=== PATIENT | female | born 1985 | race Caucasian/White ===

== ENCOUNTER → 2019-07-22 11:59 | Outpatient (BNVA) | payer OTHER, SELFPAY | PROVIDERS: Family Provider Family Medicine; PCP Family Medicine; Visit Provider Nurse Practitioner Family | DX: E07.9 Disorder of thyroid, unspecified (principal); D64.9 Anemia, unspecified; R53.83 Other fatigue; E78.5 Hyperlipidemia, unspecified; R00.0 Tachycardia, unspecified | CPT/HCPCS: 80061; 82306; 82728; 83540; 83550; 84439; 84443; 84481; 86376 ==

== ENCOUNTER → 2019-08-26 11:22 | Outpatient (BNVA) | payer OTHER, SELFPAY | PROVIDERS: Family Provider Family Medicine; PCP Family Medicine; Visit Provider Nurse Practitioner Family | DX: E55.9 Vitamin D deficiency, unspecified (principal); E78.5 Hyperlipidemia, unspecified | CPT/HCPCS: 82306; 83540 ==

== ENCOUNTER → 2019-10-26 15:01 | Outpatient (BNVA) | payer OTHER, SELFPAY | PROVIDERS: Family Provider Family Medicine; PCP Family Medicine; Visit Provider Nurse Practitioner Family | DX: I10 Essential (primary) hypertension (principal); E55.9 Vitamin D deficiency, unspecified; R60.9 Edema, unspecified | CPT/HCPCS: 80048; 82306 ==

== ENCOUNTER → 2019-12-02 11:27 | Outpatient (BNVA) | payer OTHER, SELFPAY | PROVIDERS: Family Provider Family Medicine; PCP Family Medicine; Visit Provider Internal Medicine Rheumatology | DX: M19.90 Unspecified osteoarthritis, unspecified site (principal); Z79.899 Other long term (current) drug therapy; Z11.59 Encounter for screening for other viral diseases; Z11.1 Encounter for screening for respiratory tuberculosis; E61.1 Iron deficiency; Z72.89 Other problems related to lifestyle | CPT/HCPCS: 36415; 80076; 82565; 84443; 85025; 85651; 86038; 86140; 86431; 86480; 86704; 86803; 87340; 99203; 99204 ==

== ENCOUNTER 2020-09-19 22:18 | Emergency (ER) | payer OTHER, SELFPAY ==
[2020-09-19 22:21] VITALS: BP 171/75; PULSE 106; RESP 18; TEMP 36.7; O2SAT 98; BMI 27.4
--- NOTE | 2020-09-19 22:32 | XR_ITS ---
WS: [id number] Exam: XR chest 1V portable [id number] Date/Time of Exam: 09/19/2020 10:34 PM Reason For Exam: cough x 1 week Comparison 02/01/2011. Findings: The lungs are clear and fully expanded. Costophrenic angles are sharp. No infiltrates. Bronchovascula r relief appears normal. Cardiac silhouette is unremarkable. Bony elements are intact. XR/XR chest 1V portable [id number] IMPRESSION: Unremarkable chest radiograph.
--- NOTE | 2020-09-19 22:36 | ED_ITS ---
HPI - General Adult General: Chief complaint: General Medical Stated complaint: cough x 1 week Time Seen by Provider: 09/19/20 22:20 History of Present Illness: HPI narrative: Patient presents with a cough over the last week. Has seen her primary care provider who diagnosed her with flareup of her allergies receive some prednisone. Patient was doing a bit better then started having coughing fit when she was outside at her son's track meet. Does have a lot of clear nasal drainage drainage on back her throat and cough. Denies any fever chills shortness of breath. MD complaint: Cough and nasal drainage Onset (ago): day(s) Associated symptoms: Reports cough; Deny chest pain, dyspnea, headache(s), nausea, rash or vomiting Review of Systems Narrative: Has had scratchy throat scratchy roof the mouth eyes itching clear nasal drainage history of seasonal allergies but has been a while since she has had an attack like this. Const: Denies: fever(s), chills or body aches Eyes: Denies: change in vision or blurry vision ENMT: Reports: nasal congestion; Denies: throat pain Card: Denies: chest pain or dyspnea on exertion Resp: Reports: non-productive cough and chest congestion; Denies: dyspnea, productive cough, wheezing, stridor, pain on inspiration or hemoptysis GI: Denies: abdominal pain, nausea or vomiting Musc: Denies: extremity pain Skin/Breast: Denies: rash Neuro: Denies: headache(s) Psych: Denies: anxiety or depression Amadeo/Lymph: Denies: easy bruising PFSH ED PFSH: Medical History High risk medication use Hypertension Inflammatory arthritis Iron deficiency Pre-eclampsia Surgical History History of knee surgery History of laparoscopy Family History Mother Thyroid activity decreased Other Cancer Chronic kidney disease (CKD) Diabetes Family history of premature coronary artery disease Hypertension Lupus Rheumatoid arthritis Denies family history of Hyperlipidemia Lung disease Stroke Female Reproductive History: Date of last menstrual period: 07/28/19 Physical Exam Const: COMMON NORMALS: no acute distress, average body habitus and patient oriented x3 HENMT: COMMON NORMALS: normocephalic and TM's normal bilaterally HEAD & SCALP: normal to inspection and normocephalic FACE & SINUS: normal facial exam NOSE: Nasal discharge present clear TYMPANIC MEMBRANE: TM's normal bilaterally MOUTH: Normal oral and palatal mucosa present THROAT: posterior oropharynx normal Eye: COMMON NORMALS: conjunctivae normal GENERAL EYE: appearance normal, both eyes and all related structures CONJUNCTIVA: Yes conjunctivae normal Neck/C-Spine: COMMON NORMALS: no JVD Chest: COMMONS NORMALS: normal inspection of the chest Resp: COMMON NORMALS: normal respiratory effort and clear to auscultation bilaterally AUSCULTATION: clear to auscultation bilaterally Cardio: COMMON NORMALS: no JVD and regular rhythm RATE: tachycardic RHYTHM: regular rhythm GI: COMMON NORMALS: Normal to inspection, nondistended, normoactive bowel sounds present Extremity: COMMON NORMALS: normal to inspection and full ROM Neuro: COMMON NORMALS: patient oriented x3 Course Vital Signs: Vital signs: Vital Signs Temperature 98.1 F 09/19/20 22:21 Pulse Rate 106 H 09/19/20 22:21 Respiratory Rate 18 09/19/20 22:21 Blood Pressure 171/75 09/19/20 22:21 Pulse Oximetry 98 09/19/20 22:21 Discharge Plan Discharge Prescriptions: No Action labetalol 100 mg tablet 100 mg PO DAILY RF: 0 ferrous sulfate 325 mg (65 mg iron) tablet,delayed release (DR/EC) 325 mg PO BID Qty: 60 RF: 0 cholecalciferol (vitamin D3) 1,250 mcg (50,000 unit) capsule 1,250 mcg PO .weekly Qty: 4 RF: 2 prednisone 5 mg tablet 10 mg PO DAILY Qty: 60 RF: 3 bupropion HCl [Wellbutrin SR] 150 mg tablet sustained-release 12 hr 75 mg PO BID Qty: 60 RF: 1 Coding Level of Care Code ED [employer]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
[2020-09-19] MEDS: benzonatate 100 mg Capsule 200 MG PO (22:50)
[2020-09-19] MEDS: triamcinolone 40 mg/mL SDV 80 MG IM (23:10)
[2020-09-19 23:17] VITALS: BP 151/70; PULSE 100; RESP 18; O2SAT 100
== END 2020-09-19 23:18 | disposition home or self-care (01) ==
PROVIDERS: Emergency Provider Nurse Practitioner Family; PCP Family Medicine
DX: R05 Cough (principal); I10 Essential (primary) hypertension
CPT/HCPCS: 71045; 96372; 99283; J3301

== ENCOUNTER 2021-02-14 11:08 | Emergency (ER) | payer OTHER, SELFPAY ==
--- NOTE | 2021-02-14 | CTR_ITS ---
[facility] Final Radiology Report Call: [phone] assistance Online chat: [email or web address] Name: CHRISTINE CABALLERO Age: 35Years F Date: 02/14/2021 SSN: [id number] : 1985 Study: CT HEAD WO Requesting Physician: MEHREEN ARMENTA Images: [id number] Provided Clinical History: Headache with left-sided weakness Procedure Accession CTDI Vol (mGy) DLP (mGy-cm) CT HEAD WO [id number] 898.18 PROCEDURE INFORMATION: Exam: CT Head Without Contrast Exam date and time: 02/14/2021 11:33 AM Age: 35 years old Clinical indication: Pain; Headache not specified; Patient HX: Byrne/left side weakkness/high BP; Additional info: Headache with left-sided weakness TECHNIQUE: Imaging protocol: Computed tomography of the head without contrast. Radiation optimization: All CT scans at this facility use at least one of these dose optimization techniques: automated exposure control; mA and/or kV adjustment per patient size (includes targeted exams where dose is matched to clinical indication); or iterative reconstruction. COMPARISON: CT head wo con* [id number] 05/15/2015 1:14 PM RADIATION DOSE METRICS: Total DLP (mGy-cm): 898.18 FINDINGS: Brain: Normal. No hemorrhage. Unremarkable white matter. No mass effect. Cerebral ventricles: No ventriculomegaly. Paranasal sinuses: Visualized sinuses are unremarkable. No fluid levels. Mastoid air cells: Visualized mastoid air cells are well aerated. Bones/joints: Unremarkable. No acute fracture. Soft tissues: Unremarkable. IMPRESSION: No acute intracranial abnormality. Thank you for allowing us to participate in the care of your patient. Dictated and Authenticated by: Aung Joe MD 02/14/2021 1:14 PM Central Time ([place] & [place]) [facility]
[2021-02-14 11:12] VITALS: BP 169/106; PULSE 80; RESP 18; TEMP 36.7; O2SAT 100; BMI 31.1
--- NOTE | 2021-02-14 11:24 | ECG_ITS ---
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 Measurements Intervals [place] Rate: 79 P: 24 DE: 150 QRS: 0 QRSD: 93 T: 0 QT: 366 QTc: 421 Interpretive Statements SINUS RHYTHM No previous ECG available for comparison Electronically Signed On 02-14-2021 23:31:50 CDT by Mckay Jade M.D. [email or web address]
--- NOTE | 2021-02-14 11:24 | XR_ITS ---
WS: [id number] Portable AP upright chest, 02/14/2021 Clinical Data: CP Comparison: Portable chest, 09/19/2020. Findings: No nodules, masses or effusions are seen. The heart is normal. The pulmonary vascularity is not remarkable. No pneumothorax is present. Monitor leads on the chest wall. XR/XR chest 1V portable [id number] Impression: Negative chest.
--- NOTE | 2021-02-14 11:32 | W.ED.CHESTPA ---
HPI - Chest Pain General: Chief Complaint: Chest Pain Stated Complaint: hypertensive emergency Time Seen by Provider: 02/14/21 11:24 History of Present Illness: HPI narrative: Patient is a 35-year-old female comes to the ED via EMS with elevated blood pressures, headache and left-sided weakness. Symptoms started approximately 10 AM. She states she developed a really intense headache on the right side of her head and she says it seems like it is right behind the right eye. She rates the pain an 8 out of 10 and endorses photophobia. She also developed some left-sided weakness upon onset of headache. She described feeling like she could not control the left side of her body well. She says is now here in the ED most of her left-sided weakness has improved but still feels a little residual symptoms. The EMS reported elevated blood pressures. She denies any current chest pain, shortness of breath, abdominal pain, nausea/vomiting, bladder or bowel symptoms. Associated symptoms: Deny abdominal pain, dyspnea, fever(s), nausea, palpitations or vomiting Review of Systems Const: Denies: fever(s), chills or fatigue Eyes: Denies: change in vision or eye discomfort ENMT: Denies: throat pain, odynophagia, nasal discharge or nasal congestion Card: Denies: chest pain, palpitations, edema, swelling of feet/ankles, dyspnea on exertion or orthopnea Resp: Denies: dyspnea, productive cough or non-productive cough GI: Denies: abdominal pain, nausea, vomiting, diarrhea, constipation or hematochezia : Denies: flank pain, dysuria or hematuria Musc: Denies: neck pain, back pain or extremity swelling Skin/Breast: Denies: rash or new lesions Neuro: Reports: headache(s) and weakness in extremities (left upper and lower extremities); Denies: numbness in extremities PFS ED PFSH: Medical History High risk medication use Hypertension Inflammatory arthritis Iron deficiency Pre-eclampsia Surgical History History of knee surgery History of laparoscopy Family History Mother Thyroid activity decreased Other Cancer Chronic kidney disease (CKD) Diabetes Family history of premature coronary artery disease Hypertension Lupus Rheumatoid arthritis Denies family history of Hyperlipidemia Lung disease Stroke Female Reproductive History: Date of last menstrual period: 01/24/21 Physical Exam Const: COMMON NORMALS: no acute distress, patient oriented x3, healthy appearing and alert GENERAL APPEARANCE: cooperative and comfortable HENMT: COMMON NORMALS: normocephalic HEAD & SCALP: normocephalic MOUTH: Normal oral and palatal mucosa present THROAT: posterior oropharynx normal and uvula midline Eye: COMMON NORMALS: Equal, round and reactive pupils present and EOMs intact bilaterally PUPIL: Yes Equal, round and reactive pupils present Neck/C-Spine: COMMON NORMALS: supple GENERAL: Yes normal visual inspection Resp: COMMON NORMALS: normal respiratory effort, No retractions, No use of accessory muscles and clear to auscultation bilaterally AUSCULTATION: clear to auscultation bilaterally Cardio: COMMON NORMALS: regular rate, regular rhythm, S1 normal heart sound present, S2 normal heart sound present, No gallops present (Cardio), No clicks present (Cardio), No murmurs present (Cardio) and Peripheral pulses 2+ throughout RATE: regular rate RHYTHM: regular rhythm HEART SOUNDS: S1 normal heart sound present and S2 normal heart sound present PERIPHERAL PULSES: Peripheral pulses 2+ throughout GI: COMMON NORMALS: Normal to inspection, nondistended, normoactive bowel sounds present, Soft to palpation, non-tender and no masses PALPATION: Yes Soft to palpation : COMMON NORMALS: Yes no CVA tenderness BLADDER/KIDNEY EXAM: Yes no CVA tenderness Back/Pelvis: COMMON NORMALS: no CVA tenderness Extremity: COMMON NORMALS: normal to inspection Neuro: COMMON NORMALS: patient oriented x3, CN's II-XII intact bilaterally, moves all extremities, no focal motor deficits and no sensory deficits noted SENSORIUM/ORIENTATION: Yes alert COORDINATION/BALANCE: [id number] test normal SPEECH: speech normal SENSORY EXAM: Yes extremities (intact) MOTOR EXAM: 5/5 motor strength present throughout and Pronator motor function not present COORDINATION: [id number] test normal Skin: GENERAL SKIN EXAM: dry skin Course Reevaluation(s): Reevaluation #1: After patient received migraine meds her headache greatly improved and she is ready to go home and rest. Vital Signs: Vital signs: Vital Signs Temperature 98 F 02/14/21 14:11 Pulse Rate 68 02/14/21 14:11 Respiratory Rate 16 02/14/21 14:11 Blood Pressure 158/72 02/14/21 14:11 Pulse Oximetry 100 02/14/21 14:11 MDM - Chest Pain MDM Narrative: Medical decision making narrative: Patient is a 35-year-old female comes to the ED with a migraine headache and an episode of left sided weakness. Patient has a history of iron deficiency anemia. Left-sided weakness resolved upon arrival to the ED. Vital stable. Neuro exam showed no deficits. Hemoglobin 9.9 and the rest of CBC and CMP were unremarkable. CT of head showed no acute findings. EKG showed normal sinus rhythm, 79 bpm, no ST segment elevation or depression seen. Patient was given IV migraine meds and her headache improved greatly and she is ready to go home and rest. Patient diagnosed with migraine and anemia and discharged home. Told to follow-up with PCP in 5 to 7 days for reevaluation. Return ED precautions given. Told patient to have her hemoglobin rechecked at next PCP visit. Patient understood and agree with plan. Lab Data: Attestation: I reviewed the patient's lab results. Labs: Lab Results 02/14/21 02/14/21 02/14/21 11:00 11:00 11:00 WBC 13.8 10^3/uL H 10 ^3/uL (4.0-10.0) RBC 3.88 10^6/uL L 10 ^6/uL (4.1-5.3) Hgb 9.9 g/dL L g/dL (11.5-15.3) Hct 33.6 % L % (37.0-47.0) MCV 86.6 fl fl (81-99) MCH 25.5 pg L pg (28.0-34.0) MCHC 29.5 g/dL L g/dL (30.0-36.0) RDW 15.8 % H % (12.1-15.1) Plt Count 339 10^3/cmm 10^3 /cmm (130-400) MPV 10.8 fL H fL (7.4-10.4) Neut % (Auto) 60.1 % % Lymph % (Auto) 31.4 % % Runnels % (Auto) 5.7 % % Eos % (Auto) 1.4 % % Baso % (Auto) 0.7 % % Neut # (Auto) 8.28 10^3/uL H 10 ^3/uL (1.8-7.7) Lymph # (Auto) 4.3 10^3/uL 10^3/ uL (0.8-4.8) Runnels # (Auto) 0.8 10^3/uL 10^3/ uL (0.2-0.9) Eos # (Auto) 0.2 10^3/uL 10^3/ uL (0.0-0.8) Baso # (Auto) 0.1 10^3/uL 10^3/ uL (0.0-0.1) Nucleated RBC % (a uto) 0 % % Nucleated RBCs # 0.0 /100WBC /100W BC D-Dimer <= 0.27 ug/mIFEU ug/mIFEU (0-0.59) Sodium 138 mmol/L mmol/L (136-145) Potassium 3.8 mmol/L mmol/L (3.5-5.1) Chloride 98 mmol/L mmol/L (98-107) Carbon Dioxide 25 mmol/L mmol/L (22-29) Anion Gap 18.8 (5-19) BUN 8 mg/dL mg/dL (6-20) Creatinine 0.6 mg/dL mg/dL (0.5-0.9) GFR Calculation 112.5 mL/min mL/m in (90-130) Glucose 96 mg/dL mg/dL (65-115) Calculated Osmolal ity 284 mOsm/kg L mOs m/kg (285-295) Calcium 9.3 mg/dL mg/dL (8.5-10.5) Total Bilirubin 0.5 mg/dL mg/dL (0.15-1.2) AST 60 U/L H U/L (0-32) ALT 41 U/L H U/L (0-33) Alkaline Phosphata se 83 IU/L IU/L (35-105) Troponin T Baselin e Total Protein 6.9 g/dL g/dL (6.6-8.7) Albumin 4.4 g/dL g/dL (3.5-5.2) Globulin 2.5 g/dL g/dL (1.3-4.6) HCG, Qual 02/14/21 02/14/21 11:00 11:00 WBC RBC Hgb Hct MCV MCH MCHC RDW Plt Count MPV Neut % (Auto) Lymph % (Auto) Runnels % (Auto) Eos % (Auto) Baso % (Auto) Neut # (Auto) Lymph # (Auto) Runnels # (Auto) Eos # (Auto) Baso # (Auto) Nucleated RBC % (a uto) Nucleated RBCs # D-Dimer Sodium Potassium Chloride Carbon Dioxide Anion Gap BUN Creatinine GFR Calculation Glucose Calculated Osmolal ity Calcium Total Bilirubin AST ALT Alkaline Phosphata se Troponin T Baselin e 7 ng/L ng/L (0-10) Total Protein Albumin Globulin HCG, Qual Negative (Negative) Imaging Data^: CXR: Attestation: I personally reviewed and interpreted this imaging study as follows: Radiologist's impression: [facility] [address] [place] [id number] XRay Report Signed Patient: Sadaf Horner Unit #: [id number] : 1985 Age/Sex: 35 / F ADM Date: 02/14/21 Loc: ER Room/Bed: Attending Dr: Ordering Provider/Ordering MD: Mehreen Armenta Date of Service: 02/14/21 Procedure(s): XR chest 1V portable [id number] Accession Number(s): [id number] Report Number: [id number] WS: [id number] Portable AP upright chest, 02/14/2021 Clinical Data: CP Comparison: Portable chest, 09/19/2020. Findings: No nodules, masses or effusions are seen. The heart is normal. The pulmonary vascularity is not remarkable. No pneumothorax is present. Monitor leads on the chest wall. XR/XR chest 1V portable [id number] Impression: Negative chest. Dictated By: Lizet Braun MD Signed By: Lizet Braun MD Signed Date/Time: 02/14/211217 DD/ 121 CT Head: Attestation: I personally reviewed and interpreted this imaging study as follows: Radiologist's impression: [facility] Final Radiology Report Call: [phone] assistance Online chat: [email or web address] Name: SADAF HORNER Age: 35Years F Date: 02/14/2021 SSN: [id number] : 1985 Study: CT HEAD WO Requesting Physician: MEHREEN ARMENTA Images: [id number] Add?l Studies: Provided Clinical History: Headache with left-sided weakness Procedure Accession CTDI Vol (mGy) DLP (mGy-cm) CT HEAD WO [id number] 898.18 Page 1 of 2 PROCEDURE INFORMATION: Exam: CT Head Without Contrast Exam date and time: 02/14/2021 11:33 AM Age: 35 years old Clinical indication: Pain; Headache not specified; Patient HX: Byrne/left side weakkness/high BP; Additional info: Headache with left-sided weakness TECHNIQUE: Imaging protocol: Computed tomography of the head without contrast. Radiation optimization: All CT scans at this facility use at least one of these dose optimization techniques: automated exposure control; mA and/or kV adjustment per patient size (includes targeted exams where dose is matched to clinical indication); or iterative reconstruction. COMPARISON: CT head wo con* [id number] 05/15/2015 1:14 PM RADIATION DOSE METRICS: Total DLP (mGy-cm): 898.18 FINDINGS: Brain: Normal. No hemorrhage. Unremarkable white matter. No mass effect. Cerebral ventricles: No ventriculomegaly. Paranasal sinuses: Visualized sinuses are unremarkable. No fluid levels. Mastoid air cells: Visualized mastoid air cells are well aerated. Bones/joints: Unremarkable. No acute fracture. Soft tissues: Unremarkable. IMPRESSION: No acute intracranial abnormality. SADAF HORNER Final Radiology Report CONFIDENTIALITY STATEMENT This report is intended only for use by the referring physician, and only in accordance with law. If you received this in error, call [phone]. Page 2 of 2 Thank you for allowing us to participate in the care of your patient. Dictated and Authenticated by: Aung Joe MD 02/14/2021 1:14 PM Central Time ([place] & [place]) EKG Data^: EKG 1: Attestation: I personally reviewed and interpreted this EKG as follows: EKG interpretation date: 02/14/21 Interpretation: Normal sinus rhythm, 79 bpm, no ST segment elevation or depression seen. Discharge Plan Discharge Patient Disposition: Home Clinical Impression: Migraine Qualifiers: Migraine type: without aura Status migrainosus presence: without status migrainosus Intractability: not intractable Qualified Code(s): G43.009 - Migraine without aura, not intractable, without status migrainosus Anemia Qualifiers: Anemia type: unspecified type Qualified Code(s): D64.9 - Anemia, unspecified Condition: Stable Prescriptions: No Action omeprazole 40 mg capsule,delayed release(DR/EC) 40 mg PO QAM RF: 0 propranolol 20 mg tablet 40 mg PO BID RF: 0 prednisone 5 mg tablet 10 mg PO DAILY RF: 0 Discharge Orders: Discharge ED (Routine); Ordered 02/14/21 Ordered By: Mehreen Armenta Referrals: Bryson Staton DO [Primary Care Provider] - Discharge Diet: Regular Discharge Activity: Resume usual activity Patient Instructions: Migraine Headache (ED), Anemia (ED) Activity Restrictions/Additional Instructions: Follow-up with medical provider as directed in 5 to 7 days for reevaluation. Have your PCP recheck your hemoglobin level at next visit. Continue taking all home medications as previously prescribed. Return to the ER or your medical provider if condition worsens. Please read and understand discharge instructions. Thank you for choosing [facility] for your healthcare needs today. Please realize this is an emergency room and that we are providing you with a medical screening exam and this may not be complete and all inclusive of all the testing and or work up that you may need to determine your ailment or severity of your illness. It is very important that you follow up as instructed or that you return to the Emergency Department should you have concerns or if your condition changes or worsens in any way. 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
[2021-02-14 11:40] LABS: Basophils # 0.1 10^3/uL (0.0-0.1); Basophils % 0.7 %; Eosinophils # 0.2 10^3/uL (0.0-0.8); Eosinophils % 1.4 %; Hematocrit 33.6 % (37.0-47.0); Hemoglobin 9.9 g/dL (11.5-15.3); Lymphocytes # 4.3 10^3/uL (0.8-4.8); Lymphocytes % 31.4 %; Mean Corpuscular HGB Conc 29.5 g/dL (30.0-36.0); Mean Corpuscular Hemoglobin 25.5 pg (28.0-34.0); Mean Corpuscular Volume 86.6 fl (81-99); Mean Platelet Volume 10.8 fL (7.4-10.4); Monocytes # 0.8 10^3/uL (0.2-0.9); Monocytes % 5.7 %; Neutrophils # 8.28 10^3/uL (1.8-7.7); Neutrophils % 60.1 %; Nucleated Red Blood Cells % 0 %; Platelet Count 339 10^3/cmm (130-400); Red Blood Count 3.88 10^6/uL (4.1-5.3); Red Cell Distribution Width 15.8 % (12.1-15.1); White Blood Count 13.8 10^3/uL (4.0-10.0)
[2021-02-14 11:42] VITALS: BP 158/95; PULSE 78; RESP 18; TEMP 36.6; O2SAT 98
[2021-02-14 12:04] LABS: HCG, Serum Qual Negative (Negative)
[2021-02-14 12:11] LABS: D Dimer <= 0.27 ug/mIFEU (0-0.59)
[2021-02-14 12:13] LABS: Alanine Aminotransferase 41 U/L (0-33); Albumin Level 4.4 g/dL (3.5-5.2); Alkaline Phosphatase 83 IU/L (35-105); Anion Gap 18.8 (5-19); Aspartate Amino Transferase 60 U/L (0-32); Blood Urea Nitrogen 8 mg/dL (6-20); Calcium 9.3 mg/dL (8.5-10.5); Carbon Dioxide 25 mmol/L (22-29); Chloride 98 mmol/L (98-107); Globulin 2.5 g/dL (1.3-4.6); Glomerular Filtration Rate 112.5 mL/min (90-130); Glucose 96 mg/dL (65-115); Osmolality Calculated 284 mOsm/kg (285-295); Potassium 3.8 mmol/L (3.5-5.1); Sodium 138 mmol/L (136-145); Total Bilirubin 0.5 mg/dL (0.15-1.2); Total Protein 6.9 g/dL (6.6-8.7); Troponin(5th) Baseline 7 ng/L (0-10)
[2021-02-14] MEDS: ondansetron 2 mg/ML SDV 2 mL 4 MG IVP (12:28)
[2021-02-14] MEDS: sodium chloride 0.9% 1,000 ML 999 ML IV (12:28)
--- NOTE | 2021-02-14 12:54 | PC.PHAR ---
PT STATES SHE TAKES CARE OF HER OWN MEDICATIONS-PT BROUGHT IN MEDICATIONS BOTTLES-PT BROUGHT IN WELLBUTRIN SR 75MG BID RX LAST FILLED ON 01/11/21 60D/S PT STATES SHE DOESNT TAKE THIS MEDICATION STATES IT WAS FILLED ON ACCIDENT-PT STATES SHE IS STILL TAKES PREDNISONE 10MG DAILY [facility] LAST FILLED ON 12/02/2019 [facility] STATES THE RX HAD REFILLS BUT STATES THE PT NEVER REFILLED AND REFILLS ARE NOW PT DID NOT BRING IN THAT MEDICATION BOTTLE
[2021-02-14 13:02] VITALS: BP 170/101; PULSE 82; RESP 18; TEMP 36.6; O2SAT 100
[2021-02-14 13:29] VITALS: BP 161/87; PULSE 64; RESP 16; TEMP 36.6; O2SAT 100
[2021-02-14] MEDS: diphenhydrAMINE 50 mg/mL SDV 1mL 25 MG IVP (13:32)
[2021-02-14] MEDS: dexamethasone 10 mg/mL INJ IVP (13:32)
[2021-02-14] MEDS: ketorolac 30 mg/mL INJ IVP (13:33)
[2021-02-14 14:11] VITALS: BP 158/72; PULSE 68; RESP 16; TEMP 36.6; O2SAT 100
== END 2021-02-14 14:13 | disposition home or self-care (01) ==
PROVIDERS: Emergency Provider Physician Assistant; PCP Family Medicine
DX: G43.009 Migraine without aura, not intractable, without status migrainosus (principal); D64.9 Anemia, unspecified; I10 Essential (primary) hypertension
CPT/HCPCS: 70450; 71045; 80053; 84484; 84703; 85025; 85378; 87040; 93005; 96361; 96374; 96375; 99284; J1100; J1200; J1885; J2405; J7030

== ENCOUNTER 2021-03-01 13:40 | Outpatient (CLI) | payer OTHER, SELFPAY ==
--- NOTE | 2021-03-01 12:00 | CT_ITS ---
WS: [id number] CT ABDOMEN AND PELVIS WITH CONTRAST HISTORY: ABD PAIN, WEIGHT GAIN, DIARRHEA, HEMATOCHEZIA TECHNIQUE: Imaging performed of the abdomen and pelvis with IV contrast. Single phase imaging of the abdomen. Coronal and sagittal reformats are submitted. All CT scans at [facility] use at [facility] [facility] one of these dose optimization techniques: automated exposure control; mA and/or kV adjustment per patient size (includes targeted exams where dose is matched to clinical indication); or iterative re construction. IV CONTRAST: Omnipaque 300; 95 mL IV. Oral contrast: Yes. DLP: 1101.52 mGycm COMPARISON: None available. Lower thorax: Lung bases are clear. Heart is normal size. No hiatal hernia. Liver/biliary system: Moderate hepatic steatosis. Liver is also enlarged measuring 19.2 cm in length. Normal portal vein. No bile duct dilatation. Gallbladder: Normal. No gallstones or wall thickening. No pericholecystic fluid. Pancreas: Normal size pancreas and pancreatic duct. No adjacent inflammation. Spleen: Normal size spleen. No mass or infarct. Adrenal glands: Normal. Right kidney: Normal. Left kidney: Normal. Aorta: Normal. Lymphadenopathy: None. Free fluid: None. GI tract: Normal appendix. Mild diffuse fecal retention. No obstruction. Normal small bowel. Abdominal wall: Fat-containing umbilical hernia. Pelvis: Uterus is anteverted. There is a large well-circumscribed low-attenuation mass in the LEFT ad nexa. This mass extends over length of 6.1 cm x 5.3 x 6.1 cm. Most likely a complex cyst or endometri juancho. Bones: Unremarkable. CT/CT abdomen pelvis w con* [id number] IMPRESSION: 1. Moderate hepatomegaly and diffuse moderate hepatic steatosis. 2. Normal appendix. 3. Fat-containing abdominal wall hernia. 4. Well-circumscribed low-attenuation mass in the LEFT adnexa measures 6.1 x 5 .3 x 6.1 cm. Probably representing an ovarian cyst. With history of endometrios is could be this could be an endometrioma. Recommend follow-up transvaginal pel baldemar ultrasound imaging for further characterization.
[2021-03-01] MEDS: iohexol 300 mg/mL 50 mL Btl PO (14:07)
[2021-03-01] MEDS: iohexol 300 mg/mL 100 mL Btl IV (14:07)
== END 2021-03-01 13:41 | disposition home or self-care (01) ==
PROVIDERS: PCP Family Medicine; Visit Provider Surgery
DX: R10.9 Unspecified abdominal pain (principal); R63.5 Abnormal weight gain; R19.7 Diarrhea, unspecified; K92.1 Melena; R16.0 Hepatomegaly, not elsewhere classified; K76.0 Fatty (change of) liver, not elsewhere classified; K43.9 Ventral hernia without obstruction or gangrene; R22.32 Localized swelling, mass and lump, left upper limb
CPT/HCPCS: 74177; Q9967

== ENCOUNTER 2021-10-02 17:02 | Inpatient (IN) | payer OTHER, SELFPAY ==
[2021-10-02] VITALS (12 sets, daily range): BP systolic 125–181; BP diastolic 73–124; PULSE 67–102; RESP 16–20; TEMP 35.6–36.5; O2SAT 94–100; BMI 29.5
--- NOTE | 2021-10-02 17:35 | ED_ITS ---
HPI - Abdominal Pain General: Chief Complaint: Abdominal Pain Stated Complaint: eryn cp Time Seen by Provider: 10/02/21 17:28 History of Present Illness: Patient is a 36-year-old female comes to the ED with abdominal pain. Symptoms started approximately 3 days ago. Abdominal pain is located in the right upper quadrant and epigastric region that radiates into the chest and back. Abdominal pain is rated 10 out of 10. She endorses having some nausea and vomiting. Eating any food makes symptoms worse and started symptoms. She has had episodes like this before in the past but says this abdominal pain is worse than prior times. Associated Symptoms: Reports nausea and vomiting; Denies chills, constipation, diarrhea, dysuria, fever(s), hematochezia and hematuria Related Data: Date of Last Menstrual Period: 09/21/21 Review of Systems Const: Denies: fever(s), chills or fatigue Eyes: Denies: change in vision or eye discomfort ENMT: Denies: throat pain, odynophagia, nasal discharge or nasal congestion Card: Denies: chest pain, palpitations, edema, swelling of feet/ankles, dyspnea on exertion or orthopnea Resp: Denies: dyspnea, productive cough or non-productive cough GI: Reports: abdominal pain, nausea and vomiting; Denies: diarrhea, constipation or hematochezia : Denies: flank pain, dysuria or hematuria Musc: Denies: neck pain, back pain or extremity swelling Skin/Breast: Denies: rash or new lesions Neuro: Denies: headache(s), numbness in extremities or weakness in extremities PFS ED PFSH: Medical History High risk medication use Hypertension Inflammatory arthritis Iron deficiency Pre-eclampsia Surgical History History of knee surgery History of laparoscopy Family History Mother Thyroid activity decreased Other Cancer Chronic kidney disease (CKD) Diabetes Family history of premature coronary artery disease Hypertension Lupus Rheumatoid arthritis Denies family history of Hyperlipidemia Lung disease Stroke Social History Smoking and tobacco status: current every day smoker Female Reproductive History: Date of last menstrual period: 09/21/21 Physical Exam Const: COMMON NORMALS: patient oriented x3 and alert GENERAL APPEARANCE: cooperative HENMT: COMMON NORMALS: normocephalic HEAD & SCALP: normocephalic MOUTH: Normal oral and palatal mucosa present THROAT: posterior oropharynx normal and uvula midline Neck/C-Spine: COMMON NORMALS: supple GENERAL: Yes normal visual inspection Resp: COMMON NORMALS: normal respiratory effort, No retractions, No use of accessory muscles and clear to auscultation bilaterally AUSCULTATION: clear to auscultation bilaterally Cardio: COMMON NORMALS: regular rate, regular rhythm, S1 normal heart sound present, S2 normal heart sound present, No gallops present (Cardio), No clicks present (Cardio), No murmurs present (Cardio) and Peripheral pulses 2+ throughout RATE: regular rate RHYTHM: regular rhythm HEART SOUNDS: S1 normal heart sound present and S2 normal heart sound present PERIPHERAL PULSES: Peripheral pulses 2+ throughout GI: COMMON NORMALS: Normal to inspection, nondistended, normoactive bowel sounds present, Soft to palpation and no masses PALPATION: Yes Soft to palpation and Yes Tenderness to palpation present (GI) Details: RUQ (Tenderness with positive Hendrix sign) and other (Epigastric pain) : COMMON NORMALS: Yes no CVA tenderness BLADDER/KIDNEY EXAM: Yes no CVA tenderness Back/Pelvis: COMMON NORMALS: no CVA tenderness Extremity: COMMON NORMALS: normal to inspection Neuro: COMMON NORMALS: patient oriented x3 SENSORIUM/ORIENTATION: Yes alert GAIT: Yes Normal gait present Skin: GENERAL SKIN EXAM: dry skin Course Consultations: Consultation #1: I contacted Dr. Montero and told him about patient case. He agreed to have patient admitted. Time: 20:28 Vital Signs: Vital signs: Vital Signs Temperature 96.4 F L 10/02/21 17:03 Pulse Rate 83 10/02/21 18:24 Respiratory Rate 17 10/02/21 19:35 Blood Pressure 165/107 10/02/21 18:24 Pulse Oximetry 99 10/02/21 19:35 MDM - Abdominal Pain Medical Decision Making Patient is a 36-year-old female comes to the ED with epigastric and right upper quadrant abdominal pain that radiated to her back. Symptoms been going on for 3 days. Vitals are stable. Exam shows epigastric tenderness along with right upper quadrant abdominal tenderness. White blood cell count of 15.2 and lipase was over 300. Ultrasound gallbladder showed no acute gallbladder findings but noted some moderate hepatomegaly with fatty infiltrates of the liver .CT of abdomen showed moderate acute pancreatitis. Talk with Dr. Nassar and he agreed for patient to be admitted. I contacted the hospitalist and he accepted admission. Lab Data I reviewed the patient's lab results. : 10/02/21 17:56 10/02/21 17:56 Labs/Radiology: Radiology Impressions Gallbladder Ultrasound 10/02/21 17:36 IMPRESSION: Moderate hepatomegaly and moderate fatty infiltration of the liver. Abdomen/Pelvis CT 10/02/21 19:25 IMPRESSION: 1. Changes consistent with moderate acute pancreatitis as described in the report. 2. Moderate hepatomegaly and [id number] fatty infiltration of the liver. 3. Dominant follicle in the right ovary. 4. Scattered diverticula in the colon. No evidence for diverticulitis. 5. Incidental/nonacute findings are listed in the report. Laboratory Results WBC 15.2 10^3/uL (4.0-10.0) H 10/02/21 17:56 RBC 4.28 10^6/uL (4.1-5.3) 10/02/21 17:56 Hgb 16.3 g/dL (11.5-15.3) H 10/02/21 17:56 Hct 45.5 % (37.0-47.0) 10/02/21 17:56 MCV 106.3 fl (81-99) H 10/02/21 17:56 MCH 38.1 pg (28.0-34.0) H 10/02/21 17:56 MCHC 35.8 g/dL (30.0-36.0) 10/02/21 17:56 RDW 13.2 % (12.1-15.1) 10/02/21 17:56 Plt Count 325 10^3/cmm (130-400) 10/02/21 17:56 MPV 10.6 fL (7.4-10.4) H 10/02/21 17:56 Neut % (Auto) 71.9 % 10/02/21 17:56 Lymph % (Auto) 19.9 % 10/02/21 17:56 Frontier % (Auto) 4.6 % 10/02/21 17:56 Eos % (Auto) 2.2 % 10/02/21 17:56 Baso % (Auto) 0.7 % 10/02/21 17:56 Neut # (Auto) 10.96 10^3/uL (1.8-7.7) H 10/02/21 17:56 Lymph # (Auto) 3.0 10^3/uL (0.8-4.8) 10/02/21 17:56 Frontier # (Auto) 0.7 10^3/uL (0.2-0.9) 10/02/21 17:56 Eos # (Auto) 0.3 10^3/uL (0.0-0.8) 10/02/21 17:56 Baso # (Auto) 0.1 10^3/uL (0.0-0.1) 10/02/21 17:56 Nucleated RBC % (auto) 0 % 10/02/21 17:56 Nucleated RBCs # 0.0 /100WBC 10/02/21 17:56 Sodium 136 mmol/L (136-145) 10/02/21 17:56 Potassium 3.7 mmol/L (3.5-5.1) 10/02/21 17:56 Chloride 98 mmol/L (98-107) 10/02/21 17:56 Carbon Dioxide 21 mmol/L (22-29) L 10/02/21 17:56 Anion Gap 20.7 (5-19) H 10/02/21 17:56 BUN 10 mg/dL (6-20) 10/02/21 17:56 Creatinine 0.6 mg/dL (0.5-0.9) 10/02/21 17:56 GFR Calculation 111.9 mL/min (90-130) 10/02/21 17:56 Glucose 114 mg/dL (65-115) 10/02/21 17:56 Calculated Osmolality 282 mOsm/kg (285-295) L 10/02/21 17:56 Calcium 10.8 mg/dL (8.5-10.5) H 10/02/21 17:56 Total Bilirubin 0.9 mg/dL (0.15-1.2) 10/02/21 17:56 AST 134 U/L (0-32) H 10/02/21 17:56 ALT 114 U/L (0-33) H 10/02/21 17:56 Alkaline Phosphatase 107 IU/L (35-105) H 10/02/21 17:56 Troponin T Baseline 6 ng/L (0-10) 10/02/21 17:56 Troponin T 120 Minute 6.00 ng/L (0-10) 10/02/21 19:32 Delta Troponin T 0 ABS# (0-10) 10/02/21 19:32 Total Protein 8.1 g/dL (6.6-8.7) 10/02/21 17:56 Albumin 4.9 g/dL (3.5-5.2) 10/02/21 17:56 Globulin 3.2 g/dL (1.3-4.6) 10/02/21 17:56 Lipase > 300 U/L (13-60) H 10/02/21 17:56 HCG, Qual Negative (Negative) 10/02/21 17:56 EKG Data EKG 1: EKG interpretation date: 10/02/21 Interpretation: EKG performed at 1737 and I reviewed it at 1740 sinus rhythm, 80 bpm, no ST segment elevation or depression seen. Discharge Plan Discharge Condition: Stable Prescriptions: No Action ondansetron HCl 4 mg tablet 4 mg PO Q6H Qty: 20 0RF omeprazole 40 mg capsule,delayed release(DR/EC) 40 mg PO QAM 0RF propranolol 20 mg tablet 40 mg PO BID 0RF ibuprofen 200 mg Tablet 200 mg PO Q6H PRN (Reason: Pain) 0RF Amadeo-Plex 85 mg PO DAILY 0RF Referrals: Alyce Noonan MD [Primary Care Provider] - Coding Level of Care Code ED Transitional Care Nurse for Chg Fwd Exam Comprehensive
--- NOTE | 2021-10-02 17:36 | ECG_ITS ---
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 Measurements Intervals [place] Rate: 73 P: 44 [place]: 171 QRS: -5 QRSD: 94 T: -7 QT: 378 QTc: 418 Interpretive Statements SINUS RHYTHM Compared to ECG 10/02/2021 17:37:13 No significant changes Electronically Signed On 10-02-2021 22:57:17 CDT by Oneil Simon M.D. [email or web address] [facility] [place].Zenvergebaptist memorial hospitalInauracleveland clinic euclid hospitalWeGush/store/OM/[id number]
--- NOTE | 2021-10-02 17:36 | USR_ITS ---
PROCEDURE INFORMATION: Exam: US Abdomen, Limited; Right Upper Quadrant Exam date and time: 10/02/2021 6:03 PM Age: 36 years old Clinical indication: Abdominal pain; Acute; Additional info: Ruq abdominal pain with n/v TECHNIQUE: Imaging protocol: US abdomen. Real time ultrasound with image documentation. Limited exam focused on the right upper quadrant. COMPARISON: CT abdomen pelvis w con* [id number] 03/01/2021 2:03 PM FINDINGS: Liver: Moderately increased echotexture in the liver, consistent with moderate fatty infiltration. The liver is moderately enlarged measuring 22.7 cm in length. Gallbladder: The gallbladder is unremarkable. No gallstones or intraluminal sludge. No gallbladder wall thickening. No pericholecystic fluid. Biliary ducts: Normal. No stones. No dilation. Pancreas: Incomplete visualization of the pancreas due to overlying bowel gas. Visualized portions of the pancreas are unremarkable. Right kidney: The right kidney is unremarkable. Aorta: Visualized aorta is unremarkable. Inferior vena cava: Visualized IVC is unremarkable. Portal venous: Hepatopetal flow in the portal vein. Intraperitoneal space: No ascites. US/US gall bladder [id number] IMPRESSION: Moderate hepatomegaly and moderate fatty infiltration of the liver.
[2021-10-02] MEDS: sodium chloride 0.9% 1,000 ML 999 ML IV ×2 (18:06→20:40)
[2021-10-02] MEDS: diphenhydrAMINE 50 mg/mL SDV 1mL IVP (18:06)
[2021-10-02] MEDS: ondansetron 2 mg/ML SDV 2 mL 4 MG IVP (18:06)
[2021-10-02 18:21] LABS: Basophils # 0.1 10^3/uL (0.0-0.1); Basophils % 0.7 %; Eosinophils # 0.3 10^3/uL (0.0-0.8); Eosinophils % 2.2 %; Hematocrit 45.5 % (37.0-47.0); Hemoglobin 16.3 g/dL (11.5-15.3); Lymphocytes % 19.9 %; Mean Corpuscular HGB Conc 35.8 g/dL (30.0-36.0); Mean Corpuscular Hemoglobin 38.1 pg (28.0-34.0); Mean Corpuscular Volume 106.3 fl (81-99); Mean Platelet Volume 10.6 fL (7.4-10.4); Monocytes # 0.7 10^3/uL (0.2-0.9); Monocytes % 4.6 %; Neutrophils # 10.96 10^3/uL (1.8-7.7); Neutrophils % 71.9 %; Nucleated Red Blood Cells % 0 %; Platelet Count 325 10^3/cmm (130-400); Red Blood Count 4.28 10^6/uL (4.1-5.3); Red Cell Distribution Width 13.2 % (12.1-15.1); White Blood Count 15.2 10^3/uL (4.0-10.0)
[2021-10-02] MEDS: morphine 4 mg/mL SDV 1 mL IVP ×2 (18:24→19:35)
[2021-10-02 18:54] LABS: HCG, Serum Qual Negative (Negative)
--- NOTE | 2021-10-02 19:25 | CTR_ITS ---
PROCEDURE INFORMATION: Exam: CT Abdomen And Pelvis Without Contrast Exam date and time: 10/02/2021 7:47 PM Age: 36 years old Clinical indication: Abdominal pain; Prior surgery; Surgery date: 6+ months; Surgery type: Leep, and laser lap; Additional info: Epigastric and ruq abdominal pain, n/v TECHNIQUE: Imaging protocol: Computed tomography of the abdomen and pelvis without contrast. Sagittal and coronal reformatted images were created and reviewed. Radiation optimization: All CT scans at this facility use at least one of these dose optimization techniques: automated exposure control; mA and/or kV adjustment per patient size (includes targeted exams where dose is matched to clinical indication); or iterative reconstruction. COMPARISON: 1. CT abdomen pelvis w con* [id number] 03/01/2021 2:03 PM 2. US gall bladder [id number] 10/02/2021 6:03 PM RADIATION DOSE METRICS: Total DLP (mGy-cm): 1556.31 FINDINGS: Lungs: Dependent atelectasis in the visualized lungs. Pleural spaces: No pleural effusion. Heart: Visualized cardiac chambers are unremarkable. Liver: Diffuse, [id number]-fa-wvjbqxnz decreased density in the liver. Findings are consistent with fatty infiltration. The liver is moderately enlarged measuring 22.3 cm in length (series 602, image 37). Gallbladder and bile ducts: The gallbladder is unremarkable. No biliary ductal dilatation. Pancreas: Enlargement of the pancreas. Moderate peripancreatic inflammatory change and free fluid, consistent with moderate acute pancreatitis. Spleen: The spleen is unremarkable. Adrenal glands: The right and left adrenal glands are unremarkable. Kidneys and ureters: The right and left kidneys are unremarkable. The right and left ureters are unremarkable. Stomach and bowel: Secondary inflammatory change of the 2nd and 3rd portions of the duodenum. Scattered diverticula in the colon. No evidence for diverticulitis. No acute abnormality in the small bowel. No acute abnormality in the stomach. Appendix: The appendix is visualized and is unremarkable. No findings to suggest acute appendicitis. Intraperitoneal space: No free intraperitoneal air. No ascites. No loculated fluid collections to suggest an abscess. 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 Incidental note of a circumaortic left renal vein. Lymph nodes: No lymphadenopathy. Urinary bladder: Unremarkable as visualized. Reproductive: The uterus is unremarkable. Dominant follicle in the right ovary measuring 2.3 x 1.5 cm (series 2, image 65). Bones/joints: Degenerative changes in the spine and hips. Soft tissues: No acute abnormality in the extra-abdominal soft tissues. CT/CT abdomen pelvis wo con [id number] IMPRESSION: 1. Changes consistent with moderate acute pancreatitis as described in the report. 2. Moderate hepatomegaly and pwja-fl-kwhegdun fatty infiltration of the liver. 3. Dominant follicle in the right ovary. 4. Scattered diverticula in the colon. No evidence for diverticulitis. 5. Incidental/nonacute findings are listed in the report.
--- NOTE | 2021-10-02 19:36 | ECG_ITS ---
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 Measurements Intervals [place] Rate: 80 P: 6 MO: 177 QRS: 0 QRSD: 100 T: -5 QT: 366 QTc: 425 Interpretive Statements SINUS RHYTHM Compared to ECG 02/14/2021 11:27:47 No significant changes Electronically Signed On 10-02-2021 22:59:39 CDT by Oneil Simon M.D. [email or web address] Therapeuticslaird hospitalRedfin Networkmercy health willard hospital.[employer]/store/OM/[id number]
[2021-10-02 19:49] LABS: Troponin(5th) Baseline 6 ng/L (0-10)
[2021-10-02 19:52] LABS: Alanine Aminotransferase 114 U/L (0-33); Albumin Level 4.9 g/dL (3.5-5.2); Alkaline Phosphatase 107 IU/L (35-105); Anion Gap 20.7 (5-19); Aspartate Amino Transferase 134 U/L (0-32); Blood Urea Nitrogen 10 mg/dL (6-20); Calcium 10.8 mg/dL (8.5-10.5); Carbon Dioxide 21 mmol/L (22-29); Chloride 98 mmol/L (98-107); Globulin 3.2 g/dL (1.3-4.6); Glomerular Filtration Rate 111.9 mL/min (90-130); Glucose 114 mg/dL (65-115); Osmolality Calculated 282 mOsm/kg (285-295); Potassium 3.7 mmol/L (3.5-5.1); Sodium 136 mmol/L (136-145); Total Bilirubin 0.9 mg/dL (0.15-1.2); Total Protein 8.1 g/dL (6.6-8.7)
[2021-10-02 19:59] LABS: Lipase > 300 U/L (13-60)
[2021-10-02 20:16] LABS: Troponin 5 2HR Delta 0 ABS# (0-10)
[2021-10-02] MEDS: HYDROmorphone 1 mg/mL INJ 1 mL 0.5 MG IVP (20:39)
--- NOTE | 2021-10-02 21:07 | P.HP_ITS ---
Providers/Chief Complaint Primary Care Provider: Alyce Noonan MD Chief Complaint: sob, cp History of Present Illness The patient is a 36-year-old female who presented to [facility] abdominal pain which are proximate 4 days prior to hospitalization. She states it has been of gradual onset in the epigastric area with radiation in a bandlike area across her upper abdomen. She describes the pain as sharp, dull, and stabbing. Since the time of onset's been constant. As worst rated 10 out of 10 currently rates 07 out of 10. She took Tylenol at home which did not improve the pain. She indicates that her pain is worse with eating. She states that she takes ibuprofen 800 mg by mouth although on most days of the week. She states that her last bowel movement was on this day of hospitalization. She states she has chronic diarrhea. She denies T8 diarrhea or melena. She missed of bright red blood per rectum. She admits to nausea and vomiting. She denies fever records. She present for further evaluation Review of Systems General: Reports: 10 or more systems reviewed and unremarkable except in HPI and below Medications/Allergies Home Medications Medication Instructions Recorded Confirmed Last Taken Type omeprazole 40 mg capsule,delayed 40 mg PO QAM 02/14/21 10/02/21 10/02/21 History release propranolol 20 mg tablet 40 mg PO BID 02/14/21 10/02/21 10/02/21 History Amadeo-Plex 85 mg PO DAILY 10/02/21 10/02/21 10/02/21 History ibuprofen 200 mg tablet 200 mg PO Q6H PRN 10/02/21 10/02/21 10/02/21 History ondansetron HCl 4 mg tablet 4 mg PO Q6H #20 tab 10/02/21 10/02/21 Unknown Rx Allergies Allergy/AdvReac Type Severity Reaction Status Date / Time codeine Allergy swelling Verified 10/02/21 20:21 Penicillins Allergy rash Verified 10/02/21 20:21 PFSH Acute PFSH: Medical History High risk medication use Hypertension Inflammatory arthritis Iron deficiency Pre-eclampsia Surgical History History of knee surgery History of laparoscopy Family History Mother Thyroid activity decreased Other Cancer Chronic kidney disease (CKD) Diabetes Family history of premature coronary artery disease Hypertension Lupus Rheumatoid arthritis Denies family history of Hyperlipidemia Lung disease Stroke Social History Smoking and tobacco status: current every day smoker Female Reproductive History: Date of last menstrual period: 09/21/21 Vitals/I&O/Wt Last Vital Signs Temp 96.4 F L 10/02/21 17:03 Pulse 83 10/02/21 18:24 Resp 18 10/02/21 20:39 BP 165/107 10/02/21 18:24 Pulse Ox 99 10/02/21 20:39 10/02/21 10/02/21 10/02/21 06:59 14:59 22:59 Intake Total 1000 / 1000 Balance 1000 / 1000 Weight last 48 hrs Weight 72.575 kg Physical Exam Narrative: General: -Alert -No acute distress -No dyspnea -No tachypnea Head: -Atraumatic -Normocephalic Eyes: -Pupils equally round and reactive to light and accommodation -Extraocular muscles intact Neurological: -Cranial nerves II-XII intact Neck: -No jugular venous distention -No thyromegaly -No cervical lymphadenopathy Heart: -Regular rate -Regular rhythm -No murmurs -No gallops -No rubs Lungs: -No wheeze -No rhonchi -No rales ? Abdomen: -Normal bowel sounds in all four quadrants -No rebound -No guarding -No tenderness Extremities: -2/4 pulse in all four extremities -No clubbing -No cyanosis -No edema -No calf tenderness present bilaterally -Negative Katherine?s sign bilaterally Musculoskeletal: -5/5 bilateral upper extremity strength -5/5 bilateral lower extremity strength -Sensorium of bilateral upper extremities are equal and intact -Sensorium of bilateral lower extremities are equal and intact ? Additional Details / Additional Findings / Exceptions / Miscellaneous: Data : 10/02/21 17:56 10/02/21 17:56 A&P Assessment and plan (1) Nausea and vomiting: Status: Acute Plan Acute panic otitis, likely alcohol induced. Nothing by mouth. Will monitor lipase level daily. Check fasting lipid panel. IV normal saline 100 ML's per hour Transaminitis, likely alcohol induced. Will monitor LFTs periodically with CMP along with PT/INR Erythrocytosis. Will monitor hemoglobin level intermittently. IV normal saline 100 ML's per hour History of hyperuricemia Arthritis Treatment iron deficiency with subsequent iron overload. Check serum ferritin, and iron panel Macrocytosis. Check TSH, free T4, B12, folate level GERD. Protonix 40 millions IV twice a day Hyperlipidemia. Fasting lipid panel pending Hypertension Obesity. The patient becomes regarding lifestyle modification Smoker. The patient becomes regarding smoking cessation Hepatic steatosis Diverticulosis Alcohol abuse. Seizure precautions. Case management referral for alcohol rehabilitation. IV when necessary Ativan on a sliding scale Reported bright red blood per rectum. Will monitor hemoglobin level intermittently. Protonix 40 Mill grams IV twice a day. Fecal occult blood pending DVT Proflex is. Bilateral SCD Attestations Medical Necessity Statement*: Anticipate length of stay is greater than 2 minutes 5 treatments of her pancreatitis Coding Level of Care Code Acute Gaming Cage Cashier for Chg Fwd Diagnoses Nausea and vomiting R11.2
[2021-10-02 21:48] LABS: Folate Level 6.1 ng/mL (4.8-37.3)
[2021-10-02 22:02] LABS: Free T4 Free Thyroxine 1.02 ng/dL (0.82-1.77); Thyroid Stimulating Hormone 0.92 uIU/mL (0.27-4.20)
[2021-10-02] MEDS: pantoprazole 40 mg SDV IVP (22:20)
[2021-10-02] MEDS: morphine 4 mg/mL SDV 1 mL 2 MG IVP (22:20)
[2021-10-02] MEDS: sodium chloride 0.9% 1,000 ML 100 ML IV (22:21)
[2021-10-02] MEDS: hyDRALAzine 20 mg/mL INJ 1 mL 10 MG IVP (22:21)
[2021-10-02 23:36] LABS: INR 1.01 (0.8-1.2)
--- NOTE | 2021-10-02 23:36 | ECG_ITS ---
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 Measurements Intervals [place] Rate: 95 P: 55 [place]: 183 QRS: 5 QRSD: 94 T: 8 QT: 359 QTc: 452 Interpretive Statements SINUS RHYTHM Compared to ECG 10/02/2021 20:31:58 No significant changes Electronically Signed On 10-03-2021 22:59:33 CDT by Norma Tucker M.D. [id number]
[2021-10-03] VITALS (11 sets, daily range): BP systolic 133–168; BP diastolic 74–90; PULSE 64–96; RESP 16–20; TEMP 36.2–37.1; O2SAT 94–99
[2021-10-03 01:08] LABS: Ferritin 164 ng/mL (15-150); Iron 85 ug/dL (37-145); Percent Saturation 29.9 % (20-50); Total Iron Binding Capacity 284 mcg/dl; Unsaturated Iron Binding 199 ug/dL (112-347)
[2021-10-03 01:23] LABS: Vitamin B12 1641 pg/mL (232-1245)
[2021-10-03 01:41] LABS: Add Urine Microscopic? NO; Charge for UA Resulting for Rev
[2021-10-03 01:47] LABS: Bilirubin Urine Neg (Negative); Blood Urine Neg (Negative); Glucose Urine UA Norm (Normal); Ketones Urine 1+ (Negative); Leukocyte Esterase Urine Negative (Negative); Nitrate Urine Negative (Negative); Protein Urine Neg (Negative); Urine Appearance Clear (CLEAR); Urine Color Yellow (Yellow); Urobilinogen Urine Norm (Negative); pH Urine 5 (5-7)
[2021-10-03] MEDS: morphine 4 mg/mL SDV 1 mL 2 MG IVP ×5 (02:15→17:45)
[2021-10-03 02:43] LABS: Basophils % 0.3 %; Eosinophils % 0.1 %; Hemoglobin 15.3 g/dL (11.5-15.3); Lymphocytes # 1.1 10^3/uL (0.8-4.8); Lymphocytes % 9.1 %; Mean Corpuscular HGB Conc 34.8 g/dL (30.0-36.0); Mean Corpuscular Hemoglobin 38.1 pg (28.0-34.0); Mean Corpuscular Volume 109.5 fl (81-99); Mean Platelet Volume 10.7 fL (7.4-10.4); Monocytes # 0.2 10^3/uL (0.2-0.9); Monocytes % 1.9 %; Neutrophils # 10.32 10^3/uL (1.8-7.7); Neutrophils % 87.7 %; Nucleated Red Blood Cells % 0 %; Platelet Count 231 10^3/cmm (130-400); Red Blood Count 4.02 10^6/uL (4.1-5.3); Red Cell Distribution Width 13.1 % (12.1-15.1); White Blood Count 11.8 10^3/uL (4.0-10.0)
[2021-10-03 03:03] LABS: Troponin 5 6HR 6.31 ng/L (0-10)
[2021-10-03 03:07] LABS: Alanine Aminotransferase 81 U/L (0-33); Alkaline Phosphatase 88 IU/L (35-105); Aspartate Amino Transferase 83 U/L (0-32); Blood Urea Nitrogen 8 mg/dL (6-20); Calcium 8.7 mg/dL (8.5-10.5); Carbon Dioxide 17 mmol/L (22-29); Chloride 106 mmol/L (98-107); Chol HDL Ratio 8.79 mg/dL (0.0-4.40); Cholesterol 246 mg/dL (0-200); Creatinine Clr Calc Pharmacy 148.4718; Globulin 2.7 g/dL (1.3-4.6); Glomerular Filtration Rate 138.1 mL/min (90-130); Glucose 143 mg/dL (65-115); HDL Cholesterol 28 mg/dL (60-100); LDL Cholesterol Calculated 168 mg/dL (50-129); Osmolality Calculated 287 mOsm/kg (285-295); Sodium 138 mmol/L (136-145); Total Bilirubin 0.7 mg/dL (0.15-1.2); Total Protein 6.7 g/dL (6.6-8.7); Triglycerides 251 mg/dL (0-150)
[2021-10-03 03:24] LABS: Anion Gap 19.1 (5-19); Lipase 1045 U/L (13-60); Potassium 4.1 mmol/L (3.5-5.1)
[2021-10-03 04:17] LABS: Troponin 5 6HR Delta 0.31 ng/L (0-12)
--- NOTE | 2021-10-03 05:47 | NUR.SHIFT ---
Up independently in room. Did have complaint of pain with PRN medications given. Continent and voids via toilet. UA sent to lab. IV infusing NS at 100ml/hr. Patient is NPO. Stool specimen not collected yet due to no bm this shift. Did have hypertension that resolved with prn IV Hydralazine. No s/s of withdrawal noted, no anxiety observed or reported to this RN.
[2021-10-03] MEDS: sodium chloride 0.9% 1,000 ML 100 ML IV ×2 (08:13→17:45)
[2021-10-03] MEDS: pantoprazole 40 mg SDV IVP ×2 (09:54→20:46)
--- NOTE | 2021-10-03 10:37 | PM.PN ---
Subjective Subjective: Patient reports continued epigastric pain. Describes as severe at times. Reports the pain medication does take the edge off but does not make her pain free. She denies any nausea or vomiting overnight. Denies fevers, chills, chest pain, or shortness of breath. Medications: Reviewed: Yes Vitals/I&O/Wt Last Vital Signs Temp 97.4 F L 10/03/21 07:52 Pulse 85 10/03/21 07:52 Resp 16 10/03/21 09:56 BP 143/90 10/03/21 07:52 Pulse Ox 94 10/03/21 07:52 10/02/21 10/03/21 10/03/21 22:59 06:59 14:59 Intake Total 1999 986.667 / 986.667 Output Total 550 / 550 Balance 1999 -550 / 1450 986.667 / 986.667 Weight last 48 hrs Weight 75.523 kg Weight 72.575 kg Physical Exam Narrative: General: Patient is awake and alert. Appears ill. Head:? Normocephalic. Atraumatic. EOM intact. Neck: No JVD. Cardiovascular: RRR. No gallops. No murmurs. No peripheral edema. Lungs: Clear to auscultation, no use of accessory muscles, no crackles or wheezes. Skin: No jaundice. No rashes. Abdomen: Hypoactive bowel sound. Abdomen is tender to palpation in epigastric region. No guarding. Genito Urinary: Posada catheter Extremeties: No cyanosis or clubbing. Musculoskeletal: 5/5 strength, normal range of motion, no swollen or erythematous joints. Neurological: Moves all 4 extremities. No myoclonus. Data : 10/03/21 01:45 10/03/21 01:45 A&P Assessment and plan (1) Pancreatitis, alcoholic, acute: Continue IV fluid resuscitation. Advance to clear liquid diet as tolerated. Status: Acute (2) Alcohol abuse: Will need further counseling on alcohol treatment and resources. Continue to monitor for withdrawal. Ativan PRN. Status: Acute (3) Bright red blood per rectum: No complaints today. Continue PPI. Monitor HGB. Status: Acute (4) Nausea and vomiting: Antiemetics as needed. Discussed slow and controlled PO intake when symptoms improve. Status: Acute (5) Transaminitis: Secondary to ETOH. Continue to monitor. Avoid other hepatotoxins. Status: Acute (6) Abdominal pain: 2/2 acute pancreatitis. IV pain medication as needed. Status: Acute (7) Iron deficiency: Monitor HGB Status: Acute (8) High risk medication use: Status: Acute (9) Pre-eclampsia: Status: Acute (10) Inflammatory arthritis: Status: Acute (11) Tobacco use: Anticipate counseling prior to discharge Status: Acute (12) GERD (gastroesophageal reflux disease): Continue PPI Status: Acute (13) Hyperlipidemia: Lipid panel reviewed. Status: Acute (14) Diverticulosis: Status: Acute Plan DVT ppx: SCD Attestations Medical Necessity Statement*: Requires continued inpatient stay for IV fluids and IV analgesics in the setting of very poor PO intake and severe pain from pancreatitis. Coding Level of Care Code Acute Special Loan Officer for Chg Fwd Diagnoses Nausea and vomiting R11.2 Abdominal pain R10.9 Iron deficiency E61.1 High risk medication use Z79.899 Pre-eclampsia O14.90 Inflammatory arthritis M19.90 Pancreatitis, alcoholic, acute K85.20 Tobacco use Z72.0 Transaminitis R74.01 Alcohol abuse F10.10 GERD (gastroesophageal reflux disease) K21.9 Hyperlipidemia E78.5 Bright red blood per rectum K62.5 Diverticulosis K57.90
[2021-10-03] MEDS: hyDRALAzine 20 mg/mL INJ 1 mL 10 MG IVP (20:44)
[2021-10-03] MEDS: morphine 4 mg/mL SDV 1 mL 3 MG IVP (21:16)
[2021-10-03] MEDS: propranolol 40 mg Tablet PO (21:17)
[2021-10-04] VITALS (12 sets, daily range): BP systolic 125–158; BP diastolic 78–96; PULSE 76–90; RESP 16–20; TEMP 36.5–37.4; O2SAT 96–97
[2021-10-04] MEDS: morphine 4 mg/mL SDV 1 mL 2 MG IVP ×3 (00:19→06:24)
[2021-10-04] MEDS: sodium chloride 0.9% 1,000 ML 100 ML IV ×3 (03:38→20:34)
[2021-10-04 04:57] LABS: Basophils % 0.3 %; Eosinophils # 0.1 10^3/uL (0.0-0.8); Eosinophils % 0.7 %; Hematocrit 36.3 % (37.0-47.0); Hemoglobin 12.6 g/dL (11.5-15.3); Lymphocytes # 1.8 10^3/uL (0.8-4.8); Lymphocytes % 20.7 %; Mean Corpuscular HGB Conc 34.7 g/dL (30.0-36.0); Mean Corpuscular Volume 109.3 fl (81-99); Mean Platelet Volume 10.3 fL (7.4-10.4); Monocytes # 0.5 10^3/uL (0.2-0.9); Monocytes % 5.3 %; Neutrophils # 6.21 10^3/uL (1.8-7.7); Neutrophils % 72.3 %; Nucleated Red Blood Cells % 0 %; Platelet Count 185 10^3/cmm (130-400); Red Blood Count 3.32 10^6/uL (4.1-5.3); Red Cell Distribution Width 13.2 % (12.1-15.1); White Blood Count 8.6 10^3/uL (4.0-10.0)
[2021-10-04 05:27] LABS: Alanine Aminotransferase 48 U/L (0-33); Albumin Level 3.6 g/dL (3.5-5.2); Alkaline Phosphatase 66 IU/L (35-105); Blood Urea Nitrogen 4 mg/dL (6-20); Carbon Dioxide 22 mmol/L (22-29); Chloride 106 mmol/L (98-107); Globulin 2.2 g/dL (1.3-4.6); Glomerular Filtration Rate 178.6 mL/min (90-130); Glucose 106 mg/dL (65-115); Osmolality Calculated 283 mOsm/kg (285-295); Phosphorus 2.9 mg/dL (2.5-4.5); Sodium 138 mmol/L (136-145); Total Bilirubin 0.7 mg/dL (0.15-1.2); Total Protein 5.8 g/dL (6.6-8.7)
[2021-10-04 05:29] LABS: Anion Gap 13.2 (5-19); Aspartate Amino Transferase 39 U/L (0-32); Potassium 3.2 mmol/L (3.5-5.1)
[2021-10-04] MEDS: potassium chloride ER 20 mEq Tablet PO (08:04)
[2021-10-04] MEDS: propranolol 40 mg Tablet PO ×2 (08:05→18:27)
--- NOTE | 2021-10-04 08:09 | PM.PN ---
Subjective Subjective: Patient reports ongoing epigastric pain. She states overnight it was severe to the point that she was crying. An additional dose of morphine was ordered by the payroll administrative assistant. She endorses very poor p.o. intake. She states that she is only been able to take a few sips of water. Reports taking a few sips of Sprite but the pain became too severe after that. She endorses no appetite. Denies nausea, vomiting, chest pain, or shortness of breath. Endorses improved urinary output. Medications: Reviewed: Yes Vitals/I&O/Wt Last Vital Signs Temp 98.5 F 10/04/21 07:58 Pulse 84 10/04/21 07:58 Resp 18 10/04/21 07:58 BP 146/79 10/04/21 07:58 Pulse Ox 96 10/04/21 07:58 10/03/21 10/04/21 10/04/21 22:59 06:59 14:59 Intake Total 1493.333 / 2600.000 1828.333 / 4428.333 Output Total 600 / 600 600 / 1200 Balance 893.333 / 2000.000 1228.333 / 3228.333 Weight last 48 hrs Weight 78.063 kg Weight 75.523 kg Weight 72.575 kg Physical Exam Narrative: General: Patient is awake and alert. Appears fatigued. Head: Normocephalic. Atraumatic. EOM intact. Face is mildly puffy. Neck: No JVD. Cardiovascular: RRR. No gallops. No murmurs. No peripheral edema. Lungs: Clear to auscultation, no use of accessory muscles, no crackles or wheezes. Skin: No jaundice. No rashes. Abdomen: Abdomen is tender mostly in the epigastric region. Bowel sounds are hypoactive. No guarding. Extremeties: No cyanosis or clubbing. Musculoskeletal: No swollen or erythematous joints. Neurological: Moves all 4 extremities. No myoclonus. Data : 10/04/21 04:36 10/04/21 04:36 A&P Assessment and plan (1) Pancreatitis, alcoholic, acute: Patient remains very symptomatic with severe abdominal pain and very poor p.o. intake. She is not responding as quickly to treatment as intended. We will continue IV fluids. Pain poorly controlled overnight. Increasing morphine to 4 mg every 3 hours as needed. Continue supportive care. Status: Acute (2) Bright red blood per rectum: No further complaints today. We will check hemoglobin tomorrow with a.m. labs. Continue PPI. Status: Acute (3) Hypokalemia: Replace potassium. Check renal panel and magnesium in the morning. Status: Acute (4) Alcohol abuse: Case management provided resources, patient reported she does not have a drinking problem. Status: Acute (5) Transaminitis: Alcohol induced. Continue to monitor. Status: Acute (6) Nausea and vomiting: Nausea and vomiting have improved, although patient's had very poor p.o. intake to challenge Status: Acute (7) GERD (gastroesophageal reflux disease): Continue PPI Status: Acute (8) Abdominal pain: Poorly controlled, adjusting analgesia as above Status: Acute (9) Iron deficiency: Hemoglobin goal of 7. Status: Acute (10) Tobacco use: Anticipate smoking cessation counseling prior to discharge Status: Acute (11) Hyperlipidemia: Lipid panel reviewed Status: Acute (12) Inflammatory arthritis: No complaints today. Status: Acute (13) Diverticulosis: Status: Acute Attestations Medical Necessity Statement*: Patient requires ongoing hospitalization due to severely poor p.o. intake requiring IV fluids to maintain hydration and uncontrolled pain requiring IV analgesia Coding Level of Care Code Acute Account Information Clerk for [facility] Fwd Diagnoses Diverticulosis K57.90 Bright red blood per rectum K62.5 Hyperlipidemia E78.5 GERD (gastroesophageal reflux disease) K21.9 Alcohol abuse F10.10 Transaminitis R74.01 Tobacco use Z72.0 Pancreatitis, alcoholic, acute K85.20 Nausea and vomiting R11.2 Abdominal pain R10.9 Iron deficiency E61.1 Inflammatory arthritis M19.90 Hypokalemia E87.6
[2021-10-04] MEDS: pantoprazole 40 mg SDV IVP ×2 (10:30→22:34)
[2021-10-04] MEDS: morphine 4 mg/mL SDV 1 mL IVP ×3 (14:23→22:34)
[2021-10-04] MEDS: hyDRALAzine 20 mg/mL INJ 1 mL 10 MG IVP (23:54)
[2021-10-05] VITALS (7 sets, daily range): BP systolic 136–185; BP diastolic 80–109; PULSE 68–89; RESP 16–20; TEMP 36.3–37.2; O2SAT 95–97
[2021-10-05] MEDS: acetaminophen 325 mg Tablet 650 MG PO ×2 (00:19→20:44)
[2021-10-05] MEDS: sodium chloride 0.9% 1,000 ML 100 ML IV (03:00)
[2021-10-05 06:05] LABS: Alanine Aminotransferase 35 U/L (0-33); Albumin Level 3.3 g/dL (3.5-5.2); Alkaline Phosphatase 66 IU/L (35-105); Anion Gap 14.2 (5-19); Aspartate Amino Transferase 31 U/L (0-32); Blood Urea Nitrogen 2 mg/dL (6-20); Calcium 7.7 mg/dL (8.5-10.5); Carbon Dioxide 22 mmol/L (22-29); Chloride 104 mmol/L (98-107); Globulin 2.4 g/dL (1.3-4.6); Glucose 96 mg/dL (65-115); Magnesium 1.4 mg/dL (1.7-2.3); Phosphorus 3.1 mg/dL (2.5-4.5); Potassium 3.2 mmol/L (3.5-5.1); Sodium 137 mmol/L (136-145); Total Bilirubin 0.7 mg/dL (0.15-1.2); Total Protein 5.7 g/dL (6.6-8.7)
[2021-10-05] MEDS: propranolol 40 mg Tablet PO ×2 (08:46→17:26)
[2021-10-05] MEDS: pantoprazole 40 mg SDV IVP (08:46)
--- NOTE | 2021-10-05 09:10 | PC.CHAP ---
Pastoral Care Encounter/Spiritual Assessment Type of Contact [] Declined promotional model visit [] Patient/Family/Request visit [] Outpatient visit [] Follow-up visit [] Physician referral [] Code/Alert [x] Routine visit [] Staff referral [] Actively dying [] Patient sleeping [] Family support [] [] Out of room [] Palliative care [] [] Receiving care in room [] Pre-surgical visit [] Trauma [] Long length of stay [] ICU visit [] Other: Relational/Emotional Strength [x] Patient feels connected with others/family/visitors/staff [] Distress [] Loneliness/isolation [] Abandonment Spirituality of Patient [x] Person of [place] [] Attends Buddhism of their [place] [x] Believes in Prayer [] Reads Bible or Mandaeism materials [] There are Spiritual issues to be addressed Resin Painter Interventions [x] Prayer [x] Active listening [x] Non-anxious presence [] Spiritual/emotional support [] Crisis/trauma care [] Spiritual counseling [] Bereavement support [] Provided bereavement packet [] Provided Bible/devotional materials [] Provided toy/stuffed animal, coloring book to patient or family member [] Provided Communion [] Anointing/Wann [] Salvation x[x]x Completed spiritual assessment [] Other: Impact on Illness or Injury [] Angry [] Fearful [] Anxious [] Often cries [] Exhaustion [] Unable to work [] Unable to attend jew [] Unable to walk/stand [] Unable to read [] Unable to drive [] Unable to eat/drink [] Unable to sleep [] Unable to be with family [] Patient intubated [] Other: Summary Time spent with patient 10 min
--- NOTE | 2021-10-05 10:08 | P.PN_ITS ---
Subjective Subjective: Patient endorses a severe headache this morning. She states that it started overnight. She attributes to the morphine. She says that she quit asking for the morphine but now she is having worsening abdominal pain. Describes abdominal pain about a 7 out of 10. Reports it is still in the epigas tric region. Reports very little p.o. intake which did exacerbate her abdominal pain at that time. Complains of several episodes of diarrhea overnight. Endorses generalized malaise. Reports her blood pressure was really high overnight which had her very worried. Denies fevers, chills, chest pain, or shortness of breath. Endorses strong desire to get better. Reports she has 4 kids at home that her is having to take care of the moment. We discussed clinical milestones that she needs to make before she is safe to be discharged home and she is in agreement with care plan. Medications: Reviewed: Yes Vitals/I&O/Wt Last Vital Signs Temp 97.6 F 10/05/21 07:33 Pulse 88 10/05/21 07:33 Resp 16 10/05/21 07:33 BP 147/96 10/05/21 07:33 Pulse Ox 96 10/05/21 07:33 10/04/21 10/05/21 10/05/21 22:59 06:59 14:59 Intake Total 718.333 / 0079.506 1101 / 3198.333 Balance 718.333 / 0588.657 3994 / 3198.333 Weight last 48 hrs Weight 80.104 kg Weight 78.063 kg Physical Exam 2 Narrative: General: Patient is awake. Appears very uncomfortable. Head: Normocephalic. Atraumatic. EOM intact. Mild facial puffiness present. Neck: No JVD. Cardiovascular: RRR. No gallops. Hypertensive. No murmurs. No peripheral edema. Lungs: Breath sounds are slightly diminished bilateral bases, no use of accessory muscles, no crackles or wheezes. Skin: No jaundice. No rashes. Abdomen: Hypoactive bowel sounds. There is more tenderness to palpation in the epigastric region worse than yesterday's exam. Extremeties: No cyanosis or clubbing. Musculoskeletal: No swollen or erythematous joints. Neurological: Moves all 4 extremities. No myoclonus. Data : 10/04/21 04:36 10/05/21 05:30 A&P Assessment and plan (1) Pancreatitis, alcoholic, acute: Patient is not responding to treatment as intended. She continues to have very poor p.o. intake which is expected exacerbates her pain. We will rotate pain medication for morphine to hydromorphone. If she tolerates p.o. intake, counseled her to try oxycodone instead IV pain meds pending her symptoms. She is not tolerated the clear liquid diet well. We will try full liquid diet instead today and see if she does better with that consistency. Due to poor p.o. intake, we will continue her on IV fluids. Status: Acute (2) Headache: Suspect this is secondary to her pain and markedly elevated blood pressure. IV Toradol ordered once. Monitor for response. Status: Acute (3) Bright red blood per rectum: No further complaints of bright red blood per rectum since admission. Her hemoglobin did downtrend initially. We will get a repeat hemoglobin tomorrow. Continue with PPI. Status: Acute (4) Hypokalemia: Potassium 3.2. This is likely secondary to diarrhea loss and poor p.o. intake. Will replete potassium. Status: Acute (5) Transaminitis: Alcohol induced. Improving. Status: Acute (6) Hypertension: Her hypertension was uncontrolled overnight. She received IV hydralazine. S uspect elevated blood pressure is in large part due to her uncontrolled pain. Just analgesia. We will continue with the as needed hydralazine for markedly elevated blood pressures. Status: Acute (7) Abdominal pain: Abdominal pain is worsening. This is likely secondary to her not obtaining adequate analgesia due to her concern over morphine. Rotating opiates as noted above. Status: Acute (8) Nausea and vomiting: Seems to be improved. She is challenged it very little with p.o. intake. We will see how she does with the diet today. Status: Acute (9) Tobacco use: Will group therapy counselor on smoking cessation prior to discharge Status: Acute (10) GERD (gastroesophageal reflux disease): Continue PPI. Status: Acute (11) Hyperlipidemia: Lipid panel has been reviewed. Given recent insult to the liver we will hold off on any statin therapy. Ultimately plan to defer to her primary care provider. Status: Acute (12) Inflammatory arthritis: Endorsing generalized malaise, unclear if it is associated with her inflammatory arthritis history. Adjusting analgesia. Status: Acute (13) Iron deficiency: Status: Acute Attestations Medical Necessity Statement*: Patient requires continued hospitalization for uncontrolled symptoms, poor p.o. intake, IV analgesia, and IV fluids. Coding Level of Care Code Acute Utility Arborist for g Fwd Diagnoses Pancreatitis, alcoholic, acute K85.20 Tobacco use Z72.0 Transaminitis R74.01 GERD (gastroesophageal reflux disease) K21.9 Headache R51.9 Hypokalemia E87.6 Bright red blood per rectum K62.5 Hyperlipidemia E78.5 Abdominal pain R10.9 Nausea and vomiting R11.2 Iron deficiency E61.1 Inflammatory arthritis M19.90 Hypertension I10
[2021-10-05] MEDS: ketorolac 30 mg/mL INJ 15 MG IVP (10:23)
[2021-10-05] MEDS: potassium chloride ER 20 mEq Tablet 40 MEQ PO (12:05)
[2021-10-05] MEDS: pantoprazole DR 40 mg Tablet PO (20:44)
[2021-10-06] VITALS: BP 163/100; PULSE 62; RESP 18; TEMP 37; O2SAT 98
[2021-10-06 04:00] VITALS: BP 173/91; PULSE 82; RESP 18; TEMP 36.9; O2SAT 97
[2021-10-06 04:56] LABS: Basophils % 0.4 %; Eosinophils # 0.2 10^3/uL (0.0-0.8); Hematocrit 34.7 % (37.0-47.0); Hemoglobin 12.1 g/dL (11.5-15.3); Lymphocytes # 1.8 10^3/uL (0.8-4.8); Lymphocytes % 27.4 %; Mean Corpuscular HGB Conc 34.9 g/dL (30.0-36.0); Mean Corpuscular Hemoglobin 37.5 pg (28.0-34.0); Mean Corpuscular Volume 107.4 fl (81-99); Mean Platelet Volume 10.2 fL (7.4-10.4); Monocytes # 0.4 10^3/uL (0.2-0.9); Monocytes % 5.7 %; Neutrophils # 4.22 10^3/uL (1.8-7.7); Neutrophils % 63.1 %; Nucleated Red Blood Cells % 0 %; Platelet Count 183 10^3/cmm (130-400); Red Blood Count 3.23 10^6/uL (4.1-5.3); Red Cell Distribution Width 12.6 % (12.1-15.1); White Blood Count 6.7 10^3/uL (4.0-10.0)
[2021-10-06 05:24] LABS: Albumin Level 3.5 g/dL (3.5-5.2); Anion Gap 16.2 (5-19); Blood Urea Nitrogen 3 mg/dL (6-20); Calcium 9.1 mg/dL (8.5-10.5); Carbon Dioxide 22 mmol/L (22-29); Chloride 104 mmol/L (98-107); Glomerular Filtration Rate 178.6 mL/min (90-130); Glucose 97 mg/dL (65-115); Phosphorus 4.2 mg/dL (2.5-4.5); Potassium 3.2 mmol/L (3.5-5.1); Sodium 139 mmol/L (136-145)
[2021-10-06 07:06] VITALS: BP 160/90; PULSE 83; RESP 16; TEMP 36.9; O2SAT 95
--- NOTE | 2021-10-06 08:29 | P.DS_ITS ---
Discharge Providers Date of Admission: 10/02/21 21:02 Date of Discharge: October 06, 2021 Attending Provider at Admission: Marcos Mcelroy DO Attending Provider at Discharge: Flo Haskins MD Primary Care Provider: Alyce Noonan MD Diagnoses at Discharge Discharge Diagnosis (1) Pancreatitis, alcoholic, acute: Status: Acute (2) Headache: Status: Acute (3) Bright red blood per rectum: Status: Acute (4) Hypokalemia: Status: Acute (5) Transaminitis: Status: Acute (6) Hypertension: Status: Acute (7) Abdominal pain: Status: Acute (8) Nausea and vomiting: Status: Acute (9) Tobacco use: Status: Acute (10) GERD (gastroesophageal reflux disease): Status: Acute (11) Hyperlipidemia: Status: Acute (12) Inflammatory arthritis: Status: Acute (13) Iron deficiency: Status: Acute Reason for Visit Reason for Visit: sob, cp Hospital Course Hospital Course Sadaf Horner is a 36-year-old female with a past medical history significant for hypertension, inflammatory arthritis, iron deficiency, tobacco use disorder and preeclampsia who presented with epigastric abdominal pain x4 days, found to have acute alcoholic pancreatitis and alcohol induced transaminitis. She was initially treated with bowel rest, IV fluid resuscitation, and IV analgesia. With treatment, patient eventually began tolerating p.o. intake as abdominal pain improved. Hospital course was complicated by uncontrolled hypertension requiring hydralazine. Hospital course further complicated by severe headaches and hypokalemia. Electrolytes were replaced as needed. There were initial reports of bright red blood per rectum on presentation. No further complaints during hospitalization hemoglobin stayed stable. She is to continue her PPI. She is to follow-up with her primary care provider in 4 to 7 days to monitor progress. On day of discharge, smoking cessation was discussed. Patient reports being a current every day smoker. She states over the last several months she has tried to cut down on her smoking. She reports that she goes about 1 pack every 3 days now. We discussed that she had not smoked or had any nicotine since her hospitalization. She identified this is a good time to possibly try to quit smoking again. We discussed her prior attempts to quit smoking. She is quit smoking twice before when she found out she was . Reports those times she quit cold turkey. She states she has been talking to her partner who was offered to get the cigarettes out of the home before she gets home this time. We discussed the need for her to change up her routine at home in order to be successful cessation. She does note concern over being a [id number] mother which she feels may make cessation more challenging. Discussed harmful effects on her health and she is in agreement. Encouraged cessation. Smoking cessation counseling was provided for greater than 10 minutes. Physical Exam Narrative: General: Patient is awake and alert. Head: Normocephalic. Atraumatic. EOM intact. Neck: No JVD. Cardiovascular: RRR. No gallops. No murmurs. No peripheral edema. Lungs: Clear to auscultation, no use of accessory muscles, no crackles or wheezes. Skin: No jaundice. No rashes. Abdomen: Normal bowel sounds. Abdomen is soft. There are some mild tenderness to palpation in the epigastric region improved from prior exams. Extremeties: No cyanosis or clubbing. Musculoskeletal: No swollen or erythematous joints. Neurological: Moves all 4 extremities. No myoclonus. Discharge Data Studies Completed and Pending Completed Studies During Hospitalization Category Date Time Status CT abdomen pelvis wo con [id number] Urgent Cat Scan 10/02/21 19:25 Completed US gall bladder [id number] Urgent Ultrasound 10/02/21 17:36 Completed None Radiology Impressions Gallbladder Ultrasound 10/02/21 17:36 IMPRESSION: Moderate hepatomegaly and moderate fatty infiltration of the liver. Abdomen/Pelvis CT 10/02/21 19:25 IMPRESSION: 1. Changes consistent with moderate acute pancreatitis as described in the report. 2. Moderate hepatomegaly and [id number] fatty infiltration of the liver. 3. Dominant follicle in the right ovary. 4. Scattered diverticula in the colon. No evidence for diverticulitis. 5. Incidental/nonacute findings are listed in the report. Laboratory Results WBC 6.7 10^3/uL (4.0-10.0) 10/06/21 04:48 RBC 3.23 10^6/uL (4.1-5.3) L 10/06/21 04:48 Hgb 12.1 g/dL (11.5-15.3) 10/06/21 04:48 Hct 34.7 % (37.0-47.0) L 10/06/21 04:48 MCV 107.4 fl (81-99) H 10/06/21 04:48 MCH 37.5 pg (28.0-34.0) H 10/06/21 04:48 MCHC 34.9 g/dL (30.0-36.0) 10/06/21 04:48 RDW 12.6 % (12.1-15.1) 10/06/21 04:48 Plt Count 183 10^3/cmm (130-400) 10/06/21 04:48 MPV 10.2 fL (7.4-10.4) 10/06/21 04:48 Neut % (Auto) 63.1 % 10/06/21 04:48 Lymph % (Auto) 27.4 % 10/06/21 04:48 [place] % (Auto) 5.7 % 10/06/21 04:48 Eos % (Auto) 3.0 % 10/06/21 04:48 Baso % (Auto) 0.4 % 10/06/21 04:48 Neut # (Auto) 4.22 10^3/uL (1.8-7.7) 10/06/21 04:48 Lymph # (Auto) 1.8 10^3/uL (0.8-4.8) 10/06/21 04:48 [place] # (Auto) 0.4 10^3/uL (0.2-0.9) 10/06/21 04:48 Eos # (Auto) 0.2 10^3/uL (0.0-0.8) 10/06/21 04:48 Baso # (Auto) 0.0 10^3/uL (0.0-0.1) 10/06/21 04:48 Nucleated RBC % (auto) 0 % 10/06/21 04:48 Nucleated RBCs # 0.0 /100WBC 10/06/21 04:48 PT 13.60 SECONDS (12.1-14.9) 10/02/21 22:36 INR 1.01 (0.8-1.2) 10/02/21 22:36 Sodium 139 mmol/L (136-145) 10/06/21 04:48 Potassium 3.2 mmol/L (3.5-5.1) L 10/06/21 04:48 Chloride 104 mmol/L (98-107) 10/06/21 04:48 Carbon Dioxide 22 mmol/L (22-29) 10/06/21 04:48 Anion Gap 16.2 (5-19) 10/06/21 04:48 BUN 3 mg/dL (6-20) L 10/06/21 04:48 Creatinine 0.4 mg/dL (0.5-0.9) L 10/06/21 04:48 GFR Calculation 178.6 mL/min (90-130) H 10/06/21 04:48 Glucose 97 mg/dL (65-115) 10/06/21 04:48 Calculated Osmolality 283 mOsm/kg (285-295) L 10/04/21 04:36 Calcium 9.1 mg/dL (8.5-10.5) 10/06/21 04:48 Phosphorus 4.2 mg/dL (2.5-4.5) 10/06/21 04:48 Magnesium 1.4 mg/dL (1.7-2.3) L 10/05/21 05:30 Iron 85 ug/dL (37-145) 10/02/21 21:05 TIBC 284 mcg/dl 10/02/21 21:05 % Saturation 29.9 % (20-50) 10/02/21 21:05 Unsat Iron Binding 199 ug/dL (112-347) 10/02/21 21:05 Ferritin 164 ng/mL (15-150) H 10/02/21 21:05 Total Bilirubin 0.7 mg/dL (0.15-1.2) 10/05/21 05:30 Direct Bilirubin 0.40 mg/dL (0.00-0.30) H 10/05/21 05:30 AST 31 U/L (0-32) 10/05/21 05:30 ALT 35 U/L (0-33) H 10/05/21 05:30 Alkaline Phosphatase 66 IU/L (35-105) 10/05/21 05:30 Troponin T Baseline 6 ng/L (0-10) 10/02/21 17:56 Troponin T 120 Minute 6.00 ng/L (0-10) 10/02/21 19:32 Delta Troponin T 0 ABS# (0-10) 10/02/21 19:32 Troponin T Hi Sens 6Hr 6.31 ng/L (0-10) 10/03/21 01:45 Troponin T Hi Sens 6Hr Delta 0.31 ng/L (0-12) 10/03/21 01:45 Total Protein 5.7 g/dL (6.6-8.7) L 10/05/21 05:30 Albumin 3.5 g/dL (3.5-5.2) 10/06/21 04:48 Globulin 2.4 g/dL (1.3-4.6) 10/05/21 05:30 Triglycerides 251 mg/dL (0-150) H 10/03/21 01:45 Cholesterol 246 mg/dL (0-200) H 10/03/21 01:45 LDL Cholesterol, Calc 168 mg/dL (50-129) H 10/03/21 01:45 HDL Cholesterol 28 mg/dL (60-100) L 10/03/21 01:45 LDL/HDL Ratio 6.00 RATIO (0.00-3.22) H 10/03/21 01:45 Cholesterol/HDL Ratio 8.79 mg/dL (0.0-4.40) H 10/03/21 01:45 Lipase 1045 U/L (13-60) H 10/03/21 01:45 Vitamin B12 1641 pg/mL (232-1245) H 10/02/21 21:05 Folate 6.1 ng/mL (4.8-37.3) 10/02/21 21:05 TSH 0.92 uIU/mL (0.27-4.20) 10/02/21 21:05 Free T4 1.02 ng/dL (0.82-1.77) 10/02/21 21:05 HCG, Qual Negative (Negative) 10/02/21 17:56 Urine Color Yellow (Yellow) 10/03/21 01:30 Urine Appearance Clear (CLEAR) 10/03/21 01:30 Urine pH 5 (5-7) 10/03/21 01:30 Ur Specific [place] 1.010 (1.005-1.030) 10/03/21 01:30 Urine Protein Neg (Negative) 10/03/21 01:30 Urine Glucose (UA) Norm (Normal) 10/03/21 01:30 Urine Ketones 1+ (Negative) H 10/03/21 01:30 Urine Blood Neg (Negative) 10/03/21 01:30 Urine Nitrate Negative (Negative) 10/03/21 01:30 Urine Bilirubin Neg (Negative) 10/03/21 01:30 Urine Urobilinogen Norm mg/dL (Negative) 10/03/21 01:30 Ur Leukocyte Esterase Negative (Negative) 10/03/21 01:30 Procedures Performed None Vitals Last Vital Signs Temp 98.5 F 10/06/21 07:06 Pulse 83 10/06/21 07:06 Resp 16 10/06/21 07:06 BP 160/90 10/06/21 07:06 Pulse Ox 95 10/06/21 07:06 Discharge Plan Discharge Patient Disposition: Home Condition: Stable Prescriptions: New oxycodone 5 mg Tablet 5 mg PO Q4H PRN (Reason: Moderate Pain) 7 Days Qty: 15 0RF Continued ondansetron HCl 4 mg tablet 4 mg PO Q6H Qty: 20 0RF omeprazole 40 mg capsule,delayed release(DR/EC) 40 mg PO QAM 0RF propranolol 20 mg tablet 40 mg PO BID 0RF ibuprofen 200 mg Tablet 200 mg PO Q6H PRN (Reason: Pain) 0RF [place] 85 mg PO DAILY 0RF Discharge Orders: Discharge Order (Routine); Ordered 10/06/21 Ordered By: Flo Haskins Referrals: Alyce Noonan MD [Primary Care Provider] - 4-7 days (Please call Friday morning to schedule a hospital follow-up appointment. ) Discharge Diet: Advance as tolerated Discharge Activity: Increase activity as tolerated Patient Instructions: Oxycodone, Rapid Release (By mouth), Pancreatitis (GEN), Opioid Safety Discharge Attestations Time Spent in Discharge Care*: greater than 30 min Time Spent in Smoking Cessation: Greater than 10 minutes was spent on smoking cessation counseling on day of discharge Quality Metrics Clinical Quality Measures [ No reported AMI, CVA or VTE this stay] Coding Level of Care Code Acute Chg FW DC note Diagnoses Pancreatitis, alcoholic, acute K85.20 Headache R51.9 Bright red blood per rectum K62.5 Hypokalemia E87.6 Transaminitis R74.01 Hypertension I10 Abdominal pain R10.9 Nausea and vomiting R11.2 Tobacco use Z72.0 GERD (gastroesophageal reflux disease) K21.9 Hyperlipidemia E78.5 Inflammatory arthritis M19.90 Iron deficiency E61.1
[2021-10-06 08:38] VITALS: BP 160/90; PULSE 83; RESP 16; TEMP 36.9; O2SAT 95
[2021-10-06] MEDS: pantoprazole DR 40 mg Tablet PO (09:26)
[2021-10-06] MEDS: propranolol 40 mg Tablet PO (09:26)
== END 2021-10-06 09:55 | disposition home or self-care (01) | DRG 439 ==
LOC: ER 20:39 → MEDSURG 21:13
PROVIDERS: Admitting Provider Internal Medicine; Emergency Provider Physician Assistant; PCP Family Medicine; Visit Provider Internal Medicine
DX: K85.20 Alcohol induced acute pancreatitis without necrosis or infection (principal); K62.5 Hemorrhage of anus and rectum; D75.1 Secondary polycythemia; E61.1 Iron deficiency; D75.89 Other specified diseases of blood and blood-forming organs; K21.9 Gastro-esophageal reflux disease without esophagitis; E78.5 Hyperlipidemia, unspecified; I10 Essential (primary) hypertension; K76.0 Fatty (change of) liver, not elsewhere classified; K57.90 Diverticulosis of intestine, part unspecified, without perforation or abscess without bleeding; F10.10 Alcohol abuse, uncomplicated; M19.90 Unspecified osteoarthritis, unspecified site; E87.6 Hypokalemia; E66.9 Obesity, unspecified; Z68.30 Body mass index [BMI] 30.0-30.9, adult; Z79.899 Other long term (current) drug therapy
CPT/HCPCS: 36415; 74176; 76705; 80053; 80061; 80069; 80076; 81003; 82607; 82728; 82746; 83540; 83550; 83690; 83735; 84100; 84439; 84443; 84484; 84703; 85025; 85610; 86140; 93005; 96374; 96375; 96376; 99285; C9113; J0360; J1170; J1200; J1885; J2270; J2405; J2920; J7030

== ENCOUNTER → 2021-10-31 15:27 | Outpatient (BNVA) | payer OTHER, SELFPAY | PROVIDERS: Visit Provider Family Medicine | DX: I10 Essential (primary) hypertension (principal); K57.90 Diverticulosis of intestine, part unspecified, without perforation or abscess without bleeding; E78.5 Hyperlipidemia, unspecified; K21.9 Gastro-esophageal reflux disease without esophagitis; R74.01 Elevation of levels of liver transaminase levels; D75.89 Other specified diseases of blood and blood-forming organs; F17.218 Nicotine dependence, cigarettes, with other nicotine-induced disorders | CPT/HCPCS: 80053; 82607; 84439; 84443; 85025 ==

== ENCOUNTER → 2022-07-31 14:54 | Outpatient (BNVA) | payer OTHER, SELFPAY | PROVIDERS: PCP Family Medicine; Visit Provider Family Medicine | DX: N39.0 Urinary tract infection, site not specified (principal); I10 Essential (primary) hypertension; E87.6 Hypokalemia; E78.2 Mixed hyperlipidemia; R74.01 Elevation of levels of liver transaminase levels | CPT/HCPCS: 80053; 80061; 81000; 82607; 82746; 83721; 83735; 84439; 84443; 85025 ==

== ENCOUNTER 2022-12-04 20:36 | Inpatient (IN) | payer OTHER, SELFPAY ==
[2022-12-04 20:44] VITALS: BP 168/111; PULSE 83; RESP 16; TEMP 36.6; O2SAT 100
[2022-12-04 21:22] LABS: Basophils # 0.1 10^3/uL (0.0-0.1); Basophils % 0.7 %; Eosinophils # 0.4 10^3/uL (0.0-0.8); Eosinophils % 2.8 %; Hematocrit 42.1 % (37.0-47.0); Hemoglobin 14.9 g/dL (11.5-15.3); Lymphocytes # 3.1 10^3/uL (0.8-4.8); Lymphocytes % 20.6 %; Mean Corpuscular HGB Conc 35.4 g/dL (30.0-36.0); Mean Corpuscular Hemoglobin 39.6 pg (28.0-34.0); Mean Platelet Volume 10.1 fL (7.4-10.4); Monocytes # 0.8 10^3/uL (0.2-0.9); Monocytes % 5.5 %; Neutrophils # 10.62 10^3/uL (1.8-7.7); Neutrophils % 69.9 %; Nucleated Red Blood Cells % 0 %; Platelet Count 251 10^3/cmm (130-400); Red Blood Count 3.76 10^6/uL (4.1-5.3); Red Cell Distribution Width 12.8 % (12.1-15.1); White Blood Count 15.2 10^3/uL (4.0-10.0)
[2022-12-04 21:42] LABS: Alanine Aminotransferase 66 U/L (0-33); Albumin Level 4.5 g/dL (3.5-5.2); Alkaline Phosphatase 80 U/L (35-105); Anion Gap 15.9 (5-19); Aspartate Amino Transferase 65 U/L (0-32); Blood Urea Nitrogen 9 mg/dL (6-20); Calcium 9.4 mg/dL (8.5-10.5); Carbon Dioxide 22 mmol/L (22-29); Chloride 104 mmol/L (98-107); Globulin 2.5 g/dL (1.3-4.6); Glomerular Filtration Rate 61.7 mL/min (90-130); Glucose 102 mg/dL (65-115); Lipase 155 U/L (13-60); Osmolality Calculated 285 mOsm/kg (285-295); Potassium 3.9 mmol/L (3.5-5.1); Sodium 138 mmol/L (136-145); Total Bilirubin 0.5 mg/dL (0.15-1.2)
[2022-12-04] MEDS: pantoprazole 40 mg SDV IVP (21:59)
[2022-12-04 22:00] VITALS: RESP 16
[2022-12-04] MEDS: sodium chloride 0.9% 1,000 ML 999 ML IV (22:00)
[2022-12-04] MEDS: morphine 4 mg/mL SDV 1 mL IVP (22:00)
[2022-12-04 22:01] VITALS: BP 173/99; PULSE 87; RESP 16; O2SAT 100
--- NOTE | 2022-12-04 22:24 | W.ED.ABDPA2 ---
HPI - Abdominal Pain General: Chief Complaint: Abdominal Pain Stated Complaint: abd pain Time Seen by Provider: 12/04/22 21:07 History of Present Illness: 37-year-old female with history of alcohol induced pancreatitis presented emergency room today with abdominal pain, nausea vomiting since Friday. Patient further reviews that she had a lot of alcohol on Friday while celebrating her wedding anniversary. Patient described the pain as sharp sensation across her abdomen with severity of 7 out of 10. Patient reported nausea but no vomiting at the moment. No fever, chills, vomiting blood or coughing up blood. Bloody stool or dark stool. No recent foreign travel or sick contacts. Associated Symptoms: Reports nausea; Denies belching, bloating, coffee ground emesis, constipation, GI cramping, diarrhea, heartburn, hematemesis and vomiting Related Data: Date of Last Menstrual Period: 11/23/22 Review of Systems General: Reports: 10 or more systems reviewed and unremarkable except in HPI and below GI: Reports: abdominal pain and nausea; Denies: vomiting, hematemesis, coffee ground emesis, dysphagia, heartburn, early satiety, diarrhea, constipation, bloating, GI cramping or belching PFSH ED PFSH: Medical History High risk medication use Hypertension Inflammatory arthritis Iron deficiency Pancreatitis, alcoholic, acute Pre-eclampsia Surgical History History of knee surgery History of laparoscopy Family History Mother Thyroid activity decreased Other Cancer Chronic kidney disease (CKD) Diabetes Family history of premature coronary artery disease Hypertension Lupus Rheumatoid arthritis Denies family history of Hyperlipidemia Lung disease Stroke Social History Smoking and tobacco status: current every day smoker Alcohol intake: current Substance/Drug Use: never Female Reproductive History: Date of last menstrual period: 11/23/22 Physical Exam Const: COMMON NORMALS: no acute distress, average body habitus, patient oriented x3, no limitations, healthy appearing, alert and well nourished GI: COMMON NORMALS: Soft to palpation; negative for No hepatosplenomegaly present and negative for no masses INSPECTION: No Anasarca, Yes abdominal distension, No incision, No central obesity, No scaphoid and No Fluid wave present AUSCULTATION: Yes normoactive bowel sounds PALPATION: Yes Soft to palpation and No No hepatosplenomegaly present PERCUSSION: normal to percussion, no fluid wave and no tympanic to percussion : COMMON NORMALS: Yes no CVA tenderness BLADDER/KIDNEY EXAM: Yes no CVA tenderness Back/Pelvis: COMMON NORMALS: no CVA tenderness Extremity: COMMON NORMALS: normal to inspection, full ROM, capillary refill normal, no joint enlargement, no clubbing, cyanosis or edema, no calf tenderness and no pedal edema Neuro: COMMON NORMALS: patient oriented x3 SENSORIUM/ORIENTATION: Yes alert Skin: COMMON NORMALS: no rashes or lesions noted, no wounds, turgor normal, no jaundice, no petechiae and no mottling GENERAL SKIN EXAM: no rashes or lesions noted and turgor normal Course ED course: Patient remained stable without acute distress. Consultations: Consultation #1: Discussed patient with the hospitalist GI agreed with admission but request for CT scan of the abdomen pelvis Vital Signs: Vital signs: Vital Signs Temperature 97.9 F 12/04/22 20:44 Pulse Rate 87 12/04/22 22:01 Respiratory Rate 16 12/04/22 22:01 Blood Pressure 173/99 12/04/22 22:01 Pulse Oximetry 100 12/04/22 22:01 Oxygen Delivery Me thod Room Air 12/04/22 20:44 MDM - Abdominal Pain Medical Decision Making Patient was made comfortable emergency room. She was given IV fluid and IV pain medication. Scan was ordered. Will be admitted for further evaluation and treatment. Lab Data 12/04/22 21:14 12/04/22 21:14 Labs/Radiology: Laboratory Results WBC 15.2 10^3/uL (4.0-10.0) H 12/04/22 21:14 RBC 3.76 10^6/uL (4.1-5.3) L 12/04/22 21:14 Hgb 14.9 g/dL (11.5-15.3) 12/04/22 21:14 Hct 42.1 % (37.0-47.0) 12/04/22 21:14 MCV 112.0 fl (81-99) H 12/04/22 21:14 MCH 39.6 pg (28.0-34.0) H 12/04/22 21:14 MCHC 35.4 g/dL (30.0-36.0) 12/04/22 21:14 RDW 12.8 % (12.1-15.1) 12/04/22 21:14 Plt Count 251 10^3/cmm (130-400) 12/04/22 21:14 MPV 10.1 fL (7.4-10.4) 12/04/22 21:14 Neut % (Auto) 69.9 % 12/04/22 21:14 Lymph % (Auto) 20.6 % 12/04/22 21:14 [place] % (Auto) 5.5 % 12/04/22 21:14 Eos % (Auto) 2.8 % 12/04/22 21:14 Baso % (Auto) 0.7 % 12/04/22 21:14 Neut # (Auto) 10.62 10^3/uL (1.8-7.7) H 12/04/22 21:14 Lymph # (Auto) 3.1 10^3/uL (0.8-4.8) 12/04/22 21:14 [place] # (Auto) 0.8 10^3/uL (0.2-0.9) 12/04/22 21:14 Eos # (Auto) 0.4 10^3/uL (0.0-0.8) 12/04/22 21:14 Baso # (Auto) 0.1 10^3/uL (0.0-0.1) 12/04/22 21:14 Nucleated RBC % (auto) 0 % 12/04/22 21:14 Nucleated RBCs # 0.0 /100WBC 12/04/22 21:14 Sodium 138 mmol/L (136-145) 12/04/22 21:14 Potassium 3.9 mmol/L (3.5-5.1) 12/04/22 21:14 Chloride 104 mmol/L (98-107) 12/04/22 21:14 Carbon Dioxide 22 mmol/L (22-29) 12/04/22 21:14 Anion Gap 15.9 (5-19) 12/04/22 21:14 BUN 9 mg/dL (6-20) 12/04/22 21:14 Creatinine 1.0 mg/dL (0.5-0.9) H 12/04/22 21:14 GFR Calculation 61.7 mL/min (90-130) L 12/04/22 21:14 Glucose 102 mg/dL (65-115) 12/04/22 21:14 Calculated Osmolality 285 mOsm/kg (285-295) 12/04/22 21:14 Calcium 9.4 mg/dL (8.5-10.5) 12/04/22 21:14 Total Bilirubin 0.5 mg/dL (0.15-1.2) 12/04/22 21:14 AST 65 U/L (0-32) H 12/04/22 21:14 ALT 66 U/L (0-33) H 12/04/22 21:14 Alkaline Phosphatase 80 U/L (35-105) 12/04/22 21:14 Total Protein 7.0 g/dL (6.6-8.7) 12/04/22 21:14 Albumin 4.5 g/dL (3.5-5.2) 12/04/22 21:14 Globulin 2.5 g/dL (1.3-4.6) 12/04/22 21:14 Lipase 155 U/L (13-60) H 12/04/22 21:14 Discharge Plan Discharge Clinical Impression: Abdominal pain, Pancreatitis, Leukocytosis Condition: Stable Prescriptions: No Action albuterol sulfate 90 mcg/actuation HFA aerosol inhaler 2 inh inhalation Q6H PRN (Reason: shortness of breath or wheezing) Qty: 6.7 0RF nitrofurantoin monohyd/m-cryst [Macrobid] 100 mg capsule 100 mg PO Q12H 5 Days Qty: 10 0RF Rx Instructions: must administer with a meal/food propranolol 20 mg tablet 40 mg PO BID Qty: 120 11RF losartan 50 mg tablet 50 mg PO DAILY Qty: 30 5RF omeprazole 40 mg capsule,delayed release(DR/EC) 40 mg PO QAM Amadeo-Plex 85 mg PO DAILY Referrals: Bebo Culver DO [Primary Care Provider] - Patient Instructions: Abdominal Pain (ED) Coding Level of Care Code ED [employer] Program Coordinator for [facility] Karthik
--- NOTE | 2022-12-04 22:36 | CTR_ITS ---
PROCEDURE INFORMATION: Exam: CT Abdomen And Pelvis With Contrast Exam date and time: 12/05/2022 12:20 AM Age: 37 years old Clinical indication: Abdominal pain; Generalized; Prior surgery; Surgery date: 6+ months; Surgery type: Laparoscopy, leep TECHNIQUE: Imaging protocol: Computed tomography of the abdomen and pelvis with contrast. Sagittal and coronal reformatted images were created and reviewed. Radiation optimization: All CT scans at this facility use at least one of these dose optimization techniques: automated exposure control; mA and/or kV adjustment per patient size (includes targeted exams where dose is matched to clinical indication); or iterative reconstruction. Contrast material: OMNI 350; Contrast volume: 100 ml; Contrast route: INTRAVENOUS (IV); REPORTING DATA: Count of CT and Cardiac NM exams in prior 12 months: This patient has received 0 known CTs and 0 known cardiac nuclear medicine studies in the 12 months prior to the current study. COMPARISON: CT abdomen pelvis wo con [id number] 10/02/2021 7:47 PM RADIATION DOSE METRICS: Total DLP (mGy-cm): 477.54 FINDINGS: Lungs: Dependent atelectasis in the visualized lungs. Pleural spaces: No pleural effusion. Heart: Visualized cardiac chambers are unremarkable. Liver: The liver is unremarkable. Gallbladder and bile ducts: The gallbladder is unremarkable. No biliary ductal dilatation. Pancreas: Peripancreatic inflammatory change and free fluid extending inferiorly along the right retroperitoneum, consistent with focal mild acute pancreatitis. No pancreatic ductal dilatation. No pancreatic atrophy. No evidence for pancreatic necrosis. Spleen: The spleen is unremarkable. Adrenal glands: The right and left adrenal glands are unremarkable. Kidneys and ureters: The right and left kidneys are unremarkable. The right and left ureters are unremarkable. Stomach and bowel: No obstruction. No mucosal thickening. Appendix: The appendix is visualized and is unremarkable. No findings to suggest acute appendicitis. Intraperitoneal space: No free intraperitoneal air. No ascites. No loculated fluid collections to suggest an abscess. Vasculature: No evidence for aortic aneurysm or aortic dissection. Hepatic veins, portal veins, splenic vein, and SMV are patent. Incidental note of a circumaortic left renal vein. Lymph nodes: No lymphadenopathy. Urinary bladder: The bladder is unremarkable. Reproductive: There is an arcuate uterus. Bones/joints: No acute fracture. Soft tissues: Multiple subcentimeter follicles in both right and left ovaries. The extra-abdominal soft tissues are unremarkable. CT/CT abdomen pelvis w con* [id number] IMPRESSION: Changes consistent with focal mild acute pancreatitis involving the head and uncinate process of the pancreas.
[2022-12-04 23:08] LABS: Triglycerides 349 mg/dL (0-150)
[2022-12-04 23:32] LABS: HCG Qualitative Urine. Negative (Negative)
[2022-12-05] VITALS (13 sets, daily range): BP systolic 109–148; BP diastolic 66–99; PULSE 74–85; RESP 15–18; TEMP 36.4–37; O2SAT 95–97
--- NOTE | 2022-12-05 00:43 | PM.HP ---
Providers/Chief Complaint Admitting Physician: Katelynn Mendez MD Primary Care Provider: Bebo Culver DO Chief Complaint: abd pain History of Present Illness Sadaf Horner is a 37 year old female with a past medical history of hypertension and dyslipidemia who is presenting to the emergency room today with chief complaints of abdominal pain that started on Friday (today is Friday). Patient states that she had a few drinks in celebration of her anniversary on Friday and started to experience nausea and vomiting afterwards. Nausea has since resolved however her pain is still persisting. It is located mostly in the right upper quadrant and epigastric region. She has a past history of pancreatitis in 2021 which was attributed to alcohol use. She also has a history of hypertriglyceridemia, checked today at 360. No history of gallstones. No history of fever chills diarrhea cough chest pain. Review of Systems General: Reports: 10 or more systems reviewed and unremarkable except in HPI and below Const: Denies: fever(s), chills or body aches Eyes: Denies: change in vision, blurry vision or photophobia ENMT: Reports: hoarseness; Denies: throat pain, enlarged tonsils, odynophagia or nasal congestion Card: Denies: chest pain, palpitations, irregular heart rhythm, edema, swelling of feet/ankles, lightheadedness, pre-syncope, dyspnea on exertion or orthopnea Resp: Denies: dyspnea, productive cough, non-productive cough, wheezing, stridor, pain on inspiration, change in phlegm color, hemoptysis or chest congestion GI: Denies: abdominal pain, nausea, vomiting, hematemesis, coffee ground emesis, dysphagia, heartburn, diarrhea, constipation, GI cramping, change in stool character, hematochezia or melena : Denies: flank pain, difficulty voiding, dysuria, urinary frequency, urinary urgency, urinary hesitancy or hematuria Musc: Denies: neck pain, back pain, extremity pain, joint swelling, joint warmth or deformity Neuro: Denies: headache(s), numbness in extremities, weakness in extremities, sensory changes, difficulty walking, frequent falls, dizziness, vertigo, behavioral changes, Slurred speech present or seizure-like activity Psych: Denies: anxiety, depression, suicidal ideation or homicidal ideation Endo: Denies: polyuria, polydipsia, tired all the time, cold intolerance or hot flashes Amadeo/Lymph: Denies: easy bruising or easy bleeding Medications/Allergies Home Medications Medication Instructions Recorded Confirmed Last Taken Type omeprazole 40 mg capsule,delayed 40 mg PO QAM 02/14/21 07/31/22 10/02/21 History release Amadeo-Plex 85 mg PO DAILY 10/02/21 07/31/22 10/02/21 History albuterol sulfate 90 mcg/actuation 2 inh inhalation Q6H PRN shortness 05/24/22 07/31/22 Unknown Rx aerosol inhaler of breath or wheezing #6.7 grams losartan 50 mg tablet 50 mg PO DAILY #30 tabs 07/31/22 07/31/22 Unknown Rx nitrofurantoin 100 mg PO Q12H 5 days #10 caps 07/31/22 07/31/22 Unknown Rx monohydrate/macrocrystals 100 mg capsule (Macrobid) propranolol 20 mg tablet 40 mg PO BID #120 tabs 07/31/22 07/31/22 Unknown Rx Allergies Allergy/AdvReac Type Severity Reaction Status Date / Time codeine Allergy swelling Verified 12/04/22 20:49 doxycycline Allergy ADR-Abdominal Verified 12/04/22 20:49 Pain Penicillins Allergy rash Verified 12/04/22 20:49 PFSH Acute PFSH: Medical History High risk medication use Hypertension Inflammatory arthritis Iron deficiency Pancreatitis, alcoholic, acute Pre-eclampsia Surgical History History of knee surgery History of laparoscopy Family History Mother Thyroid activity decreased Other Cancer Chronic kidney disease (CKD) Diabetes Family history of premature coronary artery disease Hypertension Lupus Rheumatoid arthritis Denies family history of Hyperlipidemia Lung disease Stroke Social History Smoking and tobacco status: current every day smoker Alcohol intake: current Substance/Drug Use: never Female Reproductive History: Date of last menstrual period: 11/23/22 Vitals/I&O/Wt Last Vital Signs Temp 97.9 F 12/04/22 20:44 Pulse 87 12/04/22 22:01 Resp 16 12/04/22 22:01 BP 173/99 12/04/22 22:01 Pulse Ox 100 12/04/22 22:01 O2 Del Method Room Air 12/04/22 20:44 Weight last 48 hrs Weight 68.039 kg Physical Exam Narrative: General: No acute distress, AO x3 HEENT: PERRLA, pupils bilaterally equal and reactive, pallors not present Chest: Normal vesicular breath sounds, no added sounds, equal good air entry bilaterally CVS: S1-S2 regular, no murmurs, no tachycardia, no gallops, no rubs Abdomen: Soft, nontender, no organomegaly, bowel sounds present Neuro: No focal deficits, no facial deformity, AO x3, power 5/5 in all limbs Data 12/04/22 21:14 12/04/22 21:14 Other Labs: Laboratory Results WBC 15.2 10^3/uL (4.0-10.0) H 12/04/22 21:14 RBC 3.76 10^6/uL (4.1-5.3) L 12/04/22 21:14 Hgb 14.9 g/dL (11.5-15.3) 12/04/22 21:14 Hct 42.1 % (37.0-47.0) 12/04/22 21:14 MCV 112.0 fl (81-99) H 12/04/22 21:14 MCH 39.6 pg (28.0-34.0) H 12/04/22 21:14 MCHC 35.4 g/dL (30.0-36.0) 12/04/22 21:14 RDW 12.8 % (12.1-15.1) 12/04/22 21:14 Plt Count 251 10^3/cmm (130-400) 12/04/22 21:14 MPV 10.1 fL (7.4-10.4) 12/04/22 21:14 Neut % (Auto) 69.9 % 12/04/22 21:14 Lymph % (Auto) 20.6 % 12/04/22 21:14 [place] % (Auto) 5.5 % 12/04/22 21:14 Eos % (Auto) 2.8 % 12/04/22 21:14 Baso % (Auto) 0.7 % 12/04/22 21:14 Neut # (Auto) 10.62 10^3/uL (1.8-7.7) H 12/04/22 21:14 Lymph # (Auto) 3.1 10^3/uL (0.8-4.8) 12/04/22 21:14 [place] # (Auto) 0.8 10^3/uL (0.2-0.9) 12/04/22 21:14 Eos # (Auto) 0.4 10^3/uL (0.0-0.8) 12/04/22 21:14 Baso # (Auto) 0.1 10^3/uL (0.0-0.1) 12/04/22 21:14 Nucleated RBC % (auto) 0 % 12/04/22 21:14 Nucleated RBCs # 0.0 /100WBC 12/04/22 21:14 Sodium 138 mmol/L (136-145) 12/04/22 21:14 Potassium 3.9 mmol/L (3.5-5.1) 12/04/22 21:14 Chloride 104 mmol/L (98-107) 12/04/22 21:14 Carbon Dioxide 22 mmol/L (22-29) 12/04/22 21:14 Anion Gap 15.9 (5-19) 12/04/22 21:14 BUN 9 mg/dL (6-20) 12/04/22 21:14 Creatinine 1.0 mg/dL (0.5-0.9) H 12/04/22 21:14 GFR Calculation 61.7 mL/min (90-130) L 12/04/22 21:14 Glucose 102 mg/dL (65-115) 12/04/22 21:14 Calculated Osmolality 285 mOsm/kg (285-295) 12/04/22 21:14 Calcium 9.4 mg/dL (8.5-10.5) 12/04/22 21:14 Total Bilirubin 0.5 mg/dL (0.15-1.2) 12/04/22 21:14 AST 65 U/L (0-32) H 12/04/22 21:14 ALT 66 U/L (0-33) H 12/04/22 21:14 Alkaline Phosphatase 80 U/L (35-105) 12/04/22 21:14 Total Protein 7.0 g/dL (6.6-8.7) 12/04/22 21:14 Albumin 4.5 g/dL (3.5-5.2) 12/04/22 21:14 Globulin 2.5 g/dL (1.3-4.6) 12/04/22 21:14 Triglycerides 349 mg/dL (0-150) H 12/04/22 21:14 Lipase 155 U/L (13-60) H 12/04/22 21:14 HCG, Qual Negative (Negative) 12/04/22 Unknown A&P Assessment and plan (1) Pancreatitis: 37-year-old lady with a past medical history of pancreatitis presenting today with chief complaints of abdominal pain in the epigastric and right upper quadrant region. Elevated lipase at 155 Clinically picture appears to be systemic with acute pancreatitis likely precipitated by alcohol use. CT abdomen has been requested, currently pending. N.p.o. for bowel rest IV fluids normal saline at 125 cc an hour as needed Zofran for Nausea Has as needed morphine and Toradol for pain management TG level ~350 Attestations Medical Necessity Statement*: > 2 mdinight admission anticipated for management of acute pancreatitis Coding Level of Care Code Acute Code for [facility] Diagnoses Pancreatitis K85.90
[2022-12-05] MEDS: iohexol 350 mg/mL 500 mL Btl (per mL) IV (00:56)
[2022-12-05] MEDS: enoxaparin 40 mg/0.4 mL Syringe SUBCUT (01:05)
[2022-12-05] MEDS: sodium chloride 0.9% 1,000 ML 125 ML IV ×3 (01:05→16:52)
[2022-12-05] MEDS: pantoprazole 40 mg SDV IVP (01:13)
[2022-12-05] MEDS: morphine 4 mg/mL SDV 1 mL IVP ×5 (01:14→22:20)
--- NOTE | 2022-12-05 01:15 | ECG_ITS ---
[facility] Test Date: 2022-12-05 Pat Name: Sadaf Horner Department: Room: 259 Gender: Female Content Checker: : 1985 Requested By: Katelynn Mendez Order Number: [id number] Jimmy MD: Say Nascimento M.D. Measurements Intervals [place] Rate: 73 P: 55 MA: 170 QRS: 30 QRSD: 96 T: 17 QT: 390 QTc: 432 Interpretive Statements SINUS RHYTHM WITH SINUS ARRHYTHMIA POSSIBLE ANTERIOR MYOCARDIAL INFARCTION , OF INDETERMINATE AGE [30 ms Q WAVE IN V3/V4, OR R < 0.2 mV IN V4] Compared to ECG 10/02/2021 23:46:06 Myocardial infarct finding now present Electronically Signed On 12-05-2022 14:52:53 CDT by Say Nascimento M.D. [email or web address]
--- NOTE | 2022-12-05 01:17 | PC.NURSE ---
ADMIT NOTE Pt was received to room from the ED via wheelchair at 0050. Changed into hospital gown. Is alert and oriented. IV fluids started at 125ml/hr rate. Started SQ Lovenox and RN giving IV Toradol, Protonix and dose of Morphine. Says abd pain starting to increase again. Tells me she has been having upper abd pain/tenderness & bloating, as well as nausea with some occ vomiting. Started over the weekend after she consumed alcohol on Friday. Says she has had pancreatitis before and was trying to treat herself. Is aware of NPO status with only ice chips & sips. RN completing admission assessment
[2022-12-05] MEDS: ketorolac 30 mg/mL INJ 15 MG IVP ×3 (01:24→15:58)
[2022-12-05] MEDS: losartan 50 mg Tablet PO (08:42)
[2022-12-05] MEDS: propranolol 20 mg Tablet 40 MG PO ×2 (08:42→18:22)
--- NOTE | 2022-12-05 09:26 | PM.MISC ---
Miscellaneous Note Purpose of Documentation: Patient was seen and examined Patient is stating that this is her second episode of alcohol use pancreatitis Complaining of pain We will start on clear liquids as a trial to see how she tolerates Awake and alert Mild tenderness midepigastric region Looks dehydrated Mild discomfort S1, S2 Currently on room air Nonfocal neuro exam Plan Start clear liquids Opiates for analgesia Continue aggressive IV fluid hydration Monitor for any signs of septic necrotic pancreatitis Leukocytosis is moderate with 15,000 Triglycerides 349, she will need optimization of medications for her dyslipidemia
[2022-12-05] MEDS: ondansetron 2 mg/ML SDV 2 mL 4 MG IVP (19:54)
[2022-12-06] VITALS (11 sets, daily range): BP systolic 122–147; BP diastolic 77–91; PULSE 67–80; RESP 14–18; TEMP 36.6–37; O2SAT 95–97
[2022-12-06] MEDS: enoxaparin 40 mg/0.4 mL Syringe SUBCUT (00:41)
[2022-12-06] MEDS: sodium chloride 0.9% 1,000 ML 125 ML IV ×3 (00:42→18:12)
[2022-12-06] MEDS: ketorolac 30 mg/mL INJ 15 MG IVP ×3 (00:43→16:50)
[2022-12-06] MEDS: pantoprazole 40 mg SDV IVP (00:43)
[2022-12-06] MEDS: morphine 4 mg/mL SDV 1 mL IVP ×3 (04:06→18:13)
[2022-12-06] MEDS: ondansetron 2 mg/ML SDV 2 mL 4 MG IVP ×3 (04:06→21:51)
[2022-12-06 06:21] LABS: Basophils # 0.1 10^3/uL (0.0-0.1); Basophils % 0.7 %; Eosinophils # 0.3 10^3/uL (0.0-0.8); Hematocrit 33.8 % (37.0-47.0); Hemoglobin 11.5 g/dL (11.5-15.3); Lymphocytes # 2.7 10^3/uL (0.8-4.8); Lymphocytes % 37.1 %; Mean Corpuscular Hemoglobin 38.1 pg (28.0-34.0); Mean Corpuscular Volume 111.9 fl (81-99); Mean Platelet Volume 10.3 fL (7.4-10.4); Monocytes # 0.4 10^3/uL (0.2-0.9); Monocytes % 5.4 %; Neutrophils # 3.83 10^3/uL (1.8-7.7); Neutrophils % 52.7 %; Nucleated Red Blood Cells % 0 %; Platelet Count 209 10^3/cmm (130-400); Red Blood Count 3.02 10^6/uL (4.1-5.3); Red Cell Distribution Width 12.4 % (12.1-15.1); White Blood Count 7.3 10^3/uL (4.0-10.0)
[2022-12-06 06:40] LABS: Alanine Aminotransferase 30 U/L (0-33); Albumin Level 3.3 g/dL (3.5-5.2); Alkaline Phosphatase 57 U/L (35-105); Anion Gap 13.9 (5-19); Aspartate Amino Transferase 25 U/L (0-32); Blood Urea Nitrogen 8 mg/dL (6-20); Calcium 7.6 mg/dL (8.5-10.5); Carbon Dioxide 21 mmol/L (22-29); Chloride 109 mmol/L (98-107); Globulin 1.9 g/dL (1.3-4.6); Glomerular Filtration Rate 111.3 mL/min (90-130); Glucose 90 mg/dL (65-115); Osmolality Calculated 288 mOsm/kg (285-295); Potassium 3.9 mmol/L (3.5-5.1); Sodium 140 mmol/L (136-145); Total Bilirubin 0.5 mg/dL (0.15-1.2); Total Protein 5.2 g/dL (6.6-8.7)
[2022-12-06] MEDS: losartan 50 mg Tablet PO (09:55)
[2022-12-06] MEDS: propranolol 20 mg Tablet 40 MG PO ×2 (09:55→17:41)
--- NOTE | 2022-12-06 10:29 | PM.PN ---
Subjective Subjective: She had 1 episode of vomiting However pain is slightly better I will advance her diet to full liquids Vitals/I&O/Wt Last Vital Signs Temp 98.6 F 12/06/22 07:09 Pulse 76 12/06/22 07:09 Resp 14 12/06/22 07:09 BP 122/78 12/06/22 09:55 Pulse Ox 96 12/06/22 07:09 O2 Del Method Room Air 12/06/22 07:09 12/05/22 12/06/22 12/06/22 22:59 06:59 14:59 Intake Total 1240 / 2682.5 1219.167 / 3901.667 1177.5 / 1177.5 Output Total 400 / 400 125 / 525 Balance 840 / 2282.5 1094.167 / 3376.667 1177.5 / 1177.5 Weight last 48 hrs Weight 68.039 kg Physical Exam Narrative: Afebrile Abdomen distended nontender GCS 15 Nonfocal neuro exam Signs of dehydration improving No active emesis Currently on room air Pleasant and cooperative S1, S2 Data 12/06/22 06:00 12/06/22 06:00 A&P Assessment and plan (1) Abdominal pain: (2) Pancreatitis: (3) Macrocytosis without anemia: (4) Leukocytosis: (5) Iron deficiency: Plan Alcohol use pancreatitis Symptomatically patient is improving She is scared to go home because she has 5 kids and is not at home she had 1 episode of emesis today I have given her option to advance diet and see how she tolerates by the lunchtime We will continue opioids and IV fluids for now Leukocytosis has improved She is afebrile no signs of necrotic pancreatitis Full liquid diet DVT prophylaxis on board Plan to discharge later today versus tomorrow morning Hypokalemia: Replenish potassium Hypertension: I will continue losartan for now DVT prophylaxis covered with Lovenox Attestations Medical Necessity Statement*: Discharge later today versus tomorrow morning Diagnoses Abdominal pain R10.9 Pancreatitis K85.90 Macrocytosis without anemia D75.89 Leukocytosis D72.829 Iron deficiency E61.1
[2022-12-06] MEDS: morphine 4 mg/mL SDV 1 mL 2 MG IVP (22:29)
[2022-12-07] VITALS (7 sets, daily range): BP systolic 144–147; BP diastolic 84–92; PULSE 72–98; RESP 14–18; TEMP 36.7–36.8; O2SAT 94–97
[2022-12-07] MEDS: ketorolac 30 mg/mL INJ 15 MG IVP ×2 (00:19→08:20)
[2022-12-07] MEDS: pantoprazole 40 mg SDV IVP (00:19)
[2022-12-07] MEDS: enoxaparin 40 mg/0.4 mL Syringe SUBCUT (00:20)
[2022-12-07] MEDS: sodium chloride 0.9% 1,000 ML 125 ML IV ×2 (02:11→10:17)
[2022-12-07] MEDS: morphine 4 mg/mL SDV 1 mL IVP (02:13)
[2022-12-07 03:42] LABS: Basophils # 0.1 10^3/uL (0.0-0.1); Basophils % 0.8 %; Eosinophils # 0.3 10^3/uL (0.0-0.8); Eosinophils % 3.7 %; Hematocrit 32.5 % (37.0-47.0); Hemoglobin 11.3 g/dL (11.5-15.3); Lymphocytes # 2.6 10^3/uL (0.8-4.8); Lymphocytes % 32.9 %; Mean Corpuscular HGB Conc 34.8 g/dL (30.0-36.0); Mean Corpuscular Hemoglobin 38.8 pg (28.0-34.0); Mean Corpuscular Volume 111.7 fl (81-99); Mean Platelet Volume 10.2 fL (7.4-10.4); Monocytes # 0.4 10^3/uL (0.2-0.9); Monocytes % 5.1 %; Neutrophils # 4.53 10^3/uL (1.8-7.7); Neutrophils % 57.1 %; Nucleated Red Blood Cells % 0 %; Platelet Count 206 10^3/cmm (130-400); Red Blood Count 2.91 10^6/uL (4.1-5.3); Red Cell Distribution Width 12.5 % (12.1-15.1); White Blood Count 7.9 10^3/uL (4.0-10.0)
[2022-12-07 03:55] LABS: Alanine Aminotransferase 25 U/L (0-33); Albumin Level 3.1 g/dL (3.5-5.2); Alkaline Phosphatase 59 U/L (35-105); Anion Gap 11.7 (5-19); Aspartate Amino Transferase 26 U/L (0-32); Blood Urea Nitrogen 8 mg/dL (6-20); Calcium 7.8 mg/dL (8.5-10.5); Carbon Dioxide 20 mmol/L (22-29); Chloride 111 mmol/L (98-107); Globulin 1.8 g/dL (1.3-4.6); Glomerular Filtration Rate 111.3 mL/min (90-130); Glucose 90 mg/dL (65-115); Osmolality Calculated 286 mOsm/kg (285-295); Potassium 3.7 mmol/L (3.5-5.1); Sodium 139 mmol/L (136-145); Total Bilirubin 0.4 mg/dL (0.15-1.2); Total Protein 4.9 g/dL (6.6-8.7)
[2022-12-07] MEDS: ondansetron 2 mg/ML SDV 2 mL 4 MG IVP (08:19)
[2022-12-07] MEDS: losartan 50 mg Tablet PO (08:21)
[2022-12-07] MEDS: propranolol 20 mg Tablet 40 MG PO (08:21)
--- NOTE | 2022-12-07 11:38 | USCV_ITS ---
Sadaf Horner Age: 37 Gender: F : 1985 Exam Date: 12/07/2022 14:38 Ordering Phys: Ashley Nayak MD Technologist: NAN Exam Location: [facility] – [place] Indication: edema BP: / HR: 80 Rhythm: Sinus Technical Quality: Adequate MEASUREMENTS (Male / Female) Normal Values 2D ECHO LV Diastolic Diameter PLAX 4.9 cm 4.2 - 5.9 / 3.9 - 5.3 cm LV Systolic Diameter PLAX 3.5 cm IVS Diastolic Thickness 0.7 cm 0.6 - 1.0 / 0.6 - 0.9 cm IVS Systolic Thickness 1.1 cm LVPW Diastolic Thickness 0.8 cm 0.6 - 1.0 / 0.6 - 0.9 cm LVPW Systolic Thickness 1.2 cm LVOT Diameter 2.3 cm LV Ejection Fraction 2D Teich 55.2 % LV Ejection Fraction MOD 2C 44.9 % LV Ejection Fraction 2C AL 45.7 % LA Diameter 4.1 cm IVC Diameter 2.3 cm M-MODE Aortic Annulus Diameter 2.7 cm LA Ao Ratio MM 1.7 MV E Point Septal Separation 0.4 cm DOPPLER AV Peak Velocity 127.0 cm/s LVOT Peak Velocity 114.0 cm/s AV Area Cont Eq vti 3.7 cm squared AV Area Cont Eq pk 3.6 cm squared MV Area PHT 4.9 cm squared Mitral E to A Ratio 1.1 MV E' Velocity 63.0 cm/s Mitral E to MV E' Ratio 11.1 Mitral E to LV E' Lateral Ratio 9.4 Mitral E to LV E' Septal Ratio 13.4 TV Peak E Velocity 74.0 cm/s PV Peak Velocity 83.0 cm/s FINDINGS Left Ventricle Normal left ventricular size and systolic function, EF 60 % (visual). No regional wall motion abnormalities. Right Ventricle The right ventricle is normal in size and function. Right Atrium The right atrium is normal in size. Left Atrium Mildly increased left atrial size. Mitral Valve No gross abnormalities noted Aortic Valve No gross abnormalities noted Tricuspid Valve No gross abnormalities noted Pulmonic Valve No gross abnormalities noted Pericardium Normal pericardium without effusion. Aorta Normal ascending aorta dimension. IVC Normal IVC dimension with >50% respiratory change of the inferior vena cava. CONCLUSIONS Normal left ventricular size and systolic function, EF 60 % (visual). No regional wall motion abnormalities. Normal cardiac chamber sizes. No significant stenotic or ureteral lesions. There is no pericardial effusion. There are no intracardiac masses. No similar previous studies are available for comparison Dr Mckay Jade MD [facility] (Electronically Signed) Final Date: 07 December 2022 21:32 S
--- NOTE | 2022-12-07 11:52 | P.DS_ITS ---
Discharge Providers Date of Admission: 12/04/22 22:39 Date of Discharge: December 07, 2022 Attending Provider at Admission: Katelynn Mendez MD Attending Provider at Discharge: Ashley Nayak MD Primary Care Provider: Bebo Culver DO Diagnoses at Discharge Discharge Diagnosis (1) Abdominal pain: Status: Acute (2) Pancreatitis: Status: Acute (3) Macrocytosis without anemia: Status: Acute (4) Leukocytosis: Status: Acute (5) Iron deficiency: Status: Acute Reason for Visit Reason for Visit: abd pain Hospital Course Hospital Course 37-year-old female who was admitted for management of recurrent nausea vomit abdominal pain related to alcohol use pancreatitis, before discharge patient was able to tolerate full liquid diet, abdominal pain has improved, patient does have Maller rash and complaining of some joint pains in her knuckles I have requested lupus antibodies along AMADO TSH and CRP, patient did get aggressive maintenance fluid resuscitation 125 mill per hour with normal saline, she does have mild signs of fluid overload for which I have given her p.o. Lasix 40 mg before discharge I also requested echo before her discharge. I have asked patient to follow-up with her PCP in order to follow-up on autoimmune disease work-up. I have counseled patient to quit drinking alcohol. Physical Exam Narrative: Awake and alert Abdomen soft Mild signs of fluid overload No STEMI Currently on room air Pleasant and cooperative GCS 15 Discharge Data Studies Completed and Pending Completed Studies During Hospitalization Category Date Time Status CT abdomen pelvis w con* [id number] Stat Cat Scan 12/04/22 22:36 Completed Pending at discharge Category Date Time Status AMADO Profile Custom [[facility] AM[facility]O Profile] Routine Lab 12/07/22 11:38 Ordered AMADO Screen w/ Reflex Routine Lab 12/07/22 11:38 Ordered Anti Double Stranded DNA AB Routine Lab 12/07/22 11:38 Ordered CRP [C Reactive Protein] Routine Lab 12/07/22 11:38 Ordered Cortisol Random Routine Lab 12/07/22 11:38 Ordered ESR [Erythrocyte Sedimentation Rate] Routine Lab 12/07/22 11:38 Ordered TSH [Thyroid Stimulating Hormone] Routine Lab 12/07/22 11:38 Ordered CV. echo complete* [id number] Routine Ultrasound 12/07/22 11:38 Ordered Radiology Impressions Abdomen/Pelvis CT 12/04/22 22:36 IMPRESSION: Changes consistent with focal mild acute pancreatitis involving the head and uncinate process of the pancreas. Laboratory Results WBC 7.9 10^3/uL (4.0-10.0) 12/07/22 03:21 RBC 2.91 10^6/uL (4.1-5.3) L 12/07/22 03:21 Hgb 11.3 g/dL (11.5-15.3) L 12/07/22 03:21 Hct 32.5 % (37.0-47.0) L 12/07/22 03:21 MCV 111.7 fl (81-99) H 12/07/22 03:21 MCH 38.8 pg (28.0-34.0) H 12/07/22 03:21 MCHC 34.8 g/dL (30.0-36.0) 12/07/22 03:21 RDW 12.5 % (12.1-15.1) 12/07/22 03:21 Plt Count 206 10^3/cmm (130-400) 12/07/22 03:21 MPV 10.2 fL (7.4-10.4) 12/07/22 03:21 Neut % (Auto) 57.1 % 12/07/22 03:21 Lymph % (Auto) 32.9 % 12/07/22 03:21 Mccurtain % (Auto) 5.1 % 12/07/22 03:21 Eos % (Auto) 3.7 % 12/07/22 03:21 Baso % (Auto) 0.8 % 12/07/22 03:21 Neut # (Auto) 4.53 10^3/uL (1.8-7.7) 12/07/22 03:21 Lymph # (Auto) 2.6 10^3/uL (0.8-4.8) 12/07/22 03:21 Mccurtain # (Auto) 0.4 10^3/uL (0.2-0.9) 12/07/22 03:21 Eos # (Auto) 0.3 10^3/uL (0.0-0.8) 12/07/22 03:21 Baso # (Auto) 0.1 10^3/uL (0.0-0.1) 12/07/22 03:21 Nucleated RBC % (auto) 0 % 12/07/22 03:21 Nucleated RBCs # 0.0 /100WBC 12/07/22 03:21 Sodium 139 mmol/L (136-145) 12/07/22 03:21 Potassium 3.7 mmol/L (3.5-5.1) 12/07/22 03:21 Chloride 111 mmol/L (98-107) H 12/07/22 03:21 Carbon Dioxide 20 mmol/L (22-29) L 12/07/22 03:21 Anion Gap 11.7 (5-19) 12/07/22 03:21 BUN 8 mg/dL (6-20) 12/07/22 03:21 Creatinine 0.6 mg/dL (0.5-0.9) 12/07/22 03:21 GFR Calculation 111.3 mL/min (90-130) 12/07/22 03:21 Glucose 90 mg/dL (65-115) 12/07/22 03:21 Calculated Osmolality 286 mOsm/kg (285-295) 12/07/22 03:21 Calcium 7.8 mg/dL (8.5-10.5) L 12/07/22 03:21 Total Bilirubin 0.4 mg/dL (0.15-1.2) 12/07/22 03:21 AST 26 U/L (0-32) 12/07/22 03:21 ALT 25 U/L (0-33) 12/07/22 03:21 Alkaline Phosphatase 59 U/L (35-105) 12/07/22 03:21 Total Protein 4.9 g/dL (6.6-8.7) L 12/07/22 03:21 Albumin 3.1 g/dL (3.5-5.2) L 12/07/22 03:21 Globulin 1.8 g/dL (1.3-4.6) 12/07/22 03:21 Triglycerides 349 mg/dL (0-150) H 12/04/22 21:14 Lipase 155 U/L (13-60) H 12/04/22 21:14 HCG, Qual Negative (Negative) 12/04/22 Unknown Vitals Last Vital Signs Temp 98.1 F 12/07/22 07:53 Pulse 80 12/07/22 07:53 Resp 14 12/07/22 07:53 BP 146/84 12/07/22 08:21 Pulse Ox 95 12/07/22 07:53 O2 Del Method Room Air 12/07/22 03:58 Discharge Plan Discharge Patient Disposition: Home Condition: Stable Prescriptions: New ondansetron HCl 4 mg tablet 4 mg PO DAILY Qty: 14 0RF tramadol 50 mg tablet 25 mg PO Q6H PRN (Reason: pain) Qty: 10 0RF Continued albuterol sulfate 90 mcg/actuation HFA aerosol inhaler 2 inh inhalation Q6H PRN (Reason: shortness of breath or wheezing) Qty: 6.7 0RF propranolol 20 mg tablet 40 mg PO BID Qty: 120 11RF losartan 50 mg tablet 50 mg PO DAILY Qty: 30 5RF omeprazole 40 mg capsule,delayed release(DR/EC) 40 mg PO QAM Amadeo-Plex 85 mg PO DAILY Discharge Orders: Discharge Order (Routine); Ordered 12/07/22 Ordered By: Ashley Nayak Referrals: Bebo Culver DO [Primary Care Provider] - 2 weeks (Message sent to clinic.) Discharge Diet: GI Soft Patient Instructions: Tramadol (By mouth), Ondansetron (By mouth), Pancreatitis (GEN), Abdominal Pain (ED), Opioid Safety Discharge Attestations Time Spent in Discharge Care*: greater than 30 min Quality Metrics Clinical Quality Measures [ No reported AMI, CVA or VTE this stay] Coding Level of Care Code Acute Code for Chg Fwd Diagnoses Abdominal pain R10.9 Pancreatitis K85.90 Macrocytosis without anemia D75.89 Leukocytosis D72.829 Iron deficiency E61.1
[2022-12-07 11:55] LABS: Erythrocyte Sedimentation Rate 2 mm/hr (0-15)
[2022-12-07 12:50] LABS: C Reactive Protein 6.9 mg/L (0.0-4.9); Cortisol Random 4.74 ug/dL (2.47-19.5); Thyroid Stimulating Hormone 2.86 uIU/mL (0.27-4.20)
[2022-12-07] MEDS: FUROsemide 20 mg Tablet PO (12:53)
[2022-12-07] MEDS: potassium chloride ER 20 mEq Tablet 40 MEQ PO (12:53)
--- NOTE | 2022-12-07 13:15 | PC.NURSE ---
Called Arthur in radiology patient has an echo ordered and needs to be complete before Patient can discharge. Patient does not have to wait for results.
--- NOTE | 2022-12-07 14:16 | PC.NURSE ---
Notified Scar in Ultrasound patient really needs the Echo before discharge. Nilson stated it would be done as soon as he could.
[2022-12-10 13:19] LABS: Anti-Double Strand DNA AB 1 IU/mL; Jo-1 Antibody <1.0 NEG AI (<1.0 NEG); SM/RNP Antibodies <1.0 NEG AI (<1.0 NEG); SS-B/LA IGG <1.0 NEG AI (<1.0 NEG); Scleroderma Ab(Scl-70) Ab <1.0 NEG AI (<1.0 NEG); Ss-A/Ro Igg <1.0 NEG AI (<1.0 NEG)
[2022-12-10 16:18] LABS: Anti-Nuclear Antibody Screen NEGATIVE (NEGATIVE)
== END 2022-12-07 15:06 | disposition home or self-care (01) | DRG 440 ==
LOC: ER 22:49 → MEDSURG 23:18
PROVIDERS: Emergency Medicine; Admitting Provider Student in an Organized Health Care Education/Training Program; Emergency Provider Family Medicine; PCP Family Medicine; Visit Provider Internal Medicine
DX: K85.20 Alcohol induced acute pancreatitis without necrosis or infection (principal); F10.90 Alcohol use, unspecified, uncomplicated; E87.70 Fluid overload, unspecified; Z79.51 Long term (current) use of inhaled steroids; I10 Essential (primary) hypertension; E78.5 Hyperlipidemia, unspecified; F17.200 Nicotine dependence, unspecified, uncomplicated; E86.0 Dehydration; E61.1 Iron deficiency; E87.6 Hypokalemia
CPT/HCPCS: 36415; 74177; 80053; 81025; 82533; 83690; 84443; 84478; 85025; 85651; 86038; 86140; 86225; 86235; 93005; 93306; 96372; 96374; 96375; 99285; C9113; J1650; J1885; J2270; J2405; J7030; Q9967

== ENCOUNTER → 2023-06-11 12:54 | Outpatient (BNVA) | payer OTHER, SELFPAY | PROVIDERS: PCP Family Medicine; Visit Provider Nurse Practitioner | DX: S92.512A Displaced fracture of proximal phalanx of left lesser toe(s), initial encounter for closed fracture (principal); X58.XXXA Exposure to other specified factors, initial encounter | CPT/HCPCS: 73630 ==

== ENCOUNTER → 2023-12-28 14:33 | Outpatient (BNVA) | payer OTHER, SELFPAY | PROVIDERS: PCP Family Medicine; Visit Provider Family Medicine | DX: K85.20 Alcohol induced acute pancreatitis without necrosis or infection (principal); R74.01 Elevation of levels of liver transaminase levels | CPT/HCPCS: 80053; 83690 ==

== ENCOUNTER 2024-01-28 17:10 | Outpatient (CLI) | payer OTHER, SELFPAY ==
[2024-01-28 17:46] LABS: Basophils # 0.1 10^3/uL (0.0-0.1); Basophils % 0.8 %; Eosinophils # 0.3 10^3/uL (0.0-0.8); Eosinophils % 4.4 %; Hematocrit 35.8 % (36-47); Lymphocytes # 3.1 10^3/uL (0.8-4.8); Lymphocytes % 40.8 %; Mean Corpuscular HGB Conc 34.6 g/dL (30-55); Mean Corpuscular Hemoglobin 34.7 pg (27-33); Mean Corpuscular Volume 100.3 fl (85-98); Mean Platelet Volume 10.3 fL (7.4-10.4); Monocytes # 0.4 10^3/uL (0.2-0.9); Monocytes % 4.6 %; Neutrophils % 49.1 %; Nucleated Red Blood Cells % 0 %; Platelet Count 247 10^3/cmm (157-399); Red Blood Count 3.57 10^6/uL (3.85-5.65); Red Cell Distribution Width 11.8 % (12.1-15.1); White Blood Count 7.54 10^3/uL (3.29-11.43)
[2024-01-28 18:35] LABS: 25 Hydroxy Vitamin D 24 ng/mL (30-100); Alanine Aminotransferase 40 U/L (0-33); Albumin Level 4.5 g/dL (3.5-5.2); Alkaline Phosphatase 89 U/L (35-105); Anion Gap 16.8 (5-19); Aspartate Amino Transferase 41 U/L (0-32); Blood Urea Nitrogen 10 mg/dL (6-20); Calcium 9.9 mg/dL (8.5-10.5); Carbon Dioxide 22 mmol/L (22-29); Chloride 104 mmol/L (98-107); Chol HDL Ratio 5.67 mg/dL (0.0-4.40); Cholesterol 170 mg/dL (0-200); Ferritin 30 ng/mL (15-150); Globulin 2.6 g/dL (1.3-4.6); Glomerular Filtration Rate 110.7 mL/min (90-130); Glucose 100 mg/dL (65-115); HDL Cholesterol 30 mg/dL (60-100); Iron 56 ug/dL (37-145); LDL Cholesterol Calculated 101 mg/dL (50-129); LDL HDL Ratio 3.37 RATIO (0.00-3.22); Lipase 51 U/L (13-60); Osmolality Calculated 287 mOsm/kg (285-295); Percent Saturation 16.5 % (20-50); Potassium 3.8 mmol/L (3.5-5.1); Sodium 139 mmol/L (136-145); Thyroid Stimulating Hormone 0.74 uIU/mL (0.27-4.20); Total Bilirubin 0.2 mg/dL (0.15-1.2); Total Iron Binding Capacity 339 mcg/dl; Total Protein 7.1 g/dL (6.6-8.7); Triglycerides 196 mg/dL (0-150); Unsaturated Iron Binding 283 ug/dL (112-347); Vitamin B12 835 pg/mL (232-1245)
[2024-01-28 18:51] LABS: Folate Level 6.9 ng/mL (4.8-37.3)
[2024-01-28 22:07] LABS: Estmated Average Glucose 100; Hemoglobin A1C 5.1 % (4.0-6.0)
== END 2024-01-28 17:11 | disposition home or self-care (01) ==
LOC: LAB 17:11
PROVIDERS: PCP Family Medicine; Visit Provider Family Medicine
DX: K86.1 Other chronic pancreatitis (principal); K86.89 Other specified diseases of pancreas; E87.6 Hypokalemia; D53.9 Nutritional anemia, unspecified; R74.01 Elevation of levels of liver transaminase levels; E78.2 Mixed hyperlipidemia; E83.42 Hypomagnesemia; E55.9 Vitamin D deficiency, unspecified; R79.89 Other specified abnormal findings of blood chemistry
CPT/HCPCS: 36415; 80053; 80061; 82306; 82607; 82728; 82746; 83036; 83516; 83540; 83550; 83690; 83735; 84443; 84590; 85025; 86140

== ENCOUNTER 2025-03-13 11:50 | Inpatient (IN) | payer OTHER, SELFPAY ==
--- OUTSIDE RECORDS SUMMARY | 2024-05-11 05:30 | XMS_ITS ---
Author Organization [facility] Address [address] [place] [address] Care Team Providers Care Hot Blaster Name Role Phone Dr Bebo Culver DO Primary Care Provider Unav Carrie Ludwig Unavailable [phone] Rachel Cesar Unavailable [phone] REASON FOR VISIT Pancreatitis Encounters Encounter Location Date Provider [facility] [address] [place] [address] 05/11/2024 Rachel Cesar Plan Of Treatment No Information Progress Notes * Sadaf HORNER LDOB: [birth year] (39 yo F)Acc No.[id number]:05/11/2024 Progress Notes Patient: Juan Alberto bowlingflorence Sadaf Rico Provider: Mariano Cesar APRN :1985 A ge:38 Y S ex:Female Date:05/11/2024 Address:[facility] [address] Pcp:Dr Bebo Culver DO Subjective: * Chief Complaints: * P ancreatitis Billing Information: * Procedure Codes: * Electronic signature of Rachel Cesar APRN on 03/13/2025 at 11:58 AM CDT Sign off status: Pending * Provider: Mariano Cesar APRN Date: 07/12/2023 Generated for Karla morris/Han/eTransmitting on: 11:58 AM CDT
--- OUTSIDE RECORDS SUMMARY | 2024-05-11 05:30 | XMS_ITS ---
Author Organization [facility] Address [address] [place] [address] Care Team Providers Care Cartridge Maker Name Role Phone Abiola MAX, Dr Lagunas Primary Care Provider Unav ailable Carrie Butt Unavailable [phone] Florentin Rodriguez [phone] REASON FOR VISIT Pancreatitis Encounters Encounter Location Date Provider Diagnosis [facility] [address] [place] [address] 05/11/2024 Florentin Rodriguez Plan Of Treatment No Information Progress Notes * Sadaf HORNER LDOB: [birth year] (39 yo F)Acc No.[id number]:05/11/2024 Progress Notes Patient: Sadaf Patton Provider: Deandra Rodriguez MD :1985 A ge:38 Y S ex:Female Date:05/11/2024 Address:[facility] [address] Pcp:Dr Bebo Culver DO Subjective: * Chief Complaints: * P ancreatitis * Electronic signature of Will mirza Rodriguez MD on 03/13/2025 at 11:58 AM CDT Sign off status: Pending * Provider: Deandra Rodriguez MD Date: 07/12/2023 Generated for Karla morris/Han/eTransmitting on: 11:58 AM CDT
--- OUTSIDE RECORDS SUMMARY | 2024-06-23 07:00 | XMS_ITS ---
Author Organization [facility] Address [address] [place] [address] Care Team Providers Care Concert Or Lecture Hall Manager Name Role Phone Dr Bebo Culver DO Primary Care Provider Unav ailable Carrie Butt Unavailable [phone] REASON FOR VISIT Pancreatitis Encounters Encounter Location Date Provider Diagnosis [facility] [address] [place] [address] 06/23/2024 Carrie Butt Plan Of Treatment No Information Progress Notes * Sadaf HORNER LDOB: [birth year] (39 yo F)Acc No.[id number]:06/23/2024 Progress Notes Patient: Sadaf Patton Provider: Frank Butt APRN :1985 A ge:38 Y S ex:Female Date:06/23/2024 Address:[address] [place], [place] [address] Pcp:Dr Bebo Culver DO Subjective: * Chief Complaints: * P ancreatitis Billing Information: * Procedure Codes: * Electronic signature of Jeremy Butt APRN-ZIPPER MACHINE OPERATOR on 03/13/2025 at 11:57 AM CDT Sign off status: Pending * Provider: Frank Butt APRN Date: 0 06/23/2024 Generated for Karla morris/Han/eTransmitting on: 11:57 AM CDT
[2025-03-13] VITALS (13 sets, daily range): BP systolic 147–178; BP diastolic 68–104; PULSE 55–80; RESP 14–18; TEMP 36.7; O2SAT 94–99; BMI 29.2; BMI 30.2
--- OUTSIDE RECORDS SUMMARY | 2025-03-13 11:57 | XMS_ITS | Encounter Summary ---
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
--- OUTSIDE RECORDS SUMMARY | 2025-03-13 11:57 | XMS_ITS | Encounter Summary ---
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
--- OUTSIDE RECORDS SUMMARY | 2025-03-13 11:57 | XMS_ITS | Encounter Summary ---
Author Organization [facility] Address [address] [place] [address] Care Team Providers Care Cash Controller Name Role Phone Unavailable Primary Care Provider Unavailabl e Encounter Details Date Type Department Care Team (Latest Contact Info) Description 08/28/1998 Outpatient Historical [facility] [place] [address] [place] [address] Pawan Yo MD NO ADDRESS ON FILE Allergic rhinitis, cause unspecified (Primary Dx); Other chronic allergic conjunctivitis; Chronic rhinitis Social History Tobacco Use Types Packs/Day Years Used Date Smoking Tobacco: Never Assessed Comments Unknown Sex and Gender Information Value Date Recorded Sex Assigned at Not on file 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
--- OUTSIDE RECORDS SUMMARY | 2025-03-13 11:57 | XMS_ITS | Encounter Summary ---
Author Organization [facility] Address [address] [place] [address] Care Team Providers Care Numerical Control Machine Operator Name Role Phone Unavailable Primary Care Provider Unavailabl e Encounter Details Date Type Department Care Team (Latest Contact Info) Description 09/29/1998 Outpatient Historical [facility] Tyshawn Dang Jr., MD [address] [place] [address] Allergic rhinitis, cause unspecified (Primary Dx) Social History Tobacco Use Types Packs/Day Years Used Date Smoking Tobacco: Never Assessed Comments Unknown Sex and Gender Information Value Date Recorded Sex Assigned at Not on file 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
--- OUTSIDE RECORDS SUMMARY | 2025-03-13 11:57 | XMS_ITS | Encounter Summary ---
Author Organization [facility] Address [address] [place] [address] Care Team Providers Care Lens Maker Name Role Phone Unavailable Primary Care Provider Unavailabl e Encounter Details Date Type Department Care Team (Latest Contact Info) Description 09/08/1998 Outpatient Historical [facility] Bryson Wheeler MD NO ADDRESS ON FILE Tear of medial cartilage or meniscus of knee, current (Primary Dx) Social History Tobacco Use Types Packs/Day Years Used Date Smoking Tobacco: Never Assessed Comments Unknown Sex and Gender Information Value Date Recorded Sex Assigned at Not on file 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
--- OUTSIDE RECORDS SUMMARY | 2025-03-13 11:57 | XMS_ITS | Encounter Summary ---
Author Organization [facility] Address [address] [place] [address] Care Team Providers Care Ancillary Services Manager Name Role Phone Unavailable Primary Care Provider Unavailabl e Encounter Details Date Type Department Care Team (Latest Contact Info) Description 10/16/1998 Outpatient Historical [facility] Tyshawn Dang Jr., MD [address] [place] [address] Allergic rhinitis, cause unspecified (Primary Dx) Social History Tobacco Use Types Packs/Day Years Used Date Smoking Tobacco: Never Assessed Comments Unknown Sex and Gender Information Value Date Recorded Sex Assigned at Not on file 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
--- OUTSIDE RECORDS SUMMARY | 2025-03-13 11:57 | XMS_ITS | Encounter Summary ---
Author Organization [facility] Address [address] [place] [address] Care Team Providers Care Boatwright Name Role Phone Unavailable Primary Care Provider Unavailabl e Encounter Details Date Type Department Care Team (Latest Contact Info) Description 08/03/1998 Outpatient Historical [facility] Tyshawn Dang Jr., MD [address] [place] [address] Other and unspecified superficial injury of hip, thigh, leg, and ankle, infected (Primary Dx) Social History Tobacco Use Types Packs/Day Years Used Date Smoking Tobacco: Never Assessed Comments Unknown Sex and Gender Information Value Date Recorded Sex Assigned at Not on file 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
--- OUTSIDE RECORDS SUMMARY | 2025-03-13 11:57 | XMS_ITS | Encounter Summary ---
Author Organization [facility] Address [address] [place] [address] Care Team Providers Care Dado Operator Name Role Phone Unavailable Primary Care Provider Unavailabl e Encounter Details Date Type Department Care Team (Latest Contact Info) Description 05/28/2001 Outpatient Historical [facility] Tyshawn Dang Jr., MD [address] [place] [address] ACUTE URI NOS (Primary Dx) Social History Tobacco Use Types Packs/Day Years Used Date Smoking Tobacco: Never Assessed Comments Unknown Sex and Gender Information Value Date Recorded Sex Assigned at Not on file Legal Sex Female 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
--- OUTSIDE RECORDS SUMMARY | 2025-03-13 11:57 | XMS_ITS | Encounter Summary ---
Author Organization [facility] Address [address] [place] [address] Care Team Providers Care Marine Steam Fitter Name Role Phone Unavailable Primary Care Provider Unavailabl e Encounter Details Date Type Department Care Team (Latest Contact Info) Description 10/13/2001 Outpatient Historical [facility] Diaz Silverio MD [address] [place], [place] [id number] ALLERGIC RHINITIS NEC (Primary Dx) Social History Tobacco Use Types Packs/Day Years Used Date Smoking Tobacco: Never Assessed Comments Unknown Sex and Gender Information Value Date Recorded Sex Assigned at Not on file 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
--- OUTSIDE RECORDS SUMMARY | 2025-03-13 11:57 | XMS_ITS | Encounter Summary ---
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
--- OUTSIDE RECORDS SUMMARY | 2025-03-13 11:58 | XMS_ITS | Encounter Summary ---
Author Organization [facility] Address [address] [place] [address] Care Team Providers Care Pulp Screen Operator Name Role Phone Unavailable Primary Care Provider Unavailabl e Encounter Details Date Type Department Care Team (Latest Contact Info) Description 12/26/2000 Outpatient Historical [facility] [address] [place] [address] Kaity Ba MD NO ADDRESS ON FILE Dizziness and giddiness (Primary Dx) Social History Tobacco Use Types Packs/Day Years Used Date Smoking Tobacco: Never Assessed Comments Unknown Sex and Gender Information Value Date Recorded Sex Assigned at Not on file 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
--- OUTSIDE RECORDS SUMMARY | 2025-03-13 11:58 | XMS_ITS | Encounter Summary ---
Author Organization [facility] Address [address] [place] [address] Care Team Providers Care Nicking Machine Operator Name Role Phone Unavailable Primary Care Provider Unavailabl e Encounter Details Date Type Department Care Team (Latest Contact Info) Description 07/05/1998 Outpatient Historical [facility] Tyshawn Dang Jr., MD [address] [place] [address] Acute upper respiratory infections of unspecified site (Primary Dx); Female infertility associated with anovulation Social History Tobacco Use Types Packs/Day Years Used Date Smoking Tobacco: Never Assessed Comments Unknown Sex and Gender Information Value Date Recorded Sex Assigned at Not on file 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
--- OUTSIDE RECORDS SUMMARY | 2025-03-13 11:58 | XMS_ITS | Encounter Summary ---
Author Organization [facility] Address [address] [place] [address] Care Team Providers Care Inorganic Chemistry Professor Name Role Phone Unavailable Primary Care Provider Unavailabl e Encounter Details Date Type Department Care Team (Latest Contact Info) Description 04/07/2000 Outpatient Historical [facility] Tyshawn Dang Jr., MD [address] [place] [address] Acute sinusitis, unspecified (Primary Dx) Social History Tobacco Use Types Packs/Day Years Used Date Smoking Tobacco: Never Assessed Comments Unknown Sex and Gender Information Value Date Recorded Sex Assigned at Not on file Legal Sex Female 4:23 AM FLIGHT TEST ENGINEER Gender Identity Not on file Sexual Orientation Not on file documented as of this encounter Plan of Treatment Not on file documented as of this encounter Visit Diagnoses Diagnosis Acute sinusitis, unspecified- Primary documented in this encounter
--- OUTSIDE RECORDS SUMMARY | 2025-03-13 11:58 | XMS_ITS | Encounter Summary ---
Author Organization [facility] Address [address] [place] [address] Care Team Providers Care Customer Support Executive Name Role Phone Unavailable Primary Care Provider Unavailabl e Encounter Details Date Type Department Care Team (Latest Contact Info) Description 06/06/1998 Outpatient Historical [facility] Tyshawn Dang Jr., MD [address] [place] [address] Allergic rhinitis, cause unspecified (Primary Dx) Social History Tobacco Use Types Packs/Day Years Used Date Smoking Tobacco: Never Assessed Comments Unknown Sex and Gender Information Value Date Recorded Sex Assigned at Not on file Legal Sex Female 4:23 AM HAT BLOCK BENCH HAND Gender Identity Not on file Sexual Orientation Not on file documented as of this encounter Plan of Treatment Not on file documented as of this encounter Visit Diagnoses Diagnosis Allergic rhinitis, cause unspecified- Primary documented in this encounter
--- OUTSIDE RECORDS SUMMARY | 2025-03-13 11:58 | XMS_ITS | Encounter Summary ---
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
--- OUTSIDE RECORDS SUMMARY | 2025-03-13 11:58 | XMS_ITS | Encounter Summary ---
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
--- OUTSIDE RECORDS SUMMARY | 2025-03-13 11:58 | XMS_ITS | Encounter Summary ---
Author Organization [facility] Address [address] [place] [address] Care Team Providers Care Radiation Control Specialist Name Role Phone Unavailable Primary Care Provider Unavailabl e Encounter Details Date Type Department Care Team (Latest Contact Info) Description 06/23/2001 Outpatient Historical HIS [facility] Diaz Silverio MD [address] [place], [place] [id number] ACUTE URI NOS (Primary Dx); AFTERCARE VP SECURITY USE MEDICATN Social History Tobacco Use Types Packs/Day Years Used Date Smoking Tobacco: Never Assessed Comments Unknown Sex and Gender Information Value Date Recorded Sex Assigned at Not on file 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
--- OUTSIDE RECORDS SUMMARY | 2025-03-13 11:58 | XMS_ITS | Encounter Summary ---
Author Organization [facility] Address [address] [place] [address] Care Team Providers Care Timber Hand Name Role Phone Unavailable Primary Care Provider Unavailabl e Encounter Details Date Type Department Care Team (Latest Contact Info) Description 04/30/2000 Outpatient Historical [facility] FURNACE PACKER 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
--- OUTSIDE RECORDS SUMMARY | 2025-03-13 11:58 | XMS_ITS | Encounter Summary ---
Author Organization [facility] Address [address] [place] [address] Care Team Providers Care Quality Consultant Name Role Phone Unavailable Primary Care Provider Unavailabl e Encounter Details Date Type Department Care Team (Latest Contact Info) Description 04/30/2000 Outpatient Historical [facility] [address] [place] [phone] Guy Moise MD NO ADDRESS ON FILE Abdominal pain, unspecified site (Primary Dx) Social History Tobacco Use Types Packs/Day Years Used Date Smoking Tobacco: Never Assessed Comments Unknown Sex and Gender Information Value Date Recorded Sex Assigned at Not on file 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
--- OUTSIDE RECORDS SUMMARY | 2025-03-13 11:58 | XMS_ITS | Encounter Summary ---
Author Organization [employer] Address [address] [place] [address] Care Team Providers Care Enterprise Application Analyst Name Role Phone Unavailable Primary Care Provider Unavailabl e Encounter Details Date Type Department Care Team (Latest Contact Info) Description 07/07/1998 Outpatient Historical [facility] Tyshawn Dang Jr., MD [address] [place] [address] Allergic rhinitis, cause unspecified (Primary Dx) Social History Tobacco Use Types Packs/Day Years Used Date Smoking Tobacco: Never Assessed Comments Unknown Sex and Gender Information Value Date Recorded Sex Assigned at Not on file 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
--- OUTSIDE RECORDS SUMMARY | 2025-03-13 11:58 | XMS_ITS | Encounter Summary ---
Author Organization [facility] Address [address] [place] [address] Care Team Providers Care Booster Operator Name Role Phone Unavailable Primary Care Provider Unavailabl e Encounter Details Date Type Department Care Team (Latest Contact Info) Description 03/21/2000 Outpatient Historical [facility] Tyshawn Dang Jr., MD [address] [place] [address] Unspecified asthma(493.90) (Primary Dx) Social History Tobacco Use Types Packs/Day Years Used Date Smoking Tobacco: Never Assessed Comments Unknown Sex and Gender Information Value Date Recorded Sex Assigned at Not on file 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
--- OUTSIDE RECORDS SUMMARY | 2025-03-13 11:58 | XMS_ITS | Encounter Summary ---
Author Organization [facility] Address [address] [place] [address] Care Team Providers Care Cell Repairer Name Role Phone Unavailable Primary Care Provider Unavailabl e Encounter Details Date Type Department Care Team (Latest Contact Info) Description 04/29/2000 Outpatient Historical [facility] Rosalino Plascencia NO ADDRESS ON FILE Acute pharyngitis (Primary Dx) Social History Tobacco Use Types Packs/Day Years Used Date Smoking Tobacco: Never Assessed Comments Unknown Sex and Gender Information Value Date Recorded Sex Assigned at Not on file 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
--- OUTSIDE RECORDS SUMMARY | 2025-03-13 11:58 | XMS_ITS | Encounter Summary ---
Author Organization [facility] Address [address] [place] [address] Care Team Providers Care Pershing Missile Crewmember Name Role Phone Unavailable Primary Care Provider Unavailabl e Encounter Details Date Type Department Care Team (Latest Contact Info) Description 02/26/2000 Outpatient Historical [facility] Rosalino Plascencia NO ADDRESS ON FILE Excessive menstruation (Primary Dx) Social History Tobacco Use Types Packs/Day Years Used Date Smoking Tobacco: Never Assessed Comments Unknown Sex and Gender Information Value Date Recorded Sex Assigned at Not on file 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
--- OUTSIDE RECORDS SUMMARY | 2025-03-13 11:58 | XMS_ITS | Patient Health Record ---
Author Organization [facility] Address [address] [place] [address] Care Team Providers Care Informatics Physician Name Role Phone Dr Bebo Culver DO Primary Care Provider Carrie Butt Unavailable [phone] Florentin Rodriguez Unavailable [phone] Rachel Cesar Unavailable [phone] Reason For Referral No Information Plan Of Treatment No Information Insurance Providers Payer Name Payer Address Payer Phone Subscriber Number Group Number Insured Name Patient Relationship to Insured Coverage Start Date Coverage End Date [facility] [address] [place] MANUEL JIMENEZ [phone] [id number] Sadaf Horner Self - patient is the insured
--- OUTSIDE RECORDS SUMMARY | 2025-03-13 11:58 | XMS_ITS | Encounter Summary ---
Author Organization [facility] Address [address] [place] [address] Care Team Providers Care Industrial/Organizational Psychologist Name Role Phone Unavailable Primary Care Provider Unavailabl e Encounter Details Date Type Department Care Team (Late st Contact Info) Description 10/27/2001 Outpatient Historical [facility] OBMARY KATE-Mushtaq Blankenshipnn Ildefonso [address] [place] [address] Jade Garcia MD [address] [facility] [address] [place] [address] Gynecologic examination (Primary Dx) Social History Tobacco Use Types Packs/Day Years Used Date Smoking Tobacco: Never Assessed Comments Unknown Sex and Gender Information Value Date Recorded Sex Assigned at Not on file 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
--- OUTSIDE RECORDS SUMMARY | 2025-03-13 11:58 | XMS_ITS | Encounter Summary ---
Author Organization [facility] Address [address] [place] [address] Care Team Providers Care Industrial Photographer Name Role Phone Unavailable Primary Care Provider Unavailabl e Encounter Details Date Type Department Care Team (Latest Contact Info) Description 11/25/2001 Outpatient Historical [facility] Tyshawn Dang Jr., MD [address] [place] [address] SACROILIITIS NEC (Primary Dx) Social History Tobacco Use Types Packs/Day Years Used Date Smoking Tobacco: Never Assessed Comments Unknown Sex and Gender Information Value Date Recorded Sex Assigned at Not on file 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
--- OUTSIDE RECORDS SUMMARY | 2025-03-13 11:58 | XMS_ITS | Encounter Summary ---
Author Organization [facility] Address [address] [place] [address] Care Team Providers Care Lesson Instructor Name Role Phone Unavailable Primary Care Provider Unavailabl e Encounter Details Date Type Department Care Team (Latest Contact Info) Description 06/25/2000 Outpatient Historical [facility] [address] [place] [address] Tom Anand MD NO ADDRESS ON FILE Cough (Primary Dx) Social History Tobacco Use Types Packs/Day Years Used Date Smoking Tobacco: Never Assessed Comments Unknown Sex and Gender Information Value Date Recorded Sex Assigned at Not on file 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
--- OUTSIDE RECORDS SUMMARY | 2025-03-13 11:58 | XMS_ITS | Encounter Summary ---
Author Organization [facility] Address [address] [place] [address] Care Team Providers Care Emergency Response Technician Name Role Phone Unavailable Primary Care Provider Unavailabl e Encounter Details Date Type Department Care Team (Late st Contact Info) Description 10/23/2000 Outpatient Historical [facility] OBMARY KATE-Landin Broome Ildefonso [address] [place] [address] Jade Garcia MD [address] [facility] [place] [address] Routine medical exam (Primary Dx); Gynecologic examination Social History Tobacco Use Types Packs/Day Years Used Date Smoking Tobacco: Never Assessed Comments Unknown Sex and Gender Information Value Date Recorded Sex Assigned at Not on file 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
--- OUTSIDE RECORDS SUMMARY | 2025-03-13 11:58 | XMS_ITS | Encounter Summary ---
Author Organization [facility] Address [address] [place] [address] Care Team Providers Care Pharmacognosy Teacher Name Role Phone Unavailable Primary Care Provider Unavailabl e Encounter Details Date Type Department Care Team (Latest Contact Info) Description 05/30/2000 Outpatient Historical [facility] VEHICLE DETAILER 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
--- OUTSIDE RECORDS SUMMARY | 2025-03-13 11:58 | XMS_ITS | Encounter Summary ---
Author Organization [facility] Address [address] [place] [address] Care Team Providers Care Rehabilitation Director Name Role Phone Unavailable Primary Care Provider Unavailabl e Encounter Details Date Type Department Care Team (Latest Contact Info) Description 07/03/1998 Outpatient Historical HIS [facility] Rosalino Plascencia NO ADDRESS ON FILE Acute upper respiratory infections of unspecified site (Primary Dx) Social History Tobacco Use Types Packs/Day Years Used Date Smoking Tobacco: Never Assessed Comments Unknown Sex and Gender Information Value Date Recorded Sex Assigned at Not on file 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
--- OUTSIDE RECORDS SUMMARY | 2025-03-13 11:58 | XMS_ITS | Encounter Summary ---
Author Organization [facility] Address [address] [place] [address] Care Team Providers Care Manager Intranet Name Role Phone Unavailable Primary Care Provider Unavailabl e Encounter Details Date Type Department Care Team (Latest Contact Info) Description 04/30/2000 Outpatient Historical [facility] Fran Fajardo [address] [place] [address] Guy Moise MD NO ADDRESS ON FILE Unspecified symptom associated with female genital organs (Primary Dx) Social History Tobacco Use Types Packs/Day Years Used Date Smoking Tobacco: Never Assessed Comments Unknown Sex and Gender Information Value Date Recorded Sex Assigned at Not on file Legal Sex Female 4:23 AM R D INTERNSHIP Gender Identity Not on file Sexual Orientation Not on file documented as of this encounter Plan of Treatment Not on file documented as of this encounter Visit Diagnoses Diagnosis Unspecified symptom associated with female genital organs- Primary documented in this encounter
--- OUTSIDE RECORDS SUMMARY | 2025-03-13 11:58 | XMS_ITS | Encounter Summary ---
Author Organization [employer] Address [address] [place] [address] Care Team Providers Care Secretary Specialist Name Role Phone Unavailable Primary Care Provider Unavailabl e Encounter Details Date Type Department Care Team (Latest Contact Info) Description 08/11/1998 Outpatient Historical [facility] Bryson Wheeler MD NO ADDRESS ON FILE Pain in joint, lower leg (Primary Dx) Social History Tobacco Use Types Packs/Day Years Used Date Smoking Tobacco: Never Assessed Comments Unknown Sex and Gender Information Value Date Recorded Sex Assigned at Not on file 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
--- OUTSIDE RECORDS SUMMARY | 2025-03-13 11:58 | XMS_ITS | Encounter Summary ---
Author Organization [facility] Address [address] [place] [address] Care Team Providers Care Hide Inspector Name Role Phone Unavailable Primary Care Provider Unavailabl e Encounter Details Date Type Department Care Team (Latest Contact Info) Description 06/25/2000 Outpatient Historical [facility] Tom Anand MD NO ADDRESS ON FILE Other and unspecified noninfectious gastroenteritis and colitis(558.9) (Primary Dx); Fever and other physiologic disturbances of temperature regulation; Cough Social History Tobacco Use Types Packs/Day Years Used Date Smoking Tobacco: Never Assessed Comments Unknown Sex and Gender Information Value Date Recorded Sex Assigned at Not on file 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
--- OUTSIDE RECORDS SUMMARY | 2025-03-13 11:58 | XMS_ITS | Encounter Summary ---
Author Organization [facility] Address [address] [place] [address] Care Team Providers Care Hourly Caregiver Name Role Phone Unavailable Primary Care Provider Unavailabl e Encounter Details Date Type Department Care Team (Latest Contact Info) Description 02/27/2000 Outpatient Historical [facility] EQUALIZER OPERATOR 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
--- OUTSIDE RECORDS SUMMARY | 2025-03-13 11:58 | XMS_ITS | Encounter Summary ---
Author Organization [facility] Address [address] [place] [address] Care Team Providers Care Batch Or Continuous Still Operator Name Role Phone Unavailable Primary Care Provider Unavailabl e Encounter Details Date Type Department Care Team (Latest Contact Info) Description 06/30/2001 Outpatient Historical [facility] Diaz Silverio MD [address], [place] [address] ACUTE PHARYNGITIS (Primary Dx) Social History Tobacco Use Types Packs/Day Years Used Date Smoking Tobacco: Never Assessed Comments Unknown Sex and Gender Information Value Date Recorded Sex Assigned at Not on file 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
--- OUTSIDE RECORDS SUMMARY | 2025-03-13 11:58 | XMS_ITS | Encounter Summary ---
Author Organization [facility] Address [address] [place] [address] Care Team Providers Care Generating Station Mechanic Name Role Phone Unavailable Primary Care Provider Unavailabl e Encounter Details Date Type Department Care Team (Latest Contact Info) Description 12/20/1999 Outpatient Historical [facility] Tyshawn Dang Jr., MD [address] [place] [address] Acute pharyngitis (Primary Dx) Social History Tobacco Use Types Packs/Day Years Used Date Smoking Tobacco: Never Assessed Comments Unknown Sex and Gender Information Value Date Recorded Sex Assigned at Not on file Legal Sex Female 4:23 AM EARLY CHILDHOOD COORDINATOR Gender Identity Not on file Sexual Orientation Not on file documented as of this encounter Plan of Treatment Not on file documented as of this encounter Visit Diagnoses Diagnosis Acute pharyngitis- Primary documented in this encounter
--- OUTSIDE RECORDS SUMMARY | 2025-03-13 11:58 | XMS_ITS | Encounter Summary ---
Author Organization 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
--- OUTSIDE RECORDS SUMMARY | 2025-03-13 11:58 | XMS_ITS | Encounter Summary ---
Author Organization [facility] Address [address] [place] [address] Care Team Providers Care Toe Pounder Name Role Phone Unavailable Primary Care Provider Unavailabl e Encounter Details Date Type Department Care Team (Latest Contact Info) Description 03/20/2000 Outpatient Historical [facility] Tyshawn Dang Jr., MD [address] [place] [address] Other diseases of trachea and bronchus, not elsewhere classified (Primary Dx) Social History Tobacco Use Types Packs/Day Years Used Date Smoking Tobacco: Never Assessed Comments Unknown Sex and Gender Information Value Date Recorded Sex Assigned at Not on file Legal Sex Female 4:23 AM INDIAN NANNY Gender Identity Not on file Sexual Orientation Not on file documented as of this encounter Plan of Treatment Not on file documented as of this encounter Visit Diagnoses Diagnosis Other diseases of trachea and bronchus, not elsewhere classified- Primary documented in this encounter
--- OUTSIDE RECORDS SUMMARY | 2025-03-13 11:58 | XMS_ITS | Encounter Summary ---
Author Organization [facility] Address [address] [place] [address] Care Team Providers Care Centerless Grinding Machine Adjuster Name Role Phone Unavailable Primary Care Provider Unavailabl e Encounter Details Date Type Department Care Team (Latest Contact Info) Description 04/09/2000 Outpatient Historical [facility] Rosalino Plascencia NO ADDRESS ON FILE Other diseases of trachea and bronchus, not elsewhere classified (Primary Dx) Social History Tobacco Use Types Packs/Day Years Used Date Smoking Tobacco: Never Assessed Comments Unknown Sex and Gender Information Value Date Recorded Sex Assigned at Not on file 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
--- OUTSIDE RECORDS SUMMARY | 2025-03-13 11:59 | XMS_ITS | Encounter Summary ---
Author Organization [email or web address] Address [address] [place] [address] Care Team Providers Care Dump Grader Name Role Phone Unavailable Primary Care Provider Unavailabl e Encounter Details Date Type Department Care Team (Latest Contact Info) Description 03/08/1999 Outpatient Historical [facility] Tyshawn Dang Jr., MD [address] [place] [address] Allergic rhinitis, cause unspecified (Primary Dx) Social History Tobacco Use Types Packs/Day Years Used Date Smoking Tobacco: Never Assessed Comments Unknown Sex and Gender Information Value Date Recorded Sex Assigned at Not on file Legal Sex Female 4:23 AM DIRECTOR PRODUCT SAFETY Gender Identity Not on file Sexual Orientation Not on file documented as of this encounter Plan of Treatment Not on file documented as of this encounter Visit Diagnoses Diagnosis Allergic rhinitis, cause unspecified- Primary documented in this encounter
--- OUTSIDE RECORDS SUMMARY | 2025-03-13 11:59 | XMS_ITS | Encounter Summary ---
Author Organization [facility] Address [address] [place] [address] Care Team Providers Care Outboard Motor Assembler Name Role Phone Unavailable Primary Care Provider Unavailabl e Encounter Details Date Type Department Care Team (Latest Contact Info) Description 10/30/1998 Outpatient Historical [facility] Tyshawn Dang Jr., MD [address] [place] [address] Allergic rhinitis, cause unspecified (Primary Dx) Social History Tobacco Use Types Packs/Day Years Used Date Smoking Tobacco: Never Assessed Comments Unknown Sex and Gender Information Value Date Recorded Sex Assigned at Not on file Legal Sex Female 4:23 AM 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
--- OUTSIDE RECORDS SUMMARY | 2025-03-13 11:59 | XMS_ITS | Encounter Summary ---
Author Organization [facility] Address [address] [place] [address] Care Team Providers Care Edger Hand Name Role Phone Unavailable Primary Care Provider Unavailabl e Encounter Details Date Type Department Care Team (Latest Contact Info) Description 11/13/1998 Outpatient Historical [facility] Tyshawn Dang Jr., MD [address] [place] [address] Allergic rhinitis, cause unspecified (Primary Dx) Social History Tobacco Use Types Packs/Day Years Used Date Smoking Tobacco: Never Assessed Comments Unknown Sex and Gender Information Value Date Recorded Sex Assigned at Not on file Legal Sex Female 4:23 AM PRODUCT SUPPORT SALES REPRESENTATIVE Gender Identity Not on file Sexual Orientation Not on file documented as of this encounter Plan of Treatment Not on file documented as of this encounter Visit Diagnoses Diagnosis Allergic rhinitis, cause unspecified- Primary documented in this encounter
--- OUTSIDE RECORDS SUMMARY | 2025-03-13 11:59 | XMS_ITS | Encounter Summary ---
Author Organization [facility] Address [address] [place] [address] Care Team Providers Care Home Health Provider Name Role Phone Unavailable Primary Care Provider Unavailabl e Encounter Details Date Type Department Care Team (Latest Contact Info) Description 11/22/1997 Outpatient Historical [facility]- [place] [address] [place] [address] Pawan Yo MD NO ADDRESS ON FILE Allergic rhinitis, cause unspecified (Primary Dx); Other chronic allergic conjunctivitis Social History Tobacco Use Types Packs/Day Years Used Date Smoking Tobacco: Never Assessed Comments Unknown Sex and Gender Information Value Date Recorded Sex Assigned at Not on file Legal Sex Female 4:23 AM PRODUCTION LINE TECHNICIAN Gender Identity Not on file Sexual Orientation Not on file documented as of this encounter Plan of Treatment Not on file documented as of this encounter Visit Diagnoses Diagnosis Allergic rhinitis, cause unspecified- Primary Other chronic allergic conjunctivitis documented in this encounter
--- OUTSIDE RECORDS SUMMARY | 2025-03-13 11:59 | XMS_ITS | Encounter Summary ---
Author Organization [facility] Address [address] [place] [address] Care Team Providers Care Manager Embalmer Funeral Director Name Role Phone Unavailable Primary Care Provider Unavailabl e Encounter Details Date Type Department Care Team (Latest Contact Info) Description 03/10/1998 Outpatient Historical [facility] Marni UNGER, Napoleon Liriano MD NO ADDRESS ON FILE Other and unspecified derangement of medial meniscus (Primary Dx) Social History Tobacco Use Types Packs/Day Years Used Date Smoking Tobacco: Never Assessed Comments Unknown Sex and Gender Information Value Date Recorded Sex Assigned at Not on file Legal Sex Female 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
--- OUTSIDE RECORDS SUMMARY | 2025-03-13 11:59 | XMS_ITS | Encounter Summary ---
Author Organization [facility] Address [address] [place] [address] Care Team Providers Care Landfill Gas Collection System Operator Name Role Phone Unavailable Primary Care Provider Unavailabl e Encounter Details Date Type Department Care Team (Latest Contact Info) Description 04/12/1998 Outpatient Historical [facility] Tyshawn Dang Jr., MD [address] [place] [address] Allergic rhinitis, cause unspecified (Primary Dx) Social History Tobacco Use Types Packs/Day Years Used Date Smoking Tobacco: Never Assessed Comments Unknown Sex and Gender Information Value Date Recorded Sex Assigned at Not on file Legal Sex Female 4:23 AM BIOLOGICAL LAB TECHNICIAN Gender Identity Not on file Sexual Orientation Not on file documented as of this encounter Plan of Treatment Not on file documented as of this encounter Visit Diagnoses Diagnosis Allergic rhinitis, cause unspecified- Primary documented in this encounter
--- OUTSIDE RECORDS SUMMARY | 2025-03-13 11:59 | XMS_ITS | Encounter Summary ---
Author Organization [facility] Address [address] [place] [address] Care Team Providers Care Vice President Talent Management Name Role Phone Unavailable Primary Care Provider Unavailabl e Encounter Details Date Type Department Care Team (Latest Contact Info) Description 01/02/1999 Outpatient Historical [facility] Rosalino Plascencia NO ADDRESS ON FILE Acute pharyngitis (Primary Dx) Social History Tobacco Use Types Packs/Day Years Used Date Smoking Tobacco: Never Assessed Comments Unknown Sex and Gender Information Value Date Recorded Sex Assigned at Not on file Legal Sex Female 4:23 AM DIRECT SALES REPRESENTATIVE Gender Identity Not on file Sexual Orientation Not on file documented as of this encounter Plan of Treatment Not on file documented as of this encounter Visit Diagnoses Diagnosis Acute pharyngitis- Primary documented in this encounter
--- OUTSIDE RECORDS SUMMARY | 2025-03-13 11:59 | XMS_ITS | Encounter Summary ---
Author Organization [facility] Address [address] [place] [address] Care Team Providers Care Maintenance Supervisor Mechanical Name Role Phone Unavailable Primary Care Provider Unavailabl e Encounter Details Date Type Department Care Team (Latest Contact Info) Description 11/26/1999 Outpatient Historical [facility] Tyshawn Dang Jr., MD [address] [place] [address] Molluscum contagiosum (Primary Dx) Social History Tobacco Use Types Packs/Day Years Used Date Smoking Tobacco: Never Assessed Comments Unknown Sex and Gender Information Value Date Recorded Sex Assigned at Not on file Legal Sex Female 4:23 AM SWING RIDE OPERATOR Gender Identity Not on file Sexual Orientation Not on file documented as of this encounter Plan of Treatment Not on file documented as of this encounter Visit Diagnoses Diagnosis Molluscum contagiosum- Primary documented in this encounter
--- OUTSIDE RECORDS SUMMARY | 2025-03-13 11:59 | XMS_ITS | Encounter Summary ---
Author Organization [facility] Address [address] [place] [address] Care Team Providers Care Fern Cutter Name Role Phone Unavailable Primary Care Provider Unavailabl e Encounter Details Date Type Department Care Team (Latest Contact Info) Description 09/18/1999 Outpatient Historical [facility] OBMARY KATEMushtaq Blankenshipnn Biggs [address] [place] [address] Jade Garcia MD [address] [facility] [address] [place] [address] Excessive menstruation (Primary Dx) Social History Tobacco Use Types Packs/Day Years Used Date Smoking Tobacco: Never Assessed Comments Unknown Sex and Gender Information Value Date Recorded Sex Assigned at Not on file Legal Sex Female 4:23 AM CONSTRUCTION ADMINISTRATOR Gender Identity Not on file Sexual Orientation Not on file documented as of this encounter Plan of Treatment Not on file documented as of this encounter Visit Diagnoses Diagnosis Excessive menstruation- Primary Excessive or frequent menstruation documented in this encounter
--- OUTSIDE RECORDS SUMMARY | 2025-03-13 11:59 | XMS_ITS | Encounter Summary ---
Author Organization [facility] Address [address] [place] [address] Care Team Providers Care Pipe Washer Name Role Phone Unavailable Primary Care Provider Unavailabl e Encounter Details Date Type Department Care Team (Latest Contact Info) Description 01/10/1999 Outpatient Historical [facility] Tyshawn Dang Jr., MD [address] [place] [address] Allergic rhinitis, cause unspecified (Primary Dx) Social History Tobacco Use Types Packs/Day Years Used Date Smoking Tobacco: Never Assessed Comments Unknown Sex and Gender Information Value Date Recorded Sex Assigned at Not on file Legal Sex Female 4:23 AM OFFICE SERVICE COORDINATOR Gender Identity Not on file Sexual Orientation Not on file documented as of this encounter Plan of Treatment Not on file documented as of this encounter Visit Diagnoses Diagnosis Allergic rhinitis, cause unspecified- Primary documented in this encounter
--- OUTSIDE RECORDS SUMMARY | 2025-03-13 11:59 | XMS_ITS | Encounter Summary ---
Author Organization [facility] Address [address] [place] [address] Care Team Providers Care Dietitian Helper Name Role Phone Unavailable Primary Care Provider Unavailabl e Encounter Details Date Type Department Care Team (Latest Contact Info) Description 12/16/2001 Outpatient Historical [facility] Tyshawn Dang Jr., MD [address] [place] [address] SACROILIITIS NEC (Primary Dx) Social History Tobacco Use Types Packs/Day Years Used Date Smoking Tobacco: Never Assessed Comments Unknown Sex and Gender Information Value Date Recorded Sex Assigned at Not on file Legal Sex Female 4:23 AM ASSISTANT CENTER DIRECTOR Gender Identity Not on file Sexual Orientation Not on file documented as of this encounter Plan of Treatment Not on file documented as of this encounter Visit Diagnoses Diagnosis Sacroiliitis, not elsewhere classified- Primary documented in this encounter
--- OUTSIDE RECORDS SUMMARY | 2025-03-13 11:59 | XMS_ITS | Encounter Summary ---
Author Organization [employer] [facility] Address [address] [place] [address] Care Team Providers Care Residence Counselor Name Role Phone Unavailable Primary Care Provider Unavailabl e Encounter Details Date Type Department Care Team (Latest Contact Info) Description 12/23/2001 Outpatient Historical [facility] Diaz Silverio MD [address] [place], [place] [id number] INSECT BITE NEC (Primary Dx); VENOMOUS BITE/STING NOS Social History Tobacco Use Types Packs/Day Years Used Date Smoking Tobacco: Never Assessed Comments Unknown Sex and Gender Information Value Date Recorded Sex Assigned at Not on file Legal Sex Female 4:23 AM AIRPLANE REFUELER Gender Identity Not on file Sexual Orientation Not on file documented as of this encounter Plan of Treatment Not on file documented as of this encounter Visit Diagnoses Diagnosis Other, multiple, and unspecified sites, insect bite, nonvenomous, without mention of infection(919.4)- Primary Other, multiple, and unspecified sites, insect bite, nonvenomous, without mention of infection Poisoning and toxic reactions caused by unspecified animals and plants(E905.9) Poisoning and toxic reactions caused by unspecified animals and plants documented in this encounter"
--- OUTSIDE RECORDS SUMMARY | 2025-03-13 11:59 | XMS_ITS | Encounter Summary ---
Author Organization [facility] Address [address] [place] [address] Care Team Providers Care Ball Winder Name Role Phone Unavailable Primary Care Provider Unavailabl e Encounter Details Date Type Department Care Team (Latest Contact Info) Description 12/13/1998 Outpatient Historical [facility] Marni UNGER, Napoleon Liriano MD NO ADDRESS ON FILE Pain in joint, lower leg (Primary Dx) Social History Tobacco Use Types Packs/Day Years Used Date Smoking Tobacco: Never Assessed Comments Unknown Sex and Gender Information Value Date Recorded Sex Assigned at Not on file Legal Sex Female 4:23 AM HAND SLITTER Gender Identity Not on file Sexual Orientation Not on file documented as of this encounter Plan of Treatment Not on file documented as of this encounter Visit Diagnoses Diagnosis Pain in joint, lower leg- Primary documented in this encounter
--- OUTSIDE RECORDS SUMMARY | 2025-03-13 11:59 | XMS_ITS | Encounter Summary ---
Author Organization [facility] Address [address] [place] [address] Care Team Providers Care Plastic Press Molder Name Role Phone Unavailable Primary Care Provider Unavailabl e Encounter Details Date Type Department Care Team (Latest Contact Info) Description 07/17/1999 Outpatient Historical [facility] Rosalino Plascencia NO ADDRESS ON FILE Acute pharyngitis (Primary Dx) Social History Tobacco Use Types Packs/Day Years Used Date Smoking Tobacco: Never Assessed Comments Unknown Sex and Gender Information Value Date Recorded Sex Assigned at Not on file Legal Sex Female 4:23 AM TAXI DANCER Gender Identity Not on file Sexual Orientation Not on file documented as of this encounter Plan of Treatment Not on file documented as of this encounter Visit Diagnoses Diagnosis Acute pharyngitis- Primary documented in this encounter
--- OUTSIDE RECORDS SUMMARY | 2025-03-13 11:59 | XMS_ITS | Encounter Summary ---
Author Organization [facility] Address [address] [place] [address] Care Team Providers Care Licensed Dispensing Optician Name Role Phone Unavailable Primary Care Provider Unavailabl e Encounter Details Date Type Department Care Team (Latest Contact Info) Description 09/18/1999 Outpatient Historical [facility] [address] [place] [address] Jade Garcia MD [address] [facility] [address] [place] [address] Irregular menstruation (Primary Dx) Social History Tobacco Use Types Packs/Day Years Used Date Smoking Tobacco: Never Assessed Comments Unknown Sex and Gender Information Value Date Recorded Sex Assigned at Not on file Legal Sex Female 4:23 AM POWER TRANSFORMER REPAIRER Gender Identity Not on file Sexual Orientation Not on file documented as of this encounter Plan of Treatment Not on file documented as of this encounter Visit Diagnoses Diagnosis Irregular menstruation- Primary Irregular menstrual cycle documented in this encounter
--- OUTSIDE RECORDS SUMMARY | 2025-03-13 11:59 | XMS_ITS | Encounter Summary ---
Author Organization [facility] Address [address] [place] [address] Care Team Providers Care Replenishment Merchandising Associate Name Role Phone Unavailable Primary Care Provider Unavailabl e Encounter Details Date Type Department Care Team (Latest Contact Info) Description 04/04/1999 Outpatient Historical [facility] Tyshawn Dang Jr., MD [address] [place] [address] Allergic rhinitis, cause unspecified (Primary Dx) Social History Tobacco Use Types Packs/Day Years Used Date Smoking Tobacco: Never Assessed Comments Unknown Sex and Gender Information Value Date Recorded Sex Assigned at Not on file Legal Sex Female 4:23 AM LABORER GENERAL Gender Identity Not on file Sexual Orientation Not on file documented as of this encounter Plan of Treatment Not on file documented as of this encounter Visit Diagnoses Diagnosis Allergic rhinitis, cause unspecified- Primary documented in this encounter
--- OUTSIDE RECORDS SUMMARY | 2025-03-13 11:59 | XMS_ITS | Encounter Summary ---
Author Organization [facility] Address [address] [place] [address] Care Team Providers Care Hot Air Furnace Installer Repairer Name Role Phone Unavailable Primary Care Provider Unavailabl e Encounter Details Date Type Department Care Team (Latest Contact Info) Description 05/04/1999 Outpatient Historical [facility] Allergy and Asthma- [place] [address] [place] [address] Pawan Yo MD NO ADDRESS ON FILE Allergic rhinitis, cause unspecified (Primary Dx); Nasal/sinus dis NEC; Chronic rhinitis; Other chronic allergic conjunctivitis Social History Tobacco Use Types Packs/Day Years Used Date Smoking Tobacco: Never Assessed Comments Unknown Sex and Gender Information Value Date Recorded Sex Assigned at Not on file Legal Sex Female 4:23 AM INSTRUMENT DESIGNER Gender Identity Not on file Sexual Orientation Not on file documented as of this encounter Plan of Treatment Not on file documented as of this encounter Visit Diagnoses Diagnosis Allergic rhinitis, cause unspecified- Primary Nasal/sinus dis NEC Other diseases of nasal cavity and sinuses Chronic rhinitis Other chronic allergic conjunctivitis documented in this encounter
--- OUTSIDE RECORDS SUMMARY | 2025-03-13 11:59 | XMS_ITS | Encounter Summary ---
Author Organization [facility] Address [address] [place] [address] Care Team Providers Care Human Resources Training Manager Name Role Phone Unavailable Primary Care Provider Unavailabl e Encounter Details Date Type Department Care Team (Latest Contact Info) Description 04/09/1999 Outpatient Historical [facility] Tyshawn Dang Jr., MD [address] [place] [address] Acute upper respiratory infections of unspecified site (Primary Dx) Social History Tobacco Use Types Packs/Day Years Used Date Smoking Tobacco: Never Assessed Comments Unknown Sex and Gender Information Value Date Recorded Sex Assigned at Not on file Legal Sex Female 4:23 AM SALON RECEPTIONIST Gender Identity Not on file Sexual Orientation Not on file documented as of this encounter Plan of Treatment Not on file documented as of this encounter Visit Diagnoses Diagnosis Acute upper respiratory infections of unspecified site- Primary documented in this encounter
--- OUTSIDE RECORDS SUMMARY | 2025-03-13 11:59 | XMS_ITS | Encounter Summary ---
Author Organization [facility] Address [address] [place] [address] Care Team Providers Care Customs Examiner Name Role Phone Unavailable Primary Care Provider Unavailabl e Encounter Details Date Type Department Care Team (Latest Contact Info) Description 03/10/2002 Outpatient Historical [facility] Tyshawn Dang Jr., MD [address] [place] [address] ALLERGIC RHINITIS NEC (Primary Dx); ACNE NEC Social History Tobacco Use Types Packs/Day Years Used Date Smoking Tobacco: Never Assessed Comments Unknown Sex and Gender Information Value Date Recorded Sex Assigned at Not on file Legal Sex Female 4:23 AM FIRE POT OPERATOR Gender Identity Not on file Sexual Orientation Not on file documented as of this encounter Plan of Treatment Not on file documented as of this encounter Visit Diagnoses Diagnosis Allergic rhinitis due to other allergen- Primary Other acne documented in this encounter
--- OUTSIDE RECORDS SUMMARY | 2025-03-13 11:59 | XMS_ITS | Encounter Summary ---
Author Organization [facility] Address [address] [place] [address] Care Team Providers Care Track Moving Machine Operator Name Role Phone Unavailable Primary Care Provider Unavailabl e Encounter Details Date Type Department Care Team (Late st Contact Info) Description 09/18/1999 Outpatient Historical [facility] Social History Tobacco Use Types Packs/Day Years Used Date Smoking Tobacco: Never Assessed Comments Unknown Sex and Gender Information Value Date Recorded Sex Assigned at Not on file Legal Sex Female 4:23 AM HEALTH COMMUNICATIONS SPECIALIST Gender Identity Not on file Sexual Orientation Not on file documented as of this encounter Plan of Treatment Not on file documented as of this encounter Visit Diagnoses Not on filedocumented in this encounter
--- OUTSIDE RECORDS SUMMARY | 2025-03-13 11:59 | XMS_ITS | Encounter Summary ---
Author Organization [facility] Address [address] [place] [address] Care Team Providers Care Induction Heat Treater Name Role Phone Unavailable Primary Care Provider Unavailabl e Encounter Details Date Type Department Care Team (Late st Contact Info) Description 11/04/2002 Outpatient Historical [facility] FY06 Jade Garcia MD [address] [facility], [facility] [address] [place] [address] Social History Tobacco Use Types Packs/Day Years Used Date Smoking Tobacco: Never Assessed Comments Unknown Sex and Gender Information Value Date Recorded Sex Assigned at Not on file Legal Sex Female 4:23 AM CLAM BED WORKER Gender Identity Not on file Sexual Orientation Not on file documented as of this encounter Plan of Treatment Not on file documented as of this encounter Visit Diagnoses Not on filedocumented in this encounter
--- OUTSIDE RECORDS SUMMARY | 2025-03-13 11:59 | XMS_ITS | Encounter Summary ---
Author Organization [facility] Address [address] [place] [address] Care Team Providers Care Crime Scene Analyst Name Role Phone Unavailable Primary Care Provider Unavailabl e Encounter Details Date Type Department Care Team (Latest Contact Info) Description 05/11/1998 Outpatient Historical [facility] Tyshawn Dang Jr., MD [address] [place] [address] Allergic rhinitis, cause unspecified (Primary Dx) Social History Tobacco Use Types Packs/Day Years Used Date Smoking Tobacco: Never Assessed Comments Unknown Sex and Gender Information Value Date Recorded Sex Assigned at Not on file Legal Sex Female 4:23 AM HOME HEALTH CLINICIAN Gender Identity Not on file Sexual Orientation Not on file documented as of this encounter Plan of Treatment Not on file documented as of this encounter Visit Diagnoses Diagnosis Allergic rhinitis, cause unspecified- Primary documented in this encounter
--- OUTSIDE RECORDS SUMMARY | 2025-03-13 11:59 | XMS_ITS | Encounter Summary ---
Author Organization [facility] Address [address] [place] [address] Care Team Providers Care Station Examiner Name Role Phone Unavailable Primary Care Provider Unavailabl e Encounter Details Date Type Department Care Team (Latest Contact Info) Description 12/14/1998 Outpatient Historical [facility] Tyshawn Dang Jr., MD [address] [place] [address] Allergic rhinitis, cause unspecified (Primary Dx) Social History Tobacco Use Types Packs/Day Years Used Date Smoking Tobacco: Never Assessed Comments Unknown Sex and Gender Information Value Date Recorded Sex Assigned at Not on file Legal Sex Female 4:23 AM LAST MARKER Gender Identity Not on file Sexual Orientation Not on file documented as of this encounter Plan of Treatment Not on file documented as of this encounter Visit Diagnoses Diagnosis Allergic rhinitis, cause unspecified- Primary documented in this encounter
--- OUTSIDE RECORDS SUMMARY | 2025-03-13 11:59 | XMS_ITS | Encounter Summary ---
Author Organization [facility] Address [address] [place] [address] Care Team Providers Care Evaporator Operator Name Role Phone Unavailable Primary Care Provider Unavailabl e Encounter Details Date Type Department Care Team (Latest Contact Info) Description 01/20/2002 Outpatient Historical [facility] Diaz Silverio MD [address], [place] [id number] OTITIS MEDIA NOS (Primary Dx) Social History Tobacco Use Types Packs/Day Years Used Date Smoking Tobacco: Never Assessed Comments Unknown Sex and Gender Information Value Date Recorded Sex Assigned at Not on file Legal Sex Female 4:23 AM CRIME SCENE INVESTIGATOR Gender Identity Not on file Sexual Orientation Not on file documented as of this encounter Plan of Treatment Not on file documented as of this encounter Visit Diagnoses Diagnosis Unspecified otitis media- Primary documented in this encounter
--- OUTSIDE RECORDS SUMMARY | 2025-03-13 11:59 | XMS_ITS | Encounter Summary ---
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
--- OUTSIDE RECORDS SUMMARY | 2025-03-13 11:59 | XMS_ITS | Encounter Summary ---
Author Organization [facility] Address [address] [place] [address] Care Team Providers Care Locomotive Observer Name Role Phone Unavailable Primary Care Provider Unavailabl e Encounter Details Date Type Department Care Team (Latest Contact Info) Description 05/16/1999 Outpatient Historical [facility] Tyshawn Dang Jr., MD [address] [place] [address] Popliteal synovial cyst (Primary Dx); Closed dislocation of knee, unspecified part; General counseling for prescription of oral contraceptives Social History Tobacco Use Types Packs/Day Years Used Date Smoking Tobacco: Never Assessed Comments Unknown Sex and Gender Information Value Date Recorded Sex Assigned at Not on file 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
--- OUTSIDE RECORDS SUMMARY | 2025-03-13 11:59 | XMS_ITS | Encounter Summary ---
Author Organization [facility] Address [address] [place] [address] Care Team Providers Care Elevator Constructor Supervisor Name Role Phone Unavailable Primary Care Provider Unavailabl e Encounter Details Date Type Department Care Team (Late st Contact Info) Description 11/04/2002 Outpatient Historical [facility] [address] [place] [address] Jade Garcia MD [address] [facility] [place] [address] Routine medical exam (Primary Dx); Gynecologic examination Social History Tobacco Use Types Packs/Day Years Used Date Smoking Tobacco: Never Assessed Comments Unknown Sex and Gender Information Value Date Recorded Sex Assigned at Not on file 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
--- OUTSIDE RECORDS SUMMARY | 2025-03-13 11:59 | XMS_ITS | Clinical Summary ---
Author Organization [facility] Address [facility] [place] [address] Care Team Providers Care Steel Roller Name Role Phone Unavailable Primary Care Provider Unavailabl e Allergies Active Allergy Reactions Criticality Noted Date Comments Codeine Swelling High 11/17/2019 Penicillins Rash Low 11/17/2019 Medications buPROPion (WELLBUTRIN) 75 mg tablet Take 75 mg by mouth daily. Active cholecalciferol 1,250 mcg (50,000 unit) Capsule Take 50,000 Units by mouth daily. Active ferrous sulfate 325 mg (65 mg iron) tablet Take 325 mg by mouth daily. Active chlorthalidone (HYGROTON) 25 mg tablet Take 1 Tablet (25 mg) by mouth daily. 30 Tablet 11 11/17/2019 Active lisinopriL (PRINIVIL) 10 mg tablet Take 1 Tablet (10 mg) by mouth daily. 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 Gender Identity Not on file Sexual Orientation Not on file Last Filed Vital Signs Vital Sign Reading Time Taken Comments Blood Pressure 178/106 11/17/2019 3:48 PM CDT Pulse 94 11/17/2019 3:48 PM CDT Temperature - - Respiratory Rate - - Oxygen Saturation - - Inhaled Oxygen Concentration - - Weight 75.1 kg (165 lb 9.6 oz) 11/17/2019 3:48 P M CDT Height 160 cm (5' 3 ) 11/17/2019 3:48 PM CDT Body Mass Index 29.33 11/17/2019 3:48 PM CDT Plan of Treatment Health Maintenance Due Date Last Done Comments DTAP/TDAP/TD VACCINES (2 - Tdap) 01/25/1999 01/24/19 99 HEPATITIS B VACCINES (1 of 3 - 19+ 3-dose series) 08/18/2002 HPV/Cotest (21-29) 08/18/2004 HPV VACCINES (1 - 3-dose SCD M series) 08/18/2010 CERVICAL CANCER SCREENING 08/18/2013 HPV/Cotest (30-65) 08/18/2013 PAP SMEAR 08/18/2013 11/04/2002, 08/2001, 10/23/2000, Additional history exists BREAST CANCER SCREENING 2023 INFLUENZA VACCINE (#1) 2024 Insurance [facility]
--- NOTE | 2025-03-13 12:08 | W.ED.NAVMDI ---
Documented by User: Yamilet Rivera NP 03/13/25 18:08 HPI - Nausea/Vomiting/Diarrhea General: Chief complaint: Nausea/Vomiting/Diarrhea Stated complaint: abd pain, n/v x4 days, hard to breathe Time Seen by Provider: 03/13/25 11:54 History of Present Illness: 39-year-old female patient presents to the emergency department today for complaints of nausea, vomiting, diarrhea for 4 days. Patient reported that she has also had some shortness of air. She reported that she is starting to feel weak. Patient reported she has had chills but denies having a fever. Patient has a medical history of lupus, diabetes, past history of pancreatitis. Lipase is elevated CT scan is consistent with pancreatitis. Patient is unable to keep down oral rehydrating fluids and will be admitted to the hospital for intractable nausea and vomiting. Associated nausea: Yes Associated symtoms: Reports nausea Related Data Home Medications ?Medication ?Instructions ?Recorded ?Confirmed propranolol 20 mg tablet 40 mg PO BID 03/13/25 03/13/25 Previous Rx's ?Medication ?Instructions ?Recorded ondansetron 8 mg disintegrating 8 mg PO Q12H PRN nausea and 02/18/24 tablet vomiting #30 tabs Allergies Allergy/AdvReac Type Severity Reaction Status Date / Time cephalexin Allergy Intermediate ADR-Vomitin Verified 04/20/24 15:13 g hydromorphone (From Dilaudid) Allergy Intermediate ADR-Vomitin Verified 04/20/24 15:13 g codeine Allergy swelling Verified 04/20/24 15:13 doxycycline Allergy ADR-Abdominal Verified 04/20/24 15:13 Pain Penicillins Allergy rash Verified 04/20/24 15:13 Review of Systems Const: Reports: chills and body aches Resp: Reports: dyspnea GI: Reports: abdominal pain, nausea, vomiting and diarrhea PFSH ED PFSH: Medical History (Updated 03/13/25 @ 18:08 by Yamilet Rivera NP) Leukocytosis Pancreatitis Abdominal pain Macrocytosis without anemia Pancreatitis, alcoholic, acute Iron deficiency High risk medication use Inflammatory arthritis Hypertension Pre-eclampsia Surgical History History of knee surgery History of laparoscopy Family History Mother Hypothyroidism Other Cancer Chronic kidney disease (CKD) Diabetes Family history of premature coronary artery disease Hypertension Lupus Rheumatoid arthritis Denies family history of Hyperlipidemia Lung disease Stroke Social History Smoking and tobacco/nicotine status: never used tobacco/nicotine Alcohol intake: current Substance/Drug Use: never Physical Exam Const: COMMON NORMALS: no acute distress, patient oriented x3 and alert Neck/C-Spine: COMMON NORMALS: no JVD Chest: COMMONS NORMALS: normal inspection of the chest and normal palpation of entire chest wall Resp: COMMON NORMALS: normal respiratory effort, No retractions, No use of accessory muscles and clear to auscultation bilaterally AUSCULTATION: clear to auscultation bilaterally Cardio: COMMON NORMALS: no JVD, regular rate, regular rhythm, S1 normal heart sound present, S2 normal heart sound present, No gallops present (Cardio) and No murmurs present (Cardio) RATE: regular rate RHYTHM: regular rhythm HEART SOUNDS: S1 normal heart sound present and S2 normal heart sound present GI: COMMON NORMALS: Soft to palpation and No hepatosplenomegaly present INSPECTION: Yes normal to inspection and Yes central obesity AUSCULTATION: Yes Hyperactive bowel sounds present PALPATION: Yes Soft to palpation, Yes Tenderness to palpation present (GI) Details: RUQ and Yes No hepatosplenomegaly present Neuro: COMMON NORMALS: patient oriented x3 SENSORIUM/ORIENTATION: Yes alert SPEECH: speech normal Course Vital Signs: Vital signs: Vital Signs Temperature 98.0 F 03/13/25 12:04 Pulse Rate 56 L 03/13/25 17:08 Respiratory Rate 18 03/13/25 14:57 Blood Pressure 169/84 03/13/25 17:08 Pulse Oximetry 96 03/13/25 17:08 Oxygen Delivery Me thod Room Air 03/13/25 14:57 MDM - Nausea/Vomiting/Diarrhea Lab Data 03/13/25 12:13 03/13/25 12:13 Radiology Impressions Abdomen/Pelvis CT 03/13/25 12:14 IMPRESSION: Acute pancreatitis involving the head and uncinate process of the pancreas similar to the last examination. Laboratory Results WBC 9.89 10^3/uL (3.29-11.43) 03/13/25 12:13 RBC 3.79 10^6/uL (3.85-5.65) L 03/13/25 12:13 Hgb 11.70 g/dL (11.27-16.99) 03/13/25 12:13 Hct 36.2 % (36-47) 03/13/25 12:13 MCV 95.5 fl (85-98) 03/13/25 12:13 MCH 30.9 pg (27-33) 03/13/25 12:13 MCHC 32.3 g/dL (30-55) 03/13/25 12:13 RDW 16.2 % (12.1-15.1) H 03/13/25 12:13 Plt Count 339 10^3/cmm (157-399) 03/13/25 12:13 MPV 9.8 fL (7.4-10.4) 03/13/25 12:13 Neut % (Auto) 73.3 % 03/13/25 12:13 Lymph % (Auto) 19.4 % 03/13/25 12:13 Stark % (Auto) 4.3 % 03/13/25 12:13 Eos % (Auto) 2.3 % 03/13/25 12:13 Baso % (Auto) 0.5 % 03/13/25 12:13 Neut # (Auto) 7.24 10^3/uL (1.8-7.7) 03/13/25 12:13 Lymph # (Auto) 1.9 10^3/uL (0.8-4.8) 03/13/25 12:13 Stark # (Auto) 0.4 10^3/uL (0.2-0.9) 03/13/25 12:13 Eos # (Auto) 0.2 10^3/uL (0.0-0.8) 03/13/25 12:13 Baso # (Auto) 0.1 10^3/uL (0.0-0.1) 03/13/25 12:13 Nucleated RBC % (auto) 0 % 03/13/25 12:13 Nucleated RBCs # 0.0 /100WBC 03/13/25 12:13 Sodium 138 mmol/L (136-145) 03/13/25 12:13 Potassium 3.5 mmol/L (3.5-5.1) 03/13/25 12:13 Chloride 102 mmol/L (98-107) 03/13/25 12:13 Carbon Dioxide 20 mmol/L (22-29) L 03/13/25 12:13 Anion Gap 19.5 (5-19) H 03/13/25 12:13 BUN 5 mg/dL (6-20) L 03/13/25 12:13 Creatinine 0.6 mg/dL (0.5-0.9) 03/13/25 12:13 GFR Calculation 110.2 mL/min (90-130) 03/13/25 12:13 Glucose 141 mg/dL (65-115) H 03/13/25 12:13 Calculated Osmolality 286 mOsm/kg (285-295) 03/13/25 12:13 Calcium 9.3 mg/dL (8.5-10.5) 03/13/25 12:13 Magnesium 1.5 mg/dL (1.7-2.3) L 03/13/25 12:13 Total Bilirubin 0.8 mg/dL (0.15-1.2) 03/13/25 12:13 AST 31 U/L (0-32) 03/13/25 12:13 ALT 22 U/L (0-33) 03/13/25 12:13 Alkaline Phosphatase 89 U/L (35-105) 03/13/25 12:13 Total Protein 7.2 g/dL (6.6-8.7) 03/13/25 12:13 Albumin 4.3 g/dL (3.5-5.2) 03/13/25 12:13 Globulin 2.9 g/dL (1.3-4.6) 03/13/25 12:13 Lipase 207 U/L (13-60) H 03/13/25 12:13 HCG, Qual Negative (Negative) 03/13/25 12:13 Urine Color Titus (Yellow) A 03/13/25 11:59 Urine Appearance Turbid (CLEAR) A 03/13/25 11:59 Urine pH 5.5 (5-7) 03/13/25 11:59 Ur Specific [place] 1.028 (1.005-1.030) 03/13/25 11:59 Urine Protein 2+ (Negative) A 03/13/25 11:59 Urine Glucose (UA) Negative (Normal) 03/13/25 11:59 Urine Ketones Trace (Negative) 03/13/25 11:59 Urine Blood Negative (Negative) 03/13/25 11:59 Urine Nitrate Negative (Negative) 03/13/25 11:59 Urine Bilirubin 2+ (Negative) H 03/13/25 11:59 Urine Urobilinogen 1.0 mg/dL (Negative) 03/13/25 11:59 Ur Leukocyte Esterase Trace (Negative) A 03/13/25 11:59 Urine RBC 0-4 /hpf (0-2) H 03/13/25 11:59 Urine WBC 5-10 /hpf (0-5) H 03/13/25 11:59 Ur Squamous Epith Cells 10-15 /hpf (0-5) H 03/13/25 11:59 Amorphous Sediment Not Reportable 03/13/25 11:59 Urine Bacteria 1+ /hpf (NONE) H 03/13/25 11:59 Hyaline Casts 5-10 /lpf H 03/13/25 11:59 Ethyl Alcohol < 10 mg/dL (0-10) 03/13/25 12:13 Influenza A (PCR) Negative (Negative) 03/13/25 12:19 Influenza Type B (PCR) Negative (Negative) 03/13/25 12:19 RSV (PCR) Negative (Negative) 03/13/25 12:19 SARS-CoV-2 (PCR) Negative (Negative) 03/13/25 12:19 All radiology interpretation(s) finalized by discharge Discharge Plan Discharge Patient Disposition: Admitted As Inpatient Clinical Impression: Pancreatitis, Intractable nausea and vomiting, Abdominal pain Condition: Stable Coding Level of Care Code ED Human Resources Services Specialist for [place] Documented by User: Irene Aeljandro MD 03/13/25 17:05 HPI - Nausea/Vomiting/Diarrhea General: Chief complaint: Nausea/Vomiting/Diarrhea Stated complaint: abd pain, n/v x4 days, hard to breathe Time Seen by Provider: 03/13/25 11:54 Related Data Home Medications ?Medication ?Instructions ?Recorded ?Confirmed propranolol 20 mg tablet 40 mg PO BID 03/13/25 03/13/25 Previous Rx's ?Medication ?Instructions ?Recorded ondansetron 8 mg disintegrating 8 mg PO Q12H PRN nausea and 02/18/24 tablet vomiting #30 tabs Allergies Allergy/AdvReac Type Severity Reaction Status Date / Time cephalexin Allergy Intermediate ADR-Vomitin Verified 04/20/24 15:13 g hydromorphone (From Dilaudid) Allergy Intermediate ADR-Vomitin Verified 04/20/24 15:13 g codeine Allergy swelling Verified 04/20/24 15:13 doxycycline Allergy ADR-Abdominal Verified 04/20/24 15:13 Pain Penicillins Allergy rash Verified 04/20/24 15:13 PFSH ED PFSH: Medical History (Updated 03/13/25 @ 18:08 by Yamilet Rivera NP) Leukocytosis Pancreatitis Abdominal pain Macrocytosis without anemia Pancreatitis, alcoholic, acute Iron deficiency High risk medication use Inflammatory arthritis Hypertension Pre-eclampsia Surgical History History of knee surgery History of laparoscopy Family History Mother Hypothyroidism Other Cancer Chronic kidney disease (CKD) Diabetes Family history of premature coronary artery disease Hypertension Lupus Rheumatoid arthritis Denies family history of Hyperlipidemia Lung disease Stroke Social History Smoking and tobacco/nicotine status: never used tobacco/nicotine Alcohol intake: current Substance/Drug Use: never Course Vital Signs: Vital signs: Vital Signs Temperature 98.0 F 03/13/25 12:04 Pulse Rate 56 L 03/13/25 17:08 Respiratory Rate 18 03/13/25 14:57 Blood Pressure 169/84 03/13/25 17:08 Pulse Oximetry 96 03/13/25 17:08 Oxygen Delivery Me thod Room Air 03/13/25 14:57 MDM - Nausea/Vomiting/Diarrhea Medical Decision Making The case was discussed with: the midlevel provider. Evaluation and management service: I agree with the evaluation and management decisions made in this patient's care. Results interpretation: I agree with the study interpretation in this patient's care, I agree with the documentation of the study interpretation. Lab Data 03/13/25 12:13 03/13/25 12:13 Radiology Impressions Abdomen/Pelvis CT 03/13/25 12:14 IMPRESSION: Acute pancreatitis involving the head and uncinate process of the pancreas similar to the last examination. Laboratory Results WBC 9.89 10^3/uL (3.29-11.43) 03/13/25 12:13 RBC 3.79 10^6/uL (3.85-5.65) L 03/13/25 12:13 Hgb 11.70 g/dL (11.27-16.99) 03/13/25 12:13 Hct 36.2 % (36-47) 03/13/25 12:13 MCV 95.5 fl (85-98) 03/13/25 12:13 MCH 30.9 pg (27-33) 03/13/25 12:13 MCHC 32.3 g/dL (30-55) 03/13/25 12:13 RDW 16.2 % (12.1-15.1) H 03/13/25 12:13 Plt Count 339 10^3/cmm (157-399) 03/13/25 12:13 MPV 9.8 fL (7.4-10.4) 03/13/25 12:13 Neut % (Auto) 73.3 % 03/13/25 12:13 Lymph % (Auto) 19.4 % 03/13/25 12:13 Stark % (Auto) 4.3 % 03/13/25 12:13 Eos % (Auto) 2.3 % 03/13/25 12:13 Baso % (Auto) 0.5 % 03/13/25 12:13 Neut # (Auto) 7.24 10^3/uL (1.8-7.7) 03/13/25 12:13 Lymph # (Auto) 1.9 10^3/uL (0.8-4.8) 03/13/25 12:13 Stark # (Auto) 0.4 10^3/uL (0.2-0.9) 03/13/25 12:13 Eos # (Auto) 0.2 10^3/uL (0.0-0.8) 03/13/25 12:13 Baso # (Auto) 0.1 10^3/uL (0.0-0.1) 03/13/25 12:13 Nucleated RBC % (auto) 0 % 03/13/25 12:13 Nucleated RBCs # 0.0 /100WBC 03/13/25 12:13 Sodium 138 mmol/L (136-145) 03/13/25 12:13 Potassium 3.5 mmol/L (3.5-5.1) 03/13/25 12:13 Chloride 102 mmol/L (98-107) 03/13/25 12:13 Carbon Dioxide 20 mmol/L (22-29) L 03/13/25 12:13 Anion Gap 19.5 (5-19) H 03/13/25 12:13 BUN 5 mg/dL (6-20) L 03/13/25 12:13 Creatinine 0.6 mg/dL (0.5-0.9) 03/13/25 12:13 GFR Calculation 110.2 mL/min (90-130) 03/13/25 12:13 Glucose 141 mg/dL (65-115) H 03/13/25 12:13 Calculated Osmolality 286 mOsm/kg (285-295) 03/13/25 12:13 Calcium 9.3 mg/dL (8.5-10.5) 03/13/25 12:13 Magnesium 1.5 mg/dL (1.7-2.3) L 03/13/25 12:13 Total Bilirubin 0.8 mg/dL (0.15-1.2) 03/13/25 12:13 AST 31 U/L (0-32) 03/13/25 12:13 ALT 22 U/L (0-33) 03/13/25 12:13 Alkaline Phosphatase 89 U/L (35-105) 03/13/25 12:13 Total Protein 7.2 g/dL (6.6-8.7) 03/13/25 12:13 Albumin 4.3 g/dL (3.5-5.2) 03/13/25 12:13 Globulin 2.9 g/dL (1.3-4.6) 03/13/25 12:13 Lipase 207 U/L (13-60) H 03/13/25 12:13 HCG, Qual Negative (Negative) 03/13/25 12:13 Urine Color Titus (Yellow) A 03/13/25 11:59 Urine Appearance Turbid (CLEAR) A 03/13/25 11:59 Urine pH 5.5 (5-7) 03/13/25 11:59 Ur Specific [place] 1.028 (1.005-1.030) 03/13/25 11:59 Urine Protein 2+ (Negative) A 03/13/25 11:59 Urine Glucose (UA) Negative (Normal) 03/13/25 11:59 Urine Ketones Trace (Negative) 03/13/25 11:59 Urine Blood Negative (Negative) 03/13/25 11:59 Urine Nitrate Negative (Negative) 03/13/25 11:59 Urine Bilirubin 2+ (Negative) H 03/13/25 11:59 Urine Urobilinogen 1.0 mg/dL (Negative) 03/13/25 11:59 Ur Leukocyte Esterase Trace (Negative) A 03/13/25 11:59 Urine RBC 0-4 /hpf (0-2) H 03/13/25 11:59 Urine WBC 5-10 /hpf (0-5) H 03/13/25 11:59 Ur Squamous Epith Cells 10-15 /hpf (0-5) H 03/13/25 11:59 Amorphous Sediment Not Reportable 03/13/25 11:59 Urine Bacteria 1+ /hpf (NONE) H 03/13/25 11:59 Hyaline Casts 5-10 /lpf H 03/13/25 11:59 Ethyl Alcohol < 10 mg/dL (0-10) 03/13/25 12:13 Influenza A (PCR) Negative (Negative) 03/13/25 12:19 Influenza Type B (PCR) Negative (Negative) 03/13/25 12:19 RSV (PCR) Negative (Negative) 03/13/25 12:19 SARS-CoV-2 (PCR) Negative (Negative) 03/13/25 12:19 Discharge Plan Discharge Patient Disposition: Admitted As Inpatient Clinical Impression: Pancreatitis, Intractable nausea and vomiting, Abdominal pain Condition: Stable Coding Level of Care Code ED Human Resources Services Specialist for [place]
[2025-03-13] MEDS: ondansetron 2 mg/ML SDV 2 mL 4 MG IVP (12:12)
[2025-03-13] MEDS: fentaNYL 50 mcg/mL INJ 2mL IVP (12:13)
--- NOTE | 2025-03-13 12:14 | CTR_ITS ---
PROCEDURE INFORMATION: Exam: CT Abdomen And Pelvis With Contrast Exam date and time: 03/13/2025 1:27 PM Age: 39 years old Clinical indication: Epigastric; PT presents with n/v and general sickness. Patient states feeling unwell for several days with n/v/d. Patient has HX of pancreatitis. Patient also states low grade fever. Patient states abdominal pain to right and center; Additional info: Possible pancreatitis TECHNIQUE: Imaging protocol: Computed tomography of the abdomen and pelvis with contrast. Radiation optimization: All CT scans at this facility use at least one of these dose optimization techniques: automated exposure control; mA and/or kV adjustment per patient size (includes targeted exams where dose is matched to clinical indication); or iterative reconstruction. Contrast material: OMNI 350; Contrast volume: 100 ml; Contrast route: INTRAVENOUS (IV); COMPARISON: CT abdomen pelvis w con* [id number] 12/05/2022 12:20 AM RADIATION DOSE METRICS: Total DLP (mGy-cm): 577.59 FINDINGS: Liver: There is a diffuse decrease in hepatic parenchymal density, consistent with fatty infiltration. Gallbladder and biliary ducts: Normal. No calcified stones. No ductal dilation. Pancreas: See Intraperitoneal space finding. Spleen: Normal. No splenomegaly. Adrenal glands: Normal. No mass. Kidneys and ureters: Normal. No hydronephrosis. Stomach and bowel: Unremarkable. No obstruction. No mucosal thickening. Appendix: No evidence of appendicitis. Intraperitoneal space: Fat stranding is observed around the pancreatic head that is accompanied by a small amount of fluid extending caudally along the peritoneal margin with the retroperitoneum. The pancreatic duct in the pancreatic head measures about 4 mm in maximum diameter, unchanged. No ductal dilatation in the body and tail of the pancreas which is also unchanged. Vasculature: Unremarkable. No abdominal aortic aneurysm. Lymph nodes: Unremarkable. No enlarged lymph nodes. Urinary bladder: Unremarkable as visualized. Reproductive: Unremarkable as visualized. Bones/joints: Unremarkable. No acute fracture. Soft tissues: Unremarkable. CT/CT abdomen pelvis w con* [id number] IMPRESSION: Acute pancreatitis involving the head and uncinate process of the pancreas similar to the last examination.
[2025-03-13 12:21] LABS: Hematocrit 36.2 % (36-47); Hemoglobin 11.70 g/dL (11.27-16.99); Mean Corpuscular HGB Conc 32.3 g/dL (30-55); Mean Corpuscular Hemoglobin 30.9 pg (27-33); Mean Corpuscular Volume 95.5 fl (85-98); Nucleated Red Blood Cells % 0 %; Platelet Count 339 10^3/cmm (157-399); Red Blood Count 3.79 10^6/uL (3.85-5.65); White Blood Count 9.89 10^3/uL (3.29-11.43)
[2025-03-13 12:23] LABS: Glucose Urine UA Negative (Normal); Nitrate Urine Negative (Negative); Specific Gravity, Urine 1.028 (1.005-1.030)
[2025-03-13 12:31] LABS: HCG, Serum Qual Negative (Negative)
[2025-03-13 12:31] LABS: Add Urine Microscopic? YES
[2025-03-13 12:40] LABS: Alanine Aminotransferase 22 U/L (0-33); Albumin Level 4.3 g/dL (3.5-5.2); Alkaline Phosphatase 89 U/L (35-105); Anion Gap 19.5 (5-19); Aspartate Amino Transferase 31 U/L (0-32); Blood Urea Nitrogen 5 mg/dL (6-20); Calcium 9.3 mg/dL (8.5-10.5); Carbon Dioxide 20 mmol/L (22-29); Chloride 102 mmol/L (98-107); Creatinine Clr Calc Pharmacy 115.1024; Globulin 2.9 g/dL (1.3-4.6); Glucose 141 mg/dL (65-115); Lipase 207 U/L (13-60); Magnesium 1.5 mg/dL (1.7-2.3); Osmolality Calculated 286 mOsm/kg (285-295); Potassium 3.5 mmol/L (3.5-5.1); Sodium 138 mmol/L (136-145); Total Protein 7.2 g/dL (6.6-8.7)
[2025-03-13 12:41] LABS: Alcohol Level < 10 mg/dL (0-10)
[2025-03-13 13:05] LABS: Respiratory Syncytial Virus Ce NEGATIVE (Negative); SARS-CoV-2 PCR NEGATIVE (Negative)
[2025-03-13] MEDS: metoclopramide 5 mg/mL SDV 2 mL 10 MG IVP (13:22)
[2025-03-13] MEDS: morphine 4 mg/mL SDV 1 mL IVP ×4 (13:25→22:34)
[2025-03-13] MEDS: iohexol 350 mg/mL 500 mL Btl (per mL) IV (13:35)
--- NOTE | 2025-03-13 15:44 | P.HP_ITS ---
Providers/Chief Complaint 2 Admitting Physician: Efrem Primary Care Provider: Bebo Culver DO Chief Complaint: abd pain, n/v x4 days, hard to breathe History of Present Illness Sadaf Horner is a 39 year old female presents with acute abdominal pain nausea and vomiting. She carries a history of pancreatitis over the past few years. This episode started Friday. She states with her history she tries to tolerate at home with fasting. She states her nausea vomiting diarrhea was just 1 day and initially said she thought it was a GI bug. she did not feel well but she did not have significant vomiting episodes. But then Friday the vomiting started again. Again she tried fasting with no affect her symptoms continue to worsen until she finally came to the emergency room. Patient states that she has never received GI specialty care for her diagnosis of pancreatitis. She denies alcohol use consistently. She did have an episode after consuming some alcohol on a float trip. She did not have any alcohol prior to this episode. In the ER she is found to have a lipase of 207 with radiologic evidence of acute pancreatitis seen on CT. Review of Systems 2 Const: Denies: fever(s) or chills Eyes: Denies: change in vision ENMT: Denies: throat pain or nasal congestion Card: Denies: chest pain or palpitations Resp: Denies: dyspnea or productive cough GI: Reports: abdominal pain, nausea, vomiting and diarrhea : Denies: dysuria Musc: Denies: back pain or extremity pain Skin/Breast: Denies: rash or lesions Neuro: Denies: headache(s) or dizziness Psych: Denies: anxiety or depression Amadeo/Lymph: Denies: easy bruising or easy bleeding Medications/Allergies Home Medications ?Medication ?Instructions ?Recorded ?Confirmed ?Last Taken ?Type Methionine 1,000 mg PO DAILY 90 days #9 0 tabs 01/01/24 04/20/24 Unknown Rx selenium 200 mcg tablet 200 mcg PO DAILY #90 tabs 04/20/24 Unknown Rx vitamin A-vitamin C-vitamin E 1 tab PO DAILY #90 tabs 01/01/24 04/20/24 Unknown Rx (E-400 C-500 and Beta Carotene tablet) ondansetron 8 mg disintegrating 8 mg PO Q12H PRN nause a and 02/18/24 04/20/24 Unknown Rx tablet vomiting #30 tabs wxmmqj-duqheiyh-abbhztm(pork)12,000-38,000-60,000 1 ca p PO TID #90 caps 03/02/24 04/20/24 Unknown Rx unit capsule,del rel (Creon) rizatriptan 5 mg disintegrating See Rx Instructions PO .COMPLEX 03/02/24 04/20/24 Unknown Rx tablet #10 tabs hydrocodone 10 mg-acetaminophen 1 tab PO BID PRN pain 1 month #30 04/14/24 04/20/24 Unknown Rx 325 mg tablet tabs sulfamethoxazole 800 1 tab PO BID #40 tabs 04/20/24 Unknown Rx mg-trimethoprim 160 mg tablet (Bactrim DS) losartan 50 mg tablet See Rx Instructions .Route 0 06/07/24 Unknown Rx .COMPLEX #90 tabs amitriptyline 50 mg tablet See Rx Instructions .Route 08/20/24 Unknown Rx .COMPLEX #30 tabs propranolol 20 mg tablet See Rx Instructions .Route 0 02/10/25 Unknown Rx .COMPLEX #120 tabs Allergies Allergy/AdvReac Type Severity Reaction Status Date / Time cephalexin Allergy Intermediate ADR-Vomitin Verified 04/20/24 15:13 g hydromorphone (From Dilaudid) Allergy Intermediate ADR-Vomitin Verified 04/20/24 15:13 g codeine Allergy swelling Verified 04/20/24 15:13 doxycycline Allergy ADR-Abdominal Verified 04/20/24 15:13 Pain Penicillins Allergy rash Verified 04/20/24 15:13 PFSH Acute 2 PFSH: Medical History Leukocytosis Pancreatitis Abdominal pain Macrocytosis without anemia Pancreatitis, alcoholic, acute Iron deficiency High risk medication use Inflammatory arthritis Hypertension Pre-eclampsia Surgical History History of knee surgery History of laparoscopy Family History Mother Hypothyroidism Other Cancer Chronic kidney disease (CKD) Diabetes Family history of premature coronary artery disease Hypertension Lupus Rheumatoid arthritis Denies family history of Hyperlipidemia Lung disease Stroke Social History Smoking and tobacco/nicotine status: never used tobacco/nicotine Alcohol intake: current Substance/Drug Use: never Vitals/I&O/Wt Last Vital Signs Temp 98.0 F 03/13/25 12:04 Pulse 55 L 03/13/25 14:57 Resp 18 03/13/25 14:57 BP 172/68 03/13/25 14:57 Pulse Ox 98 03/13/25 14:57 O2 Del Method Room Air 03/13/25 14:57 03/13/25 03/13/25 03/13/25 06:59 14:59 22:59 Intake Total 1000 / 1000 Balance 1000 / 1000 Weight last 48 hrs Weight 72.575 kg Physical Exam 2 Narrative: Patient is alert and oriented she is in moderate distress due to her abdominal pain neuro alert and oriented x 3 nonfocal HEENT head is no cephalic atraumatic pupils equal round reactive to light and accommodation extraocular muscles are intact no scleral icterus mucous membranes are dry and pale. Neck is supple no JVD carotid bruits or lymphadenopathy Heart is regular normal S1-S2 without murmurs clicks gallops or rubs Lungs are clear to auscultation although moderately diminished most likely related to the abdominal pain Abdomen diffusely tender normal active bowel sounds no rebound rigidity or guarding Extremities no clubbing cyanosis or edema Back no scoliosis or kyphosis, no CVA tenderness Skin no rashes or lesions noted Psych mood and affect are appropriate for condition Data 03/13/25 12:13 03/13/25 12:13 Other Labs: Lipase 207 CT Abd/Pel: Radiologist's impression: IMPRESSION: Acute pancreatitis involving the head and uncinate process of the pancreas similar to the last examination. A&P Assessment and plan 1. Acute on chronic pancreatitis: 2. Tobacco use: 3. Hypomagnesemia: 4. Nausea and vomitin. Abdominal pain: Plan: Admit to the general medical floor N.p.o. except for ice chips, bowel rest and IV fluids and pain management Patient with a mild anion gap and bicarb of 20. Will start bicarb drip. Patient found to be hypomagnesemia will replace with IV. Follow and BMP and electrolytes. Patient denies any new medications. However I do see Bactrim on her list will need to inquire when that was discontinued. As that can be a culprit of pancreatitis. Otherwise I do not see any other drugs as underlying cause. Patient states she did receive a GI referral to [facility]. Unfortunately all her appointments ended up being canceled on their end and she gave up . I advised her to go to [place] either [facility] or [facility] and she can always call once a week for a cancellation. PDMP PDMP Reviewed: Not Reviewed Attestations 2 Medical Necessity Statement*: Patient requires a 2 midnight stay for the treatment of acute pancreatitis. Patient is unable to tolerate diet and requires IV fluids IV pain medications that cannot be given at home Coding Level of Care Code Acute Code for [facility] Diagnoses Acute on chronic pancreatitis K85.90; K86.1 Tobacco use Z72.0 Hypomagnesemia E83.42 Nausea and vomiting R11.2 Abdominal pain R10.9
--- NOTE | 2025-03-13 15:55 | PC.PHAR ---
Pt states she only takes Propranolol and has an order for Zofran. All other meds were more than 8 months old and some were 2023.
--- OUTSIDE RECORDS SUMMARY | 2025-03-13 18:19 | XMS_ITS | Encounter Summary ---
Author Organization [facility] Address [address] [place] [address] Care Team Providers Care Four H Club Agent Name Role Phone Unavailable Primary Care Provider Unavailabl e Encounter Details Date Type Department Care Team (Late st Contact Info) Description 10/23/2000 Outpatient Historical [facility] OBMARY KATE-Landin Ford Ildefonso [address] [place] [address] Jade Garcia MD [address] [facility] [place] [address] Routine medical exam (Primary Dx); Gynecologic examination Social History Tobacco Use Types Packs/Day Years Used Date Smoking Tobacco: Never Assessed Comments Unknown Sex and Gender Information Value Date Recorded Sex Assigned at Not on file 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
--- OUTSIDE RECORDS SUMMARY | 2025-03-13 18:19 | XMS_ITS | Encounter Summary ---
Author Organization [facility] Address [address] [place] [address] Care Team Providers Care Bottom Turner Name Role Phone Unavailable Primary Care Provider Unavailabl e Encounter Details Date Type Department Care Team (Late st Contact Info) Description 10/27/2001 Outpatient Historical [facility] OBMARY KATE-Mushtaq Blankenshipnn Ildefonso [address] [place] [address] Jade Garcia MD [address] [facility] [address] [place] [address] Gynecologic examination (Primary Dx) Social History Tobacco Use Types Packs/Day Years Used Date Smoking Tobacco: Never Assessed Comments Unknown Sex and Gender Information Value Date Recorded Sex Assigned at Not on file 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
--- OUTSIDE RECORDS SUMMARY | 2025-03-13 18:19 | XMS_ITS | Encounter Summary ---
Author Organization [facility] Address [address] [place] [address] Care Team Providers Care Egg Processor Name Role Phone Unavailable Primary Care Provider Unavailabl e Encounter Details Date Type Department Care Team (Latest Contact Info) Description 08/03/1998 Outpatient Historical [facility] Tyshawn Dang Jr., MD [address] [place] [address] Other and unspecified superficial injury of hip, thigh, leg, and ankle, infected (Primary Dx) Social History Tobacco Use Types Packs/Day Years Used Date Smoking Tobacco: Never Assessed Comments Unknown Sex and Gender Information Value Date Recorded Sex Assigned at Not on file Legal Sex Female 4:23 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
--- OUTSIDE RECORDS SUMMARY | 2025-03-13 18:19 | XMS_ITS | Encounter Summary ---
Author Organization [facility] Address [address] [place] [address] Care Team Providers Care Manager Transfer Name Role Phone Unavailable Primary Care Provider Unavailabl e Encounter Details Date Type Department Care Team (Latest Contact Info) Description 04/30/2000 Outpatient Historical [facility] GENERAL ENGINEERING TEACHER 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
--- OUTSIDE RECORDS SUMMARY | 2025-03-13 18:19 | XMS_ITS | Encounter Summary ---
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
--- OUTSIDE RECORDS SUMMARY | 2025-03-13 18:19 | XMS_ITS | Encounter Summary ---
Author Organization [facility] Address [address] [place] [address] Care Team Providers Care Photonics Technician Name Role Phone Unavailable Primary Care Provider Unavailabl e Encounter Details Date Type Department Care Team (Latest Contact Info) Description 10/13/2001 Outpatient Historical [facility] Diaz Silverio MD [address], [place] [id number] ALLERGIC RHINITIS NEC (Primary Dx) Social History Tobacco Use Types Packs/Day Years Used Date Smoking Tobacco: Never Assessed Comments Unknown Sex and Gender Information Value Date Recorded Sex Assigned at Not on file 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
--- OUTSIDE RECORDS SUMMARY | 2025-03-13 18:19 | XMS_ITS | Encounter Summary ---
Author Organization [facility] Address [address] [place] [address] Care Team Providers Care Associate Pastor Name Role Phone Unavailable Primary Care Provider Unavailabl e Encounter Details Date Type Department Care Team (Latest Contact Info) Description 09/29/1998 Outpatient Historical [facility] Tyshawn Dnag Jr., MD [address] [place] [address] Allergic rhinitis, cause unspecified (Primary Dx) Social History Tobacco Use Types Packs/Day Years Used Date Smoking Tobacco: Never Assessed Comments Unknown Sex and Gender Information Value Date Recorded Sex Assigned at Not on file 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
--- OUTSIDE RECORDS SUMMARY | 2025-03-13 18:19 | XMS_ITS | Encounter Summary ---
Author Organization [facility] Address [address] [place] [address] Care Team Providers Care Pantry Goods Maker Name Role Phone Unavailable Primary Care [...] on file Legal Sex Female 4:23 AM MILL MANAGER Gender Identity Not on file Sexual Orientation Not on file documented as of this encounter Plan of Treatment Not on file documented as of this encounter Visit Diagnoses Diagnosis Abdominal pain, unspecified site- Primary documented in this encounter
--- OUTSIDE RECORDS SUMMARY | 2025-03-13 18:19 | XMS_ITS | Encounter Summary ---
Author Organization [facility] Address [address] [place] [address] Care Team Providers Care Public Relations Name Role Phone Unavailable Primary Care Provider Unavailabl e Encounter Details Date Type Department Care Team (Latest Contact Info) Description 06/25/2000 Outpatient Historical [facility] [address] [place] [address] Tom Anand MD NO ADDRESS ON FILE Cough (Primary Dx) Social History Tobacco Use Types Packs/Day Years Used Date Smoking Tobacco: Never Assessed Comments Unknown Sex and Gender Information Value Date Recorded Sex Assigned at Not on file Legal Sex Female 4:23 AM ELIGIBILITY SERVICES REPRESENTATIVE Gender Identity Not on file Sexual Orientation Not on file documented as of this encounter Plan of Treatment Not on file documented as of this encounter Visit Diagnoses Diagnosis Cough- Primary documented in this encounter
--- OUTSIDE RECORDS SUMMARY | 2025-03-13 18:19 | XMS_ITS | Encounter Summary ---
Author Organization [facility] Address [address] [place] [address] Care Team Providers Care Track Leader Name Role Phone Unavailable Primary Care Provider Unavailabl e Encounter Details Date Type Department Care Team (Latest Contact Info) Description 10/16/1998 Outpatient Historical [facility] Tyshawn Dang Jr., MD [address] [place] [address] Allergic rhinitis, cause unspecified (Primary Dx) Social History Tobacco Use Types Packs/Day Years Used Date Smoking Tobacco: Never Assessed Comments Unknown Sex and Gender Information Value Date Recorded Sex Assigned at Not on file Legal Sex Female 4:23 AM CHUTE MAN Gender Identity Not on file Sexual Orientation Not on file documented as of this encounter Plan of Treatment Not on file documented as of this encounter Visit Diagnoses Diagnosis Allergic rhinitis, cause unspecified- Primary documented in this encounter
--- OUTSIDE RECORDS SUMMARY | 2025-03-13 18:19 | XMS_ITS | Encounter Summary ---
Author Organization [facility] Address [address] [place] [address] Care Team Providers Care Gastroenterologist Name Role Phone Unavailable Primary Care Provider Unavailabl e Encounter Details Date Type Department Care Team (Latest Contact Info) Description 08/10/1998 Outpatient Historical [facility] Tyshawn Dang Jr., MD [address] [place] [address] Pain in joint, lower leg (Primary Dx) Social History Tobacco Use Types Packs/Day Years Used Date Smoking Tobacco: Never Assessed Comments Unknown Sex and Gender Information Value Date Recorded Sex Assigned at Not on file Legal Sex Female 4:23 AM RADIO PERSONALITY Gender Identity Not on file Sexual Orientation Not on file documented as of this encounter Plan of Treatment Not on file documented as of this encounter Visit Diagnoses Diagnosis Pain in joint, lower leg- Primary documented in this encounter
--- OUTSIDE RECORDS SUMMARY | 2025-03-13 18:19 | XMS_ITS | Encounter Summary ---
Author Organization [facility] Address [address] [place] [address] Care Team Providers Care Photo Manager Name Role Phone Unavailable Primary Care Provider Unavailabl e Encounter Details Date Type Department Care Team (Latest Contact Info) Description 12/26/2000 Outpatient Historical [facility] [address] [place] [address] Kaity Ba MD NO ADDRESS ON FILE Dizziness and giddiness (Primary Dx) Social History Tobacco Use Types Packs/Day Years Used Date Smoking Tobacco: Never Assessed Comments Unknown Sex and Gender Information Value Date Recorded Sex Assigned at Not on file Legal Sex Female 4:23 AM TEST BORE HELPER Gender Identity Not on file Sexual Orientation Not on file documented as of this encounter Plan of Treatment Not on file documented as of this encounter Visit Diagnoses Diagnosis Dizziness and giddiness- Primary documented in this encounter
--- OUTSIDE RECORDS SUMMARY | 2025-03-13 18:19 | XMS_ITS | Encounter Summary ---
Author Organization [facility] Address [address] [place] [address] Care Team Providers Care Hadoop Application Developer Name Role Phone Unavailable Primary Care Provider Unavailabl e Encounter Details Date Type Department Care Team (Latest Contact Info) Description 07/07/1998 Outpatient Historical [facility] Tyshawn Dang Jr., MD [address] [place] [address] Allergic rhinitis, cause unspecified (Primary Dx) Social History Tobacco Use Types Packs/Day Years Used Date Smoking Tobacco: Never Assessed Comments Unknown Sex and Gender Information Value Date Recorded Sex Assigned at Not on file Legal Sex Female 4:23 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
--- OUTSIDE RECORDS SUMMARY | 2025-03-13 18:19 | XMS_ITS | Encounter Summary ---
Author Organization [facility] Address [address] [place] [address] Care Team Providers Care Train Braker Name Role Phone Unavailable Primary Care Provider Unavailabl e Encounter Details Date Type Department Care Team (Late st Contact Info) Description 12/26/2000 Outpatient Historical [facility] Kaity Ba MD NO ADDRESS ON FILE Dizziness and giddiness (Primary Dx) Social History Tobacco Use Types Packs/Day Years Used Date Smoking Tobacco: Never Assessed Comments Unknown Sex and Gender Information Value Date Recorded Sex Assigned at Not on file Legal Sex Female 4:23 AM MANAGER RECOVERY Gender Identity Not on file Sexual Orientation Not on file documented as of this encounter Plan of Treatment Not on file documented as of this encounter Visit Diagnoses Diagnosis Dizziness and giddiness- Primary documented in this encounter
--- OUTSIDE RECORDS SUMMARY | 2025-03-13 18:19 | XMS_ITS | Encounter Summary ---
Author Organization [facility] Address [address] [place] [address] Care Team Providers Care Refinery Technician Name Role Phone Unavailable Primary Care Provider Unavailabl e Encounter Details Date Type Department Care Team (Latest Contact Info) Description 08/11/1998 Outpatient Historical [facility] Bryson Wheeler MD NO ADDRESS ON FILE Pain in joint, lower leg (Primary Dx) Social History Tobacco Use Types Packs/Day Years Used Date Smoking Tobacco: Never Assessed Comments Unknown Sex and Gender Information Value Date Recorded Sex Assigned at Not on file Legal Sex Female 4:23 AM UPSCALE SECURITY OFFICER Gender Identity Not on file Sexual Orientation Not on file documented as of this encounter Plan of Treatment Not on file documented as of this encounter Visit Diagnoses Diagnosis Pain in joint, lower leg- Primary documented in this encounter
--- OUTSIDE RECORDS SUMMARY | 2025-03-13 18:19 | XMS_ITS | Encounter Summary ---
Author Organization [facility] Address [address] [place] [address] Care Team Providers Care Specialist Icu Name Role Phone Unavailable Primary Care Provider Unavailabl e Encounter Details Date Type Department Care Team (Latest Contact Info) Description 06/25/2000 Outpatient Historical [facility] Tom Anand MD NO ADDRESS ON FILE Other and unspecified noninfectious gastroenteritis and colitis(558.9) (Primary Dx); Fever and other physiologic disturbances of temperature regulation; Cough Social History Tobacco Use Types Packs/Day Years Used Date Smoking Tobacco: Never Assessed Comments Unknown Sex and Gender Information Value Date Recorded Sex Assigned at Not on file 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
--- OUTSIDE RECORDS SUMMARY | 2025-03-13 18:19 | XMS_ITS | Encounter Summary ---
Author Organization [facility] Address [address] [place] [address] Care Team Providers Care Car Oiler Name Role Phone Unavailable Primary Care Provider Unavailabl e Encounter Details Date Type Department Care Team (Latest Contact Info) Description 08/28/1998 Outpatient Historical [facility] [place] [address] [place] [id number] Pawan Yo MD NO ADDRESS ON FILE Allergic rhinitis, cause unspecified (Primary Dx); Other chronic allergic conjunctivitis; Chronic rhinitis Social History Tobacco Use Types Packs/Day Years Used Date Smoking Tobacco: Never Assessed Comments Unknown Sex and Gender Information Value Date Recorded Sex Assigned at Not on file Legal Sex Female 4:23 AM SECURITY ORDERLY Gender Identity Not on file Sexual Orientation Not on file documented as of this encounter Plan of Treatment Not on file documented as of this encounter Visit Diagnoses Diagnosis Allergic rhinitis, cause unspecified- Primary Other chronic allergic conjunctivitis Chronic rhinitis documented in this encounter
--- OUTSIDE RECORDS SUMMARY | 2025-03-13 18:19 | XMS_ITS | Encounter Summary ---
Author Organization [facility] Address [address] [place] [address] Care Team Providers Care Electric Motor Analyst Name Role Phone Unavailable Primary Care Provider Unavailabl e Encounter Details Date Type Department Care Team (Latest Contact Info) Description 06/23/2001 Outpatient Historical [facility] Diaz Silverio MD [address] [place], [place] [id number] ACUTE URI NOS (Primary Dx); AFTERCARE LITERACY EDUCATION PROFESSOR USE MEDICATN Social History Tobacco Use Types Packs/Day Years Used Date Smoking Tobacco: Never Assessed Comments Unknown Sex and Gender Information Value Date Recorded Sex Assigned at Not on file Legal Sex Female 4:23 AM ROLL CUTTER Gender Identity Not on file Sexual Orientation Not on file documented as of this encounter Plan of Treatment Not on file documented as of this encounter Visit Diagnoses Diagnosis Acute upper respiratory infections of unspecified site- Primary Encounter for long-term (current) use of other medications documented in this encounter
--- OUTSIDE RECORDS SUMMARY | 2025-03-13 18:19 | XMS_ITS | Encounter Summary ---
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
--- OUTSIDE RECORDS SUMMARY | 2025-03-13 18:19 | XMS_ITS | Encounter Summary ---
Author Organization [facility] Address [address] [place] [address] Care Team Providers Care Precinct I Police Sergeant Name Role Phone Unavailable Primary Care Provider Unavailabl e Encounter Details Date Type Department Care Team (Latest Contact Info) Description 05/28/2001 Outpatient Historical [facility] Tyshawn Dang Jr., MD [address] [place] [address] ACUTE URI NOS (Primary Dx) Social History Tobacco Use Types Packs/Day Years Used Date Smoking Tobacco: Never Assessed Comments Unknown Sex and Gender Information Value Date Recorded Sex Assigned at Not on file Legal Sex Female 4:23 AM ENTRY LEVEL RECRUITER Gender Identity Not on file Sexual Orientation Not on file documented as of this encounter Plan of Treatment Not on file documented as of this encounter Visit Diagnoses Diagnosis Acute upper respiratory infections of unspecified site- Primary documented in this encounter
--- OUTSIDE RECORDS SUMMARY | 2025-03-13 18:19 | XMS_ITS | Encounter Summary ---
Author Organization [facility] Address [address] [place] [address] Care Team Providers Care Cement Mason Highways And Streets Name Role Phone Unavailable Primary Care Provider Unavailabl e Encounter Details Date Type Department Care Team (Latest Contact Info) Description 09/08/1998 Outpatient Historical [facility] Bryson Wheeler MD NO ADDRESS ON FILE Tear of medial cartilage or meniscus of knee, current (Primary Dx) Social History Tobacco Use Types Packs/Day Years Used Date Smoking Tobacco: Never Assessed Comments Unknown Sex and Gender Information Value Date Recorded Sex Assigned at Not on file 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
--- OUTSIDE RECORDS SUMMARY | 2025-03-13 18:19 | XMS_ITS | Encounter Summary ---
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
--- OUTSIDE RECORDS SUMMARY | 2025-03-13 18:19 | XMS_ITS | Encounter Summary ---
Author Organization 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
[2025-03-13] MEDS: ondansetron 2 mg/ML SDV 2 mL 8 MG IVP (18:20)
--- OUTSIDE RECORDS SUMMARY | 2025-03-13 18:20 | XMS_ITS | Encounter Summary ---
Author Organization [facility] Address [address] [place] [address] Care Team Providers Care Hand Violin Maker Name Role Phone Unavailable Primary Care Provider Unavailabl e Encounter Details Date Type Department Care Team (Late st Contact Info) Description 11/04/2002 Outpatient Historical [facility] [address] [place] [address] Jade Garcia MD [address] [facility] [place] [address] Routine medical exam (Primary Dx); Gynecologic examination Social History Tobacco Use Types Packs/Day Years Used Date Smoking Tobacco: Never Assessed Comments Unknown Sex and Gender Information Value Date Recorded Sex Assigned at Not on file Legal Sex Female 4:23 AM PRODUCTION MINER Gender Identity Not on file Sexual Orientation Not on file documented as of this encounter Plan of Treatment Not on file documented as of this encounter Visit Diagnoses Diagnosis Routine medical exam- Primary Routine general medical examination at a health care facility Gynecologic examination Gynecological examination documented in this encounter
--- OUTSIDE RECORDS SUMMARY | 2025-03-13 18:20 | XMS_ITS | Encounter Summary ---
Author Organization [facility] Address [address] [place] [address] Care Team Providers Care Prison Guard Supervisor Name Role Phone Unavailable Primary Care Provider Unavailabl e Encounter Details Date Type Department Care Team (Latest Contact Info) Description 04/04/1999 Outpatient Historical [facility] Tyshawn Dang Jr., MD [address] [place] [address] Allergic rhinitis, cause unspecified (Primary Dx) Social History Tobacco Use Types Packs/Day Years Used Date Smoking Tobacco: Never Assessed Comments Unknown Sex and Gender Information Value Date Recorded Sex Assigned at Not on file 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
--- OUTSIDE RECORDS SUMMARY | 2025-03-13 18:20 | XMS_ITS | Encounter Summary ---
Author Organization [facility] Address [address] [place] [address] Care Team Providers Care Olericulture Teacher Name Role Phone Unavailable Primary Care Provider Unavailabl e Encounter Details Date Type Department Care Team (Latest Contact Info) Description 09/18/1999 Outpatient Historical [facility] [place] [address] [place] [address] Jade Garcia MD [address] [facility] [place] [address] Excessive menstruation (Primary Dx) Social History Tobacco Use Types Packs/Day Years Used Date Smoking Tobacco: Never Assessed Comments Unknown Sex and Gender Information Value Date Recorded Sex Assigned at Not on file Legal Sex Female 4:23 AM ORGANISATION AND METHODS ANALYST Gender Identity Not on file Sexual Orientation Not on file documented as of this encounter Plan of Treatment Not on file documented as of this encounter Visit Diagnoses Diagnosis Excessive menstruation- Primary Excessive or frequent menstruation documented in this encounter
--- OUTSIDE RECORDS SUMMARY | 2025-03-13 18:20 | XMS_ITS | Encounter Summary ---
Author Organization [facility] Address [address] [place] [address] Care Team Providers Care Commutator Undercutter Name Role Phone Unavailable Primary Care Provider Unavailabl e Encounter Details Date Type Department Care Team (Latest Contact Info) Description 11/26/1999 Outpatient Historical [facility] Tyshawn Dang Jr., MD [address] [place] [address] Molluscum contagiosum (Primary Dx) Social History Tobacco Use Types Packs/Day Years Used Date Smoking Tobacco: Never Assessed Comments Unknown Sex and Gender Information Value Date Recorded Sex Assigned at Not on file 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
--- OUTSIDE RECORDS SUMMARY | 2025-03-13 18:20 | XMS_ITS | Encounter Summary ---
Author Organization [facility] Address [address] [place] [address] Care Team Providers Care Scada Technician Name Role Phone Unavailable Primary Care Provider Unavailabl e Encounter Details Date Type Department Care Team (Latest Contact Info) Description 04/09/1999 Outpatient Historical [facility] Tyshawn Dang Jr., MD [address] [place] [address] Acute upper respiratory infections of unspecified site (Primary Dx) Social History Tobacco Use Types Packs/Day Years Used Date Smoking Tobacco: Never Assessed Comments Unknown Sex and Gender Information Value Date Recorded Sex Assigned at Not on file 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
--- OUTSIDE RECORDS SUMMARY | 2025-03-13 18:20 | XMS_ITS | Encounter Summary ---
Author Organization [facility] Address [address] [place] [address] Care Team Providers Care Letterpress Setter Name Role Phone Unavailable Primary Care Provider Unavailabl e Encounter Details Date Type Department Care Team (Latest Contact Info) Description 03/20/2000 Outpatient Historical [facility] Tyshawn Dang Jr., MD [address] [place] [address] Other diseases of trachea and bronchus, not elsewhere classified (Primary Dx) Social History Tobacco Use Types Packs/Day Years Used Date Smoking Tobacco: Never Assessed Comments Unknown Sex and Gender Information Value Date Recorded Sex Assigned at Not on file Legal Sex Female 4:23 AM BATCH UNLOADER Gender Identity Not on file Sexual Orientation Not on file documented as of this encounter Plan of Treatment Not on file documented as of this encounter Visit Diagnoses Diagnosis Other diseases of trachea and bronchus, not elsewhere classified- Primary documented in this encounter
--- OUTSIDE RECORDS SUMMARY | 2025-03-13 18:20 | XMS_ITS | Encounter Summary ---
Author Organization [facility] Address [address] [place] [address] Care Team Providers Care Claims Processor Name Role Phone Unavailable Primary Care Provider Unavailabl e Encounter Details Date Type Department Care Team (Latest Contact Info) Description 03/08/1999 Outpatient Historical [facility] Tyshawn Dang Jr., MD [address] [place] [address] Allergic rhinitis, cause unspecified (Primary Dx) Social History Tobacco Use Types Packs/Day Years Used Date Smoking Tobacco: Never Assessed Comments Unknown Sex and Gender Information Value Date Recorded Sex Assigned at Not on file Legal Sex Female 4:23 AM 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
--- OUTSIDE RECORDS SUMMARY | 2025-03-13 18:20 | XMS_ITS | Encounter Summary ---
Author Organization [facility] Address [address] [place] [address] Care Team Providers Care Ground Source Heat Pump Technician Name Role Phone Unavailable Primary Care Provider Unavailabl e Encounter Details Date Type Department Care Team (Latest Contact Info) Description 07/03/1998 Outpatient Historical [facility] Rosalino Plascencia NO ADDRESS ON FILE Acute upper respiratory infections of unspecified site (Primary Dx) Social History Tobacco Use Types Packs/Day Years Used Date Smoking Tobacco: Never Assessed Comments Unknown Sex and Gender Information Value Date Recorded Sex Assigned at Not on file Legal Sex Female 4:23 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
--- OUTSIDE RECORDS SUMMARY | 2025-03-13 18:20 | XMS_ITS | Encounter Summary ---
Author Organization [facility] Address [address] [place] [address] Care Team Providers Care Survey Methodologist Name Role Phone Unavailable Primary Care Provider Unavailabl e Encounter Details Date Type Department Care Team (Latest Contact Info) Description 02/27/2000 Outpatient Historical [facility] EXECUTIVE VICE PRESIDENT OF SALES [address] [place] [id number] Enoch Oakes MD NO ADDRESS ON FILE Irregular menstruation (Primary Dx); Excessive menstruation Social History Tobacco Use Types Packs/Day Years Used Date Smoking Tobacco: Never Assessed Comments Unknown Sex and Gender Information Value Date Recorded Sex Assigned at Not on file Legal Sex Female 4:23 AM DIRECTOR OF [facility] Gender Identity Not on file Sexual Orientation Not on file documented as of this encounter Plan of Treatment Not on file documented as of this encounter Visit Diagnoses Diagnosis Irregular menstruation- Primary Irregular menstrual cycle Excessive menstruation Excessive or frequent menstruation documented in this encounter
--- OUTSIDE RECORDS SUMMARY | 2025-03-13 18:20 | XMS_ITS | Encounter Summary ---
Author Organization [facility] Address [address] [place] [address] Care Team Providers Care Development Intern Name Role Phone Unavailable Primary Care Provider Unavailabl e Encounter Details Date Type Department Care Team (Latest Contact Info) Description 12/14/1998 Outpatient Historical [facility] Tyshawn Dang Jr., MD [address] [place] [address] Allergic rhinitis, cause unspecified (Primary Dx) Social History Tobacco Use Types Packs/Day Years Used Date Smoking Tobacco: Never Assessed Comments Unknown Sex and Gender Information Value Date Recorded Sex Assigned at Not on file Legal Sex Female 4:23 AM 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
--- OUTSIDE RECORDS SUMMARY | 2025-03-13 18:20 | XMS_ITS | Encounter Summary ---
Author Organization [facility] Address [address] [place] [address] Care Team Providers Care Human Capital Consultant Name Role Phone Unavailable Primary Care Provider Unavailabl e Encounter Details Date Type Department Care Team (Latest Contact Info) Description 12/23/2001 Outpatient Historical HIS [facility] Diaz Silverio MD [address] [place], [place] [id number] INSECT BITE NEC (Primary Dx); VENOMOUS BITE/STING NOS Social History Tobacco Use Types Packs/Day Years Used Date Smoking Tobacco: Never Assessed Comments Unknown Sex and Gender Information Value Date Recorded Sex Assigned at Not on file Legal Sex Female 4:23 AM DIRECTOR OF OUTPATIENT SERVICES Gender Identity Not on file Sexual Orientation [...] unspecified animals and plants documented in this encounter
--- OUTSIDE RECORDS SUMMARY | 2025-03-13 18:20 | XMS_ITS | Encounter Summary ---
Author Organization [facility] Address [address] [place] [address] Care Team Providers Care Rubber Mill Tender Name Role Phone Unavailable Primary Care Provider Unavailabl e Encounter Details Date Type Department Care Team (Late st Contact Info) Description 11/04/2002 Outpatient Historical HIS [facility] FY06 Jade Garcia MD [address] [facility] [address] [place] [address] Social History Tobacco Use Types Packs/Day Years Used Date Smoking Tobacco: Never Assessed Comments Unknown Sex and Gender Information Value Date Recorded Sex Assigned at Not on file Legal Sex Female 4:23 AM RN TEAM LEADER Gender Identity Not on file Sexual Orientation Not on file documented as of this encounter Plan of Treatment Not on file documented as of this encounter Visit Diagnoses Not on filedocumented in this encounter
--- OUTSIDE RECORDS SUMMARY | 2025-03-13 18:20 | XMS_ITS | Encounter Summary ---
Author Organization [facility] Address [address] [place] [address] Care Team Providers Care Rfid Analyst Name Role Phone Unavailable Primary Care Provider Unavailabl e Encounter Details Date Type Department Care Team (Latest Contact Info) Description 04/30/2000 Outpatient Historical [facility] [address] [place] [address] Guy Moise MD NO ADDRESS ON FILE Abdominal pain, unspecified site (Primary Dx) Social History Tobacco Use Types Packs/Day Years Used Date Smoking Tobacco: Never Assessed Comments Unknown Sex and Gender Information Value Date Recorded Sex Assigned at Not on file Legal Sex Female 4:23 AM SAP DATA ARCHITECT Gender Identity Not on file Sexual Orientation Not on file documented as of this encounter Plan of Treatment Not on file documented as of this encounter Visit Diagnoses Diagnosis Abdominal pain, unspecified site- Primary documented in this encounter
--- OUTSIDE RECORDS SUMMARY | 2025-03-13 18:20 | XMS_ITS | Clinical Summary ---
Author Organization [facility] Address [facility] [place] [address] Care Team Providers Care Continuous Improvement Intern Name Role Phone Unavailable Primary Care [...] on file Legal Sex Female 4:23 AM TIN CONTAINER STRAIGHTENER Gender Identity Not on file Sexual Orientation [...] SCREENING 2023 INFLUENZA VACCINE (#1) 2024 Insurance [facility]
--- OUTSIDE RECORDS SUMMARY | 2025-03-13 18:20 | XMS_ITS | Encounter Summary ---
Author Organization [facility] Address [address] [place] [address] Care Team Providers Care Ironing Pleater Name Role Phone Unavailable Primary Care Provider Unavailabl e Encounter Details Date Type Department Care Team (Latest Contact Info) Description 02/05/2000 Outpatient Historical [facility] Rosalino Plascencia NO ADDRESS ON FILE Contusion of finger (Primary Dx) Social History Tobacco Use Types Packs/Day Years Used Date Smoking Tobacco: Never Assessed Comments Unknown Sex and Gender Information Value Date Recorded Sex Assigned at Not on file Legal Sex Female 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
--- OUTSIDE RECORDS SUMMARY | 2025-03-13 18:20 | XMS_ITS | Encounter Summary ---
Author Organization [facility] Address [address] [place] [address] Care Team Providers Care Felt Finisher Name Role Phone Unavailable Primary Care Provider Unavailabl e Encounter Details Date Type Department Care Team (Latest Contact Info) Description 04/29/2000 Outpatient Historical HIS [facility] Rosalino Plascencia NO ADDRESS ON FILE Acute pharyngitis (Primary Dx) Social History Tobacco Use Types Packs/Day Years Used Date Smoking Tobacco: Never Assessed Comments Unknown Sex and Gender Information Value Date Recorded Sex Assigned at Not on file Legal Sex Female 4:23 AM HYDRAULIC CHAIR ASSEMBLER Gender Identity Not on file Sexual Orientation Not on file documented as of this encounter Plan of Treatment Not on file documented as of this encounter Visit Diagnoses Diagnosis Acute pharyngitis- Primary documented in this encounter
--- OUTSIDE RECORDS SUMMARY | 2025-03-13 18:20 | XMS_ITS | Encounter Summary ---
Author Organization [facility] Address [address] [place] [address] Care Team Providers Care Lead Fabricator Name Role Phone Unavailable Primary Care Provider Unavailabl e Encounter Details Date Type Department Care Team (Latest Contact Info) Description 04/07/2000 Outpatient Historical [facility] Tyshawn Dang Jr., MD [address] [place] [address] Acute sinusitis, unspecified (Primary Dx) Social History Tobacco Use Types Packs/Day Years Used Date Smoking Tobacco: Never Assessed Comments Unknown Sex and Gender Information Value Date Recorded Sex Assigned at Not on file Legal Sex Female 4:23 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
--- OUTSIDE RECORDS SUMMARY | 2025-03-13 18:20 | XMS_ITS | Encounter Summary ---
Author Organization [facility] Address [address] [place] [address] Care Team Providers Care Real Estate Teacher Name Role Phone Unavailable Primary Care Provider Unavailabl e Encounter Details Date Type Department Care Team (Latest Contact Info) Description 12/16/2001 Outpatient Historical [facility] Tyshawn Dang Jr., MD [address] [place] [address] SACROILIITIS NEC (Primary Dx) Social History Tobacco Use Types Packs/Day Years Used Date Smoking Tobacco: Never Assessed Comments Unknown Sex and Gender Information Value Date Recorded Sex Assigned at Not on file 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
--- OUTSIDE RECORDS SUMMARY | 2025-03-13 18:20 | XMS_ITS | Encounter Summary ---
Author Organization [facility] Address [address] [place] [address] Care Team Providers Care Ticket Agent Name Role Phone Unavailable Primary Care [...] on file Legal Sex Female 4:23 AM ENGLISH DIVISION CHAIR Gender Identity Not on file Sexual Orientation Not on file documented as of this encounter Plan of Treatment Not on file documented as of this encounter Visit Diagnoses Diagnosis Pain in joint, lower leg- Primary documented in this encounter
--- OUTSIDE RECORDS SUMMARY | 2025-03-13 18:20 | XMS_ITS | Encounter Summary ---
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
--- OUTSIDE RECORDS SUMMARY | 2025-03-13 18:20 | XMS_ITS | Encounter Summary ---
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
--- OUTSIDE RECORDS SUMMARY | 2025-03-13 18:20 | XMS_ITS | Encounter Summary ---
Author Organization [facility] Address [address] [place] [address] Care Team Providers Care Collection Clerk Name Role Phone Unavailable Primary Care Provider Unavailabl e Encounter Details Date Type Department Care Team (Latest Contact Info) Description 01/10/1999 Outpatient Historical [facility] Tyshawn Dang Jr., MD [address] [place] [address] Allergic rhinitis, cause unspecified (Primary Dx) Social History Tobacco Use Types Packs/Day Years Used Date Smoking Tobacco: Never Assessed Comments Unknown Sex and Gender Information Value Date Recorded Sex Assigned at Not on file 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
--- OUTSIDE RECORDS SUMMARY | 2025-03-13 18:20 | XMS_ITS | Encounter Summary ---
Author Organization [facility] Address [address] [place] [address] Care Team Providers Care Court Of Appeals Judge Name Role Phone Unavailable Primary Care Provider Unavailabl e Encounter Details Date Type Department Care Team (Latest Contact Info) Description 04/30/2000 Outpatient Historical [facility] [address] [place] [address] Guy Moise MD NO ADDRESS ON FILE Unspecified symptom associated with female genital organs (Primary Dx) Social History Tobacco Use Types Packs/Day Years Used Date Smoking Tobacco: Never Assessed Comments Unknown Sex and Gender Information Value Date Recorded Sex Assigned at Not on file Legal Sex Female 4:23 AM BREAKER UP Gender Identity Not on file Sexual Orientation Not on file documented as of this encounter Plan of Treatment Not on file documented as of this encounter Visit Diagnoses Diagnosis Unspecified symptom associated with female genital organs- Primary documented in this encounter
--- OUTSIDE RECORDS SUMMARY | 2025-03-13 18:20 | XMS_ITS | Encounter Summary ---
Author Organization [facility] Address [address] [place] [address] Care Team Providers Care Rhinologist Name Role Phone Unavailable Primary Care Provider Unavailabl e Encounter Details Date Type Department Care Team (Latest Contact Info) Description 02/26/2000 Outpatient Historical [facility] Rosalino Plascencia NO ADDRESS ON FILE Excessive menstruation (Primary Dx) Social History Tobacco Use Types Packs/Day Years Used Date Smoking Tobacco: Never Assessed Comments Unknown Sex and Gender Information Value Date Recorded Sex Assigned at Not on file 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
--- OUTSIDE RECORDS SUMMARY | 2025-03-13 18:20 | XMS_ITS | Encounter Summary ---
Author Organization [facility] Address [address] [place] [address] Care Team Providers Care Boring Machine Operator Horizontal Name Role Phone Unavailable Primary Care Provider Unavailabl e Encounter Details Date Type Department Care Team (Latest Contact Info) Description 09/18/1999 Outpatient Historical [facility] [address] [place] [address] Jade Garcia MD [address] [facility] [address], [facility] [address] [place] [address] Irregular menstruation (Primary Dx) Social History Tobacco Use Types Packs/Day Years Used Date Smoking Tobacco: Never Assessed Comments Unknown Sex and Gender Information Value Date Recorded Sex Assigned at Not on file 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
--- OUTSIDE RECORDS SUMMARY | 2025-03-13 18:20 | XMS_ITS | Encounter Summary ---
Author Organization [facility] Address [address] [place] [address] Care Team Providers Care Buyer Name Role Phone Unavailable Primary Care Provider Unavailabl e Encounter Details Date Type Department Care Team (Latest Contact Info) Description 05/16/[address] [facility] Tyshawn Dang Jr., MD [address] [place] [address] Popliteal synovial cyst (Primary Dx); Closed dislocation of knee, unspecified part; General counseling for prescription of oral contraceptives Social History Tobacco Use Types Packs/Day Years Used Date Smoking Tobacco: Never Assessed Comments Unknown Sex and Gender Information Value Date Recorded Sex Assigned at Not on file 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
--- OUTSIDE RECORDS SUMMARY | 2025-03-13 18:20 | XMS_ITS | Encounter Summary ---
Author Organization [facility] Address [address] [place] [address] Care Team Providers Care Supervisor Publications Production Name Role Phone Unavailable Primary Care Provider Unavailabl e Encounter Details Date Type Department Care Team (Latest Contact Info) Description 07/05/1998 Outpatient Historical [facility] Tyshawn Dang Jr., MD [address] [place] [address] Acute upper respiratory infections of unspecified site (Primary Dx); Female infertility associated with anovulation Social History Tobacco Use Types Packs/Day Years Used Date Smoking Tobacco: Never Assessed Comments Unknown Sex and Gender Information Value Date Recorded Sex Assigned at Not on file Legal Sex Female 4:23 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
--- OUTSIDE RECORDS SUMMARY | 2025-03-13 18:20 | XMS_ITS | Encounter Summary ---
Author Organization [facility] Address [address] [place] [address] Care Team Providers Care General Farm Manager Name Role Phone Unavailable Primary Care Provider Unavailabl e Encounter Details Date Type Department Care Team (Latest Contact Info) Description 01/02/1999 Outpatient Historical [facility] Rosalino Plascencia NO ADDRESS ON FILE Acute pharyngitis (Primary Dx) Social History Tobacco Use Types Packs/Day Years Used Date Smoking Tobacco: Never Assessed Comments Unknown Sex and Gender Information Value Date Recorded Sex Assigned at Not on file 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
--- OUTSIDE RECORDS SUMMARY | 2025-03-13 18:20 | XMS_ITS | Encounter Summary ---
Author Organization [facility] Address [address] [place] [address] Care Team Providers Care Manager Specialty Name Role Phone Unavailable Primary Care Provider Unavailabl e Encounter Details Date Type Department Care Team (Latest Contact Info) Description 09/03/1999 Outpatient Historical [facility] Tyshawn Dang Jr., MD [facility] [place] [address] Female infertility associated with anovulation (Primary Dx) Social History Tobacco Use Types Packs/Day Years Used Date Smoking Tobacco: Never Assessed Comments Unknown Sex and Gender Information Value Date Recorded Sex Assigned at Not on file 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
--- OUTSIDE RECORDS SUMMARY | 2025-03-13 18:20 | XMS_ITS | Encounter Summary ---
Author Organization [facility] Address [address] [place] [address] Care Team Providers Care Easement Man Name Role Phone Unavailable Primary Care Provider Unavailabl e Encounter Details Date Type Department Care Team (Latest Contact Info) Description 12/20/1999 Outpatient Historical [facility] Tyshawn Dang Jr., MD [address] [place] [address] Acute pharyngitis (Primary Dx) Social History Tobacco Use Types Packs/Day Years Used Date Smoking Tobacco: Never Assessed Comments Unknown Sex and Gender Information Value Date Recorded Sex Assigned at Not on file 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
--- OUTSIDE RECORDS SUMMARY | 2025-03-13 18:20 | XMS_ITS | Encounter Summary ---
Author Organization [facility] Address [address] [place] [address] Care Team Providers Care Database Administrator Name Role Phone Unavailable Primary Care Provider Unavailabl e Encounter Details Date Type Department Care Team (Latest Contact Info) Description 06/06/1998 Outpatient Historical [facility] Tyshawn Dang Jr., MD [address] [place] [address] Allergic rhinitis, cause unspecified (Primary Dx) Social History Tobacco Use Types Packs/Day Years Used Date Smoking Tobacco: Never Assessed Comments Unknown Sex and Gender Information Value Date Recorded Sex Assigned at Not on file Legal Sex Female 4:23 AM GENERAL SURGERY PHYSICIAN ASSISTANT Gender Identity Not on file Sexual Orientation Not on file documented as of this encounter Plan of Treatment Not on file documented as of this encounter Visit Diagnoses Diagnosis Allergic rhinitis, cause unspecified- Primary documented in this encounter
--- OUTSIDE RECORDS SUMMARY | 2025-03-13 18:20 | XMS_ITS | Encounter Summary ---
Author Organization [facility] Address [address] [place] [address] Care Team Providers Care Associate Application Developer Name Role Phone Unavailable Primary Care Provider Unavailabl e Encounter Details Date Type Department Care Team (Latest Contact Info) Description 10/30/1998 Outpatient Historical [facility] Tyshawn Dang Jr., MD [address] [place] [address] Allergic rhinitis, cause unspecified (Primary Dx) Social History Tobacco Use Types Packs/Day Years Used Date Smoking Tobacco: Never Assessed Comments Unknown Sex and Gender Information Value Date Recorded Sex Assigned at Not on file 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
--- OUTSIDE RECORDS SUMMARY | 2025-03-13 18:20 | XMS_ITS | Encounter Summary ---
Author Organization [facility] Address [address] [place] [address] Care Team Providers Care Restaurant Area Director Name Role Phone Unavailable Primary Care Provider Unavailabl e Encounter Details Date Type Department Care Team (Latest Contact Info) Description 05/04/1999 Outpatient Historical [facility] [place] [address] [place] [address] Pawan Yo MD NO ADDRESS ON FILE Allergic rhinitis, cause unspecified (Primary Dx); Nasal/sinus dis NEC; Chronic rhinitis; Other chronic allergic conjunctivitis Social History Tobacco Use Types Packs/Day Years Used Date Smoking Tobacco: Never Assessed Comments Unknown Sex and Gender Information Value Date Recorded Sex Assigned at Not on file 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
--- OUTSIDE RECORDS SUMMARY | 2025-03-13 18:20 | XMS_ITS | Encounter Summary ---
Author Organization [facility] Address [address] [place] [address] Care Team Providers Care Professor Of Counseling Name Role Phone Unavailable Primary Care Provider Unavailabl e Encounter Details Date Type Department Care Team (Latest Contact Info) Description 04/09/2000 Outpatient Historical [facility] Rosalino Plascencia NO ADDRESS ON FILE Other diseases of trachea and bronchus, not elsewhere classified (Primary Dx) Social History Tobacco Use Types Packs/Day Years Used Date Smoking Tobacco: Never Assessed Comments Unknown Sex and Gender Information Value Date Recorded Sex Assigned at Not on file Legal Sex Female 4:23 AM TREE WARDEN Gender Identity Not on file Sexual Orientation Not on file documented as of this encounter Plan of Treatment Not on file documented as of this encounter Visit Diagnoses Diagnosis Other diseases of trachea and bronchus, not elsewhere classified- Primary documented in this encounter
--- OUTSIDE RECORDS SUMMARY | 2025-03-13 18:20 | XMS_ITS | Encounter Summary ---
Author Organization [facility] Address [address] [place] [address] Care Team Providers Care Conservation Worker Name Role Phone Unavailable Primary Care Provider Unavailabl e Encounter Details Date Type Department Care Team (Latest Contact Info) Description 03/21/2000 Outpatient Historical [facility] Tyshawn Dang Jr., MD [address] [place] [address] Unspecified asthma(493.90) (Primary Dx) Social History Tobacco Use Types Packs/Day Years Used Date Smoking Tobacco: Never Assessed Comments Unknown Sex and Gender Information Value Date Recorded Sex Assigned at Not on file Legal Sex Female 4:23 AM PSYCHOLOGY DEPARTMENT 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
--- OUTSIDE RECORDS SUMMARY | 2025-03-13 18:20 | XMS_ITS | Encounter Summary ---
Author Organization [facility] Address [address] [place] [address] Care Team Providers Care Roll Bucker Name Role Phone Unavailable Primary Care Provider Unavailabl e Encounter Details Date Type Department Care Team (Latest Contact Info) Description 05/30/2000 Outpatient Historical [facility] OUTSIDE SALES PROFESSIONAL 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
--- OUTSIDE RECORDS SUMMARY | 2025-03-13 18:21 | XMS_ITS | Encounter Summary ---
Author Organization [facility] Address [address] [place] [address] Care Team Providers Care Petroleum Sampler Name Role Phone Unavailable Primary Care Provider Unavailabl e Encounter Details Date Type Department Care Team (Latest Contact Info) Description 11/13/1998 Outpatient Historical [facility] Tyshawn Dang Jr., MD [address] [place] [address] Allergic rhinitis, cause unspecified (Primary Dx) Social History Tobacco Use Types Packs/Day Years Used Date Smoking Tobacco: Never Assessed Comments Unknown Sex and Gender Information Value Date Recorded Sex Assigned at Not on file Legal Sex Female 4:23 AM BACK WINDER Gender Identity Not on file Sexual Orientation Not on file documented as of this encounter Plan of Treatment Not on file documented as of this encounter Visit Diagnoses Diagnosis Allergic rhinitis, cause unspecified- Primary documented in this encounter
--- OUTSIDE RECORDS SUMMARY | 2025-03-13 18:21 | XMS_ITS | Encounter Summary ---
Author Organization [facility] Address [address] [place] [address] Care Team Providers Care Drop Wire Aligner Name Role Phone Unavailable Primary Care Provider Unavailabl e Encounter Details Date Type Department Care Team (Latest Contact Info) Description 05/11/1998 Outpatient Historical [facility] Tyshawn Dang Jr., MD [address] [place] [address] Allergic rhinitis, cause unspecified (Primary Dx) Social History Tobacco Use Types Packs/Day Years Used Date Smoking Tobacco: Never Assessed Comments Unknown Sex and Gender Information Value Date Recorded Sex Assigned at Not on file 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
--- OUTSIDE RECORDS SUMMARY | 2025-03-13 18:21 | XMS_ITS | Encounter Summary ---
[facility] Organization [facility] Address [address] [place] [address] Care Team Providers Care Tree Trimmer Name Role Phone Unavailable Primary Care Provider [...] on file Legal Sex Female 4:23 AM ELECTRICAL TROUBLESHOOTER Gender Identity Not on file Sexual Orientation Not on file documented as of this encounter Plan of Treatment Not on file documented as of this encounter Visit Diagnoses Diagnosis Other and unspecified derangement of medial meniscus- Primary documented in this encounter
--- OUTSIDE RECORDS SUMMARY | 2025-03-13 18:21 | XMS_ITS | Encounter Summary ---
Author Organization [facility] Address [address] [place] [address] Care Team Providers Care Fur Blower Operator Name Role Phone Unavailable Primary Care Provider Unavailabl e Encounter Details Date Type Department Care Team (Latest Contact Info) Description 04/12/1998 Outpatient Historical [facility] Tyshawn Dang Jr., MD [address] [place] [address] Allergic rhinitis, cause unspecified (Primary Dx) Social History Tobacco Use Types Packs/Day Years Used Date Smoking Tobacco: Never Assessed Comments Unknown Sex and Gender Information Value Date Recorded Sex Assigned at Not on file Legal Sex Female 4:23 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
--- OUTSIDE RECORDS SUMMARY | 2025-03-13 18:21 | XMS_ITS | Encounter Summary ---
Author Organization [facility] Address [address] [place] [address] Care Team Providers Care Track Service Person Name Role Phone Unavailable Primary Care Provider Unavailabl e Encounter Details Date Type Department Care Team (Latest Contact Info) Description 03/10/2002 Outpatient Historical [facility] Tyshawn Dang Jr., MD [address] [place] [address] ALLERGIC RHINITIS NEC (Primary Dx); ACNE NEC Social History Tobacco Use Types Packs/Day Years Used Date Smoking Tobacco: Never Assessed Comments Unknown Sex and Gender Information Value Date Recorded Sex Assigned at Not on file 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
--- OUTSIDE RECORDS SUMMARY | 2025-03-13 18:21 | XMS_ITS | Encounter Summary ---
[facility] Organization [facility] Address [address] [place] [address] Care Team Providers Care Verification Lead Name Role Phone Unavailable Primary Care Provider Unavailabl e Encounter Details Date Type Department Care Team (Latest Contact Info) Description 01/20/2002 Outpatient Historical [facility] Diaz Silverio MD [address], [place] [address] OTITIS MEDIA NOS (Primary Dx) Social History Tobacco Use Types Packs/Day Years Used Date Smoking Tobacco: Never Assessed Comments Unknown Sex and Gender Information Value Date Recorded Sex Assigned at Not on file Legal Sex Female 4:23 AM BAGGAGE AGENT SUPERVISOR Gender Identity Not on file Sexual Orientation Not on file documented as of this encounter Plan of Treatment Not on file documented as of this encounter Visit Diagnoses Diagnosis Unspecified otitis media- Primary documented in this encounter
--- OUTSIDE RECORDS SUMMARY | 2025-03-13 18:21 | XMS_ITS | Encounter Summary ---
Author Organization [facility] Address [address] [place] [address] Care Team Providers Care Official Greeter Name Role Phone Unavailable Primary Care Provider Unavailabl e Encounter Details Date Type Department Care Team (Latest Contact Info) Description 11/22/1997 Outpatient Historical [facility] [place] [address] [place] [id number] Pawan Yo MD NO ADDRESS ON FILE Allergic rhinitis, cause unspecified (Primary Dx); Other chronic allergic conjunctivitis Social History Tobacco Use Types Packs/Day Years Used Date Smoking Tobacco: Never Assessed Comments Unknown Sex and Gender Information Value Date Recorded Sex Assigned at Not on file Legal Sex Female 4:23 AM PUBLIC IMPROVEMENT INSPECTOR Gender Identity Not on file Sexual Orientation Not on file documented as of this encounter Plan of Treatment Not on file documented as of this encounter Visit Diagnoses Diagnosis Allergic rhinitis, cause unspecified- Primary Other chronic allergic conjunctivitis documented in this encounter
[2025-03-13] MEDS: HYDROcodone-acetaminophen 5-325 mg Tablet 1 TAB PO (21:37)
[2025-03-13] MEDS: MELATONIN 3 MG TABLET PO (23:41)
[2025-03-14] VITALS (11 sets, daily range): BP systolic 161–179; BP diastolic 77–96; PULSE 63–89; RESP 16–20; TEMP 36.4–37; O2SAT 95–98; BMI 30.2
[2025-03-14] MEDS: metoclopramide 5 mg/mL SDV 2 mL IVP ×4 (01:11→22:58)
[2025-03-14] MEDS: HYDROcodone-acetaminophen 5-325 mg Tablet 1 TAB PO ×5 (01:40→22:34)
[2025-03-14] MEDS: morphine 4 mg/mL SDV 1 mL IVP ×5 (02:45→20:17)
[2025-03-14] MEDS: sodium bicarbonate 8.4% syr 150 MEQ in dextrose 5% 200 ML 700 MEQ IV (03:04)
[2025-03-14] MEDS: ondansetron 2 mg/ML SDV 2 mL 8 MG IVP ×3 (03:53→20:14)
[2025-03-14 05:09] LABS: Anion Gap 18.2 (5-19); Blood Urea Nitrogen 4 mg/dL (6-20); Calcium 8.5 mg/dL (8.5-10.5); Carbon Dioxide 24 mmol/L (22-29); Chloride 98 mmol/L (98-107); Creatinine Clr Calc Pharmacy 140.2435; Glucose 161 mg/dL (65-115); Magnesium 1.4 mg/dL (1.7-2.3); Osmolality Calculated 284 mOsm/kg (285-295); Potassium 3.2 mmol/L (3.5-5.1); Sodium 137 mmol/L (136-145)
[2025-03-14 05:20] LABS: Lipase 957 U/L (13-60)
[2025-03-14] MEDS: magnesium sulfate premix 2 GM/50 ML PIGGYBACK IV ×2 (06:53→20:35)
--- NOTE | 2025-03-14 09:45 | PC.CHAP ---
Pastoral Care Encounter/Spiritual Assessment Type of Contact [] Declined telecommunications field engineer visit [] Patient/Family/Request visit [] Outpatient visit [] Follow-up visit [] Physician referral [] Code/Alert [x] Routine visit [] Staff referral [] Actively dying [x] Patient sleeping [] Family support [] [] Out of room [] Palliative care [] [] Receiving care in room [] Pre-surgical visit [] Trauma [] Long length of stay [] ICU visit [] Other: Relational/Emotional Strength [] Patient feels connected with others/family/visitors/staff [] Distress [] Loneliness/isolation [] Abandonment Spirituality of Patient [] Person of [place] [] Attends Spiritism of their [place] [] Believes in Prayer [] Reads Bible or Pentecostal materials [] There are Spiritual issues to be addressed Circular [employer] Interventions [x] Prayer [] Active listening [] Non-anxious presence [] Spiritual/emotional support [] Crisis/trauma care [] Spiritual counseling [] Bereavement support [] Provided bereavement packet [] Provided Bible/devotional materials [] Provided toy/stuffed animal, coloring book to patient or family member [] Provided Communion [] Anointing/[place] [] Salvation [] Completed spiritual assessment [] Other: Impact on Illness or Injury [] Angry [] Fearful [] Anxious [] Often cries [] Exhaustion [] Unable to work [] Unable to attend buddhism [] Unable to walk/stand [] Unable to read [] Unable to drive [] Unable to eat/drink [] Unable to sleep [] Unable to be with family [] Patient intubated [] Other: Summary Time spent with patient
--- NOTE | 2025-03-14 11:42 | PICC.NOTE ---
Referred to vascular access nurse for poor access and no current IV. 20 gauge peripheral IV started to left forearm using US guidance. Good blood return noted. Flushed without difficulty. AUGUSTUS Tidwell, notified.
--- NOTE | 2025-03-14 20:47 | P.PN_ITS ---
Subjective 2 Subjective: 39-year-old female still compl aining of significant abdominal pain. She states this is the third time she has had pancreatitis. She had initially been drinking for drinks on each weekend day until she got pancreatitis then dropped to 1 or 2 drinks going out with friends or about once every 3 to 5 months. She states she is cut way back since her second episode of pancreatitis but does still drink some as the description above. She denies recent alcohol binge. She has never had ERCP evaluation or MRCP. Vitals/I&O/Wt Last Vital Signs Temp 97.7 F 03/14/25 19:32 Pulse 87 03/14/25 19:32 Resp 16 03/14/25 20:17 BP 167/96 03/14/25 19:32 Pulse Ox 95 03/14/25 19:32 O2 Del Method Room Air 03/14/25 04:00 03/14/25 03/14/25 03/14/25 06:59 14:59 22:59 Intake Total 1317.50 / 2317.50 50 / 50 Balance 1317.50 / 2317.50 50 / 50 Weight last 48 hrs Weight 74.843 kg Weight 74.843 kg Weight 72.575 kg Physical Exam 2 Narrative: General well-developed female in no acute cardiopulmonary stress CV regular rate and rhythm Lungs clear to auscultation bilaterally Abdomen positive bowel tones soft moderately tender epigastric and right upper quadrant Data 03/13/25 12:13 03/14/25 04:43 A&P Assessment and plan 1. Acute on chronic pancreatitis: Continue with clear liquids only. Alcohol use admitted to now which she denied initially. Patient was rosacea and central obesity is unclear to me whether she is drinking more than she reports. Will proceed with MRCP to look for pancreatic duct abnormally 2. Tobacco use: Nicotine patch 3. Hypomagnesemia: Replaced with 2 g IV now already received 2 g earlier this morning 4. Nausea and vomiting: Continue Zofran 5. Abdominal pain: Continue with morphine well n.p.o. except for ice chips sips and meds PDMP PDMP Reviewed: Not Reviewed Attestations 2 Medical Necessity Statement*: Patient remains in the hospital for pancreatitis and will require greater than 2 midnight Coding Level of Care Code 87740 Diagnoses Acute on chronic pancreatitis K85.90; K86.1 Tobacco use Z72.0 Hypomagnesemia E83.42 Nausea and vomiting R11.2 Abdominal pain R10.9 Time Spent (min) 26
[2025-03-15] VITALS (11 sets, daily range): BP systolic 144–175; BP diastolic 77–106; PULSE 79–109; RESP 16–17; TEMP 36.6–36.9; O2SAT 95–97
[2025-03-15] MEDS: morphine 4 mg/mL SDV 1 mL IVP ×5 (00:42→20:24)
[2025-03-15] MEDS: HYDROcodone-acetaminophen 5-325 mg Tablet 1 TAB PO ×5 (02:37→23:24)
[2025-03-15] MEDS: ondansetron 2 mg/ML SDV 2 mL 8 MG IVP ×3 (04:48→21:14)
[2025-03-15] MEDS: metoclopramide 5 mg/mL SDV 2 mL IVP ×3 (06:39→23:24)
--- NOTE | 2025-03-15 09:25 | MRR_ITS ---
PROCEDURE INFORMATION: Exam: MR Abdomen Without Contrast, Biliary System Exam date and time: 03/15/2025 3:44 PM Age: 39 years old Clinical indication: Abdominal pain; Acute; Pancreatitis; Additional info: Evaluate recurrent pancreatitis for mass or duct abnormality TECHNIQUE: Imaging protocol: MR of the abdomen without contrast. Exam focused on the biliary system and pancreatic ducts. Routine 3D-MRCP images were acquired and processed without radiologist supervision. COMPARISON: CT abdomen pelvis w con* [id number] 03/13/2025 1:27 PM FINDINGS: Liver: Hepatic steatosis. Gallbladder and biliary ducts: Distended gallbladder. No gallstones identified. No intra or extrahepatic biliary ductal dilatation. Pancreas: Mild enlargement with edema of the pancreatic head and body. Edema with adjacent fluid to the pancreas. Pancreatic duct measures up to 4 mm within proximal portion, unchanged. Intraperitoneal space: No fluid collection. MR/MR MRCP [id number] IMPRESSION: 1. Acute pancreatitis. No abscess or pseudocyst formation. 2. No cholelithiasis. No intra or extrahepatic biliary ductal dilatation. 3. Hepatic steatosis.
--- NOTE | 2025-03-15 09:55 | PC.CHAP ---
Pastoral Care Encounter/Spiritual Assessment Type of Contact [] Declined document control assistant visit [] Patient/Family/Request visit [] Outpatient visit [] Follow-up visit [] Physician referral [] Code/Alert [x] Routine visit [] Staff referral [] Actively dying [] Patient sleeping [] Family support [] [] Out of room [] Palliative care [] [] Receiving care in room [] Pre-surgical visit [] Trauma [] Long length of stay [] ICU visit [] Other: Relational/Emotional Strength [x] Patient feels connected with others/family/visitors/staff [] Distress [] Loneliness/isolation [] Abandonment Spirituality of Patient [x] Person of Fiorella [] Attends Gnosticism of their [place] [x] Believes in Prayer [] Reads Bible or Orthodoxy materials [] There are Spiritual issues to be addressed Childcare Center Administrator Interventions [x] Prayer [x] Active listening [x] Non-anxious presence [x] Spiritual/emotional support [] Crisis/trauma care [] Spiritual counseling [] Bereavement support [] Provided bereavement packet [] Provided Bible/devotional materials [] Provided toy/stuffed animal, coloring book to patient or family member [] Provided Communion [] Anointing/[place] [] Salvation [x] Completed spiritual assessment [] Other: Impact on Illness or Injury [] Angry [] Fearful [] Anxious [] Often cries [] Exhaustion [] Unable to work [] Unable to attend orthodoxy [] Unable to walk/stand [] Unable to read [] Unable to drive [] Unable to eat/drink [] Unable to sleep [] Unable to be with family [] Patient intubated [] Other: Summary Time spent with patient 10 min
--- NOTE | 2025-03-15 10:19 | PC.NURSE ---
pt off floor to MRI with staff via w/c.
--- NOTE | 2025-03-15 18:07 | P.PN_ITS ---
Subjective 2 Subjective: 39-year-old female still compl aining of significant abdominal pain. She states this is the third time she has had pancreatitis. She had initially been drinking 4 drinks on each weekend day until she got pancreatitis then dropped to 1 or 2 drinks going out with friends or about once every 3 to 5 months. She states she is cut way back since her second episode of pancreatitis but does still drink some as the description above. She denies recent alcohol binge. MRCP done today not yet read. Patient states she feels better and has been up more but she still can keep ice chips down and has vomited she states her urine is darker than usual Vitals/I&O/Wt Last Vital Signs Temp 98.5 F 03/15/25 15:30 Pulse 86 03/15/25 15:30 Resp 16 03/15/25 15:30 BP 144/89 03/15/25 15:30 Pulse Ox 95 03/15/25 15:30 O2 Del Method Room Air 03/15/25 15:30 03/15/25 03/15/25 03/15/25 06:59 14:59 22:59 Intake Total 1000 / 1000 Output Total 550 / 900 300 / 300 50 / 350 Balance -550 / 200 700 / 700 -50 / 650 Weight last 48 hrs Weight 75.296 kg Weight 74.843 kg Weight 74.843 kg Physical Exam 2 Narrative: General well-developed female in no acute cardiopulmonary stress CV regular rate and rhythm Lungs clear to auscultation bilaterally Abdomen positive bowel tones soft moderately tender epigastric and right upper quadrant and LUQ Calves no tenderness cords pretibial edema Data 03/13/25 12:13 03/14/25 04:43 A&P Assessment and plan 1. Acute on chronic pancreatitis: Continue ice chips sips and chips only. Alcohol use admitted to now which she denied initially. Patient with rosacea and central obesity is unclear to me whether she is drinking more than she reports. Will proceed with MRCP to look for pancreatic duct abnormally. Slow to improve repeat lipase CHEM panel in the morning 2. Tobacco use: Nicotine patch 3. Hypomagnesemia: Repeat labs in morning 4. Nausea and vomiting: Continue Zofran 5. Abdominal pain: Continue with morphine well n.p.o. except for ice chips sips and meds PDMP PDMP Reviewed: Not Reviewed Attestations 2 Medical Necessity Statement*: Patient remains in the hospital with acute pancreatitis and will require additional midnight Coding Level of Care Code 53832 Diagnoses Acute on chronic pancreatitis K85.90; K86.1 Tobacco use Z72.0 Hypomagnesemia E83.42 Nausea and vomiting R11.2 Abdominal pain R10.9 Time Spent (min) 25
[2025-03-15] MEDS: sodium chlor 0.9% + KCl 20 mEq 20 MEQ/1,000 ML BAG 125 MEQ IV (22:10)
[2025-03-16] VITALS (11 sets, daily range): BP systolic 152–172; BP diastolic 76–93; PULSE 68–82; RESP 16–17; TEMP 36.4–37; O2SAT 96–97
[2025-03-16] MEDS: morphine 4 mg/mL SDV 1 mL IVP ×3 (03:02→16:52)
[2025-03-16] MEDS: HYDROcodone-acetaminophen 5-325 mg Tablet 1 TAB PO ×4 (04:32→23:38)
[2025-03-16] MEDS: ondansetron 2 mg/ML SDV 2 mL 8 MG IVP ×3 (05:21→23:27)
[2025-03-16 05:28] LABS: Hematocrit 30.1 % (36-47); Hemoglobin 9.70 g/dL (11.27-16.99); Mean Corpuscular HGB Conc 32.2 g/dL (30-55); Mean Corpuscular Hemoglobin 31.8 pg (27-33); Mean Corpuscular Volume 98.7 fl (85-98); Nucleated Red Blood Cells % 0 %; Platelet Count 211 10^3/cmm (157-399); Red Blood Count 3.05 10^6/uL (3.85-5.65); White Blood Count 9.54 10^3/uL (3.29-11.43)
[2025-03-16 05:44] LABS: Alanine Aminotransferase 10 U/L (0-33); Albumin Level 3.3 g/dL (3.5-5.2); Alkaline Phosphatase 63 U/L (35-105); Anion Gap 17.3 (5-19); Aspartate Amino Transferase 13 U/L (0-32); Blood Urea Nitrogen 4 mg/dL (6-20); Calcium 8.0 mg/dL (8.5-10.5); Carbon Dioxide 21 mmol/L (22-29); Chloride 103 mmol/L (98-107); Creatinine Clr Calc Pharmacy 234.4450; Globulin 2.3 g/dL (1.3-4.6); Glucose 82 mg/dL (65-115); Osmolality Calculated 282 mOsm/kg (285-295); Potassium 3.3 mmol/L (3.5-5.1); Sodium 138 mmol/L (136-145); Total Protein 5.6 g/dL (6.6-8.7)
[2025-03-16 05:45] LABS: Lipase 169 U/L (13-60); Magnesium 1.7 mg/dL (1.7-2.3)
[2025-03-16] MEDS: sodium chlor 0.9% + KCl 20 mEq 20 MEQ/1,000 ML BAG 125 MEQ IV ×2 (07:17→20:42)
[2025-03-16] MEDS: metoclopramide 5 mg/mL SDV 2 mL IVP ×2 (07:28→18:24)
[2025-03-16] MEDS: magnesium sulfate premix 1 GM/100 ML PIGGYBACK IV (09:56)
--- NOTE | 2025-03-16 10:31 | P.PN_ITS ---
Subjective 2 Subjective: 39-year-old female still compl aining of significant abdominal pain and nausea still requiring her antiemetics overnight. Patient states her pain and nausea are mildly improved. MRCP showed no pseudocyst mass stone or pancreatic duct abnormality Vitals/I&O/Wt Last Vital Signs Temp 98.2 F 03/16/25 07:33 Pulse 68 03/16/25 07:33 Resp 17 03/16/25 07:33 BP 159/93 03/16/25 07:33 Pulse Ox 96 03/16/25 07:33 O2 Del Method Room Air 03/16/25 07:33 03/15/25 03/16/25 03/16/25 22:59 06:59 14:59 Intake Total 2000.00 / 3000.00 1000 / 4000.00 Output Total 350 / 650 300 / 950 Balance 1650.00 / 2350.00 700 / 3050.00 Weight last 48 hrs Weight 75.75 kg Weight 75.296 kg Physical Exam 2 Narrative: General well-developed female in no acute cardiopulmonary stress CV regular rate and rhythm Lungs clear to auscultation bilaterally Abdomen positive bowel tones soft moderately tender epigastric and right upper quadrant and LUQ Calves no tenderness cords pretibial edema Patient is alert oriented pleasant without signs of withdrawal Data 03/16/25 05:05 03/16/25 05:05 A&P Assessment and plan 1. Acute on chronic pancreatitis: Advance to clear liquid diet. Add pantoprazole 40 mg IV twice daily Slow to improve repeat lipase mini panel mag and Phos in the a.m. Patient needs follow-up with GI specialist for recurrent pancreatitis as an outpatient following this discharge 2. Tobacco use: Nicotine patch 3. Hypomagnesemia: Repeat labs in morning 4. Nausea and vomiting: Continue Zofran, Reglan. Add PPI to H2 denita 5. Abdominal pain: Discontinue morphine treat with oral meds PDMP PDMP Reviewed: Not Reviewed Attestations 2 Medical Necessity Statement*: Patient ross hospitalized for pancreatitis and will require additional midnight Coding Level of Care Code 81859 Diagnoses Acute on chronic pancreatitis K85.90; K86.1 Tobacco use Z72.0 Hypomagnesemia E83.42 Nausea and vomiting R11.2 Abdominal pain R10.9 Time Spent (min) 35
[2025-03-16] MEDS: pantoprazole 40 mg SDV IVP ×2 (10:38→22:22)
[2025-03-16] MEDS: potassium phosphate (mMol PO4) 30 MMOL in sodium chloride 0.9% (100 ml) 100 ML 25 MMOL IV (10:38)
[2025-03-16] MEDS: oxyCODONE 5 mg IR Tab/Cap PO ×2 (12:59→20:41)
[2025-03-17] VITALS (11 sets, daily range): BP systolic 109–167; BP diastolic 62–87; PULSE 73–94; RESP 16–18; TEMP 36.6–36.8; O2SAT 95–98
[2025-03-17] MEDS: oxyCODONE 5 mg IR Tab/Cap PO ×5 (01:50→22:56)
[2025-03-17] MEDS: MELATONIN 3 MG TABLET 6 MG PO ×2 (01:51→22:01)
[2025-03-17] MEDS: HYDROcodone-acetaminophen 5-325 mg Tablet 1 TAB PO ×4 (05:04→20:04)
[2025-03-17] MEDS: sodium chlor 0.9% + KCl 20 mEq 20 MEQ/1,000 ML BAG 125 MEQ IV ×3 (07:31→22:56)
[2025-03-17 09:09] LABS: Hematocrit 27.7 % (36-47); Hemoglobin 8.80 g/dL (11.27-16.99); Mean Corpuscular HGB Conc 31.8 g/dL (30-55); Mean Corpuscular Hemoglobin 31.2 pg (27-33); Mean Corpuscular Volume 98.2 fl (85-98); Nucleated Red Blood Cells % 0 %; Platelet Count 190 10^3/cmm (157-399); Red Blood Count 2.82 10^6/uL (3.85-5.65); White Blood Count 7.06 10^3/uL (3.29-11.43)
[2025-03-17 09:21] LABS: Chloride 101 mmol/L (98-107); Potassium 3.7 mmol/L (3.5-5.1); Sodium 135 mmol/L (136-145)
[2025-03-17 09:53] LABS: Alanine Aminotransferase 9 U/L (0-33); Albumin Level 3.3 g/dL (3.5-5.2); Alkaline Phosphatase 65 U/L (35-105); Anion Gap 18.7 (5-19); Aspartate Amino Transferase 15 U/L (0-32); Blood Urea Nitrogen 4 mg/dL (6-20); Calcium 8.5 mg/dL (8.5-10.5); Carbon Dioxide 19 mmol/L (22-29); Creatinine Clr Calc Pharmacy 176.8950; Globulin 2.3 g/dL (1.3-4.6); Glucose 83 mg/dL (65-115); Osmolality Calculated 276 mOsm/kg (285-295); Total Protein 5.6 g/dL (6.6-8.7)
[2025-03-17] MEDS: pantoprazole 40 mg SDV IVP (10:44)
[2025-03-17] MEDS: ondansetron 2 mg/ML SDV 2 mL 8 MG IVP (15:04)
--- NOTE | 2025-03-17 15:34 | P.PN_ITS ---
Subjective 2 Subjective: 39-year-old female still compl aining of significant abdominal pain and nausea still requiring her antiemetics overnight. Patient states her pain and nausea are mildly improved. MRCP showed no pseudocyst mass stone or pancreatic duct abnormality Patient tolerated clear liquid diet and is advanced to full liquid diet for lunch Vitals/I&O/Wt Last Vital Signs Temp 97.8 F 03/17/25 11:48 Pulse 79 03/17/25 11:48 Resp 18 03/17/25 12:21 BP 155/62 03/17/25 11:48 Pulse Ox 97 03/17/25 11:48 O2 Del Method Room Air 03/16/25 15:24 03/17/25 03/17/25 03/17/25 06:59 14:59 22:59 Intake Total 1000 / 2210.00 240 / 240 964.583 / 1204.583 Output Total 400 / 1725 400 / 400 Balance 600 / 485.00 -160 / -160 964.583 / 804.583 Weight last 48 hrs Weight 76.204 kg Weight 75.75 kg Physical Exam 2 Narrative: General well-developed female in no acute cardiopulmonary stress CV regular rate and rhythm Lungs clear to auscultation bilaterally Abdomen positive bowel tones soft moderately tender epigastric and right upper quadrant and LUQ Calves no tenderness cords pretibial edema Patient is alert oriented pleasant without signs of withdrawal Data 03/17/25 08:58 03/17/25 08:58 A&P Assessment and plan 1. Acute on chronic pancreatitis: Advance to full liquid diet. Continue pantoprazole 40 mg IV twice daily Slow to improve repeat lipase mini panel mag and Phos in the a.m. Patient needs follow-up with GI specialist for recurrent pancreatitis as an outpatient following this discharge 2. Tobacco use: Nicotine patch 3. Hypomagnesemia: Repeat labs in morning 4. Nausea and vomiting: Continue Zofran, Reglan. Add PPI to H2 denita 5. Abdominal pain: Discontinue morphine treat with oral meds PDMP PDMP Reviewed: Not Reviewed Attestations 2 Medical Necessity Statement*: Anticipate discharge in the morning Coding Level of Care Code 93793 Diagnoses Acute on chronic pancreatitis K85.90; K86.1 Tobacco use Z72.0 Hypomagnesemia E83.42 Nausea and vomiting R11.2 Abdominal pain R10.9 Time Spent (min) 25 Comment
[2025-03-17] MEDS: polyethylene glycol 3350 Pkt 17 gm PO (16:48)
[2025-03-18] VITALS (10 sets, daily range): BP systolic 160–193; BP diastolic 62–99; PULSE 72–80; RESP 16–18; TEMP 36.4–36.8; O2SAT 95–98
--- NOTE | 2025-03-18 02:36 | ECG_ITS ---
[email or web address] 2025-03[facility]18 Pat Name: Sadaf Horner Department: Room: 278 Gender: Female Medical Malpractice Paralegal: : 1985 Requested By: Julisa Conroy Order Number: [id number] Jimmy MD: Mckay Jade M.D. Measurements Intervals [place] Rate: 73 P: 38 MA: 166 QRS: 16 QRSD: 96 T: 18 QT: 387 QTc: 429 Interpretive Statements SINUS RHYTHM POSSIBLE ANTERIOR MYOCARDIAL INFARCTION , PROBABLY OLD [30 ms Q WAVE IN V3/V4, OR R < 0.2 mV IN V4] Compared to ECG 12/05/2022 00:09:09 Sinus arrhythmia no longer present Myocardial infarct finding still present Electronically Signed On 03-18-2025 15:23:58 CDT by Mckay Jade M.D. [email or web address]
[2025-03-18] MEDS: morphine 4 mg/mL SDV 1 mL IVP (02:59)
[2025-03-18 03:41] LABS: Troponin(5th) Baseline < 6 ng/L (0-10)
[2025-03-18] MEDS: HYDROcodone-acetaminophen 5-325 mg Tablet 1 TAB PO (05:20)
[2025-03-18 05:35] LABS: Troponin 5 2HR < 6.0 ng/L (0-10); Troponin 5 2HR Delta 0 ABS# (0-10)
[2025-03-18] MEDS: ondansetron 2 mg/ML SDV 2 mL 8 MG IVP (08:14)
[2025-03-18] MEDS: oxyCODONE 5 mg IR Tab/Cap PO (08:14)
[2025-03-18 10:00] LABS: Troponin 5 6HR < 6.0 ng/L (0-10); Troponin 5 6HR Delta 0 ng/L (0-12)
--- NOTE | 2025-03-18 11:01 | PM.DCS ---
Discharge Providers Date of Admission: 03/13/25 14:39 Date of Discharge: March 18, 2025 Attending Provider at Admission: Modesto Topete DO Attending Provider at Discharge: Srinivasan Faye MD Primary Care Provider: Bebo Culver DO Diagnoses at Discharge Discharge Diagnosis 1. Acute on chronic pancreatitis: Details from hospital stay: Improved we will treat with anti-inflammatories which we have not treated with thus far. Enzymes as high as 1000 decreased to 179 on last test. Follow-up outpatient with GI and primary care physician. Patient has been counseled to 100% avoid any alcohol. The amount of drinking the patient had been doing was not that out of the ordinary 2-3 drinks going out with friends every month or 2. She seems to be susceptible to pancreatitis and has been counseled to stop alcohol completely as well as eat a low-fat diet and follow-up with GI on referral from her PCP 2. Tobacco use: Details from hospital stay: Patient counseled to stop smoking. She was smoking half pack per day recently 3. Hypomagnesemia: Details from hospital stay: Replaced 4. Nausea and vomiting: Details from hospital stay: Continue Zofran for nausea 5. Abdominal pain: Details from hospital stay: Clear liquid diet and ibuprofen continue PPI for another 30 days 6. Hypertension: Details from hospital stay: Continue propranolol 40 mg twice a day. Start losartan 25 mg daily due to persistently elevated blood pressure here. Follow-up with PCP 7. Hepatic steatosis: Details from hospital stay: Recommended low-fat diet and weight loss Reason for Visit Reason for Visit: abd pain, n/v x4 days, hard to breathe Brief History: Sadaf Horner is a 39 year old female presents with acute abdominal pain nausea and vomiting. She carries a history of pancreatitis over the past few years. This episode started Friday. She states with her history she tries to tolerate at home with fasting. She states her nausea vomiting diarrhea was just 1 day and initially said she thought it was a GI bug. she did not feel well but she did not have significant vomiting episodes. But then Friday the vomiting started again. Again she tried fasting with no affect her symptoms continue to worsen until she finally came to the emergency room. Patient states that she has never received GI specialty care for her diagnosis of pancreatitis. She denies alcohol use consistently. She did have an episode after consuming some alcohol on a float trip. She did not have any alcohol prior to this episode. In the ER she is found to have a lipase of 207 with radiologic evidence of acute pancreatitis seen on CT. Hospital Course Hospital Course 39-year-old female still complaining of significant abdominal pain. She states this is the third time she has had pancreatitis. She had initially been drinking for drinks on each weekend day until she got pancreatitis then dropped to 1 or 2 drinks going out with friends or about once every 3 to 5 months. She states she is cut way back since her second episode of pancreatitis but does still drink some as the description above. She denies recent alcohol binge. She had never had ERCP evaluation or MRCP prior to this admission and MR CP was done which showed hepatic steatosis, acute pancreatitis but no pseudocyst abscess or duct abnormality pancreatic duct was 4 mm Patient had slow resolution of her nausea and also continues to have pain. This was treated with oxycodone and initially morphine in the hospital. She was advanced to a clear liquid diet and a full liquid diet. She ate yogurt this morning. Her 20-year-old daughter who is is an OB with [employer] and patient would like to attend her. This time we are treating with additional Toradol and patient will be on a low-fat diet. I have recommended that she follow-up with GI specialist regarding consideration of ERCP or other procedure or diagnosis that we may have missed. If patient has pain or vomiting worse despite low-fat diet and ibuprofen I have asked her to return for additional imaging Physical Exam Narrative: General well-developed well-nourished female in no acute cardiopulmonary stress she is companied by her to him and 2 young daughters. Patient has salima cheeks and increase vasculature consistent with early rosacea CV regular rate and rhythm Lungs clear to auscultation bilaterally Abdomen positive bowel tones soft not hard or rigid no rebound tenderness there is diffuse tenderness however and mild tenderness over the lower ribs as well respiration does not increase pain Calves no tenderness cords or pretibial edema Discharge Data Studies Completed and Pending Completed Studies During Hospitalization Category Date Time Status CT abdomen pelvis w con* [id number] Stat Cat Scan 03/13/25 12:14 Completed MR MRCP [id number] Routine MRI 03/15/25 09:25 Completed Radiology Impressions Abdomen/Pelvis CT 03/13/25 12:14 IMPRESSION: Acute pancreatitis involving the head and uncinate process of the pancreas similar to the last examination. Cholangiopancreatography MRI 03/15/25 09:25 IMPRESSION: 1. Acute pancreatitis. No abscess or pseudocyst formation. 2. No cholelithiasis. No intra or extrahepatic biliary ductal dilatation. 3. Hepatic steatosis. Laboratory Results WBC 7.06 10^3/uL (3.29-11.43) 03/17/25 08:58 RBC 2.82 10^6/uL (3.85-5.65) L 03/17/25 08:58 Hgb 8.80 g/dL (11.27-16.99) L 03/17/25 08:58 Hct 27.7 % (36-47) L 03/17/25 08:58 MCV 98.2 fl (85-98) H 03/17/25 08:58 MCH 31.2 pg (27-33) 03/17/25 08:58 MCHC 31.8 g/dL (30-55) 03/17/25 08:58 RDW 16.5 % (12.1-15.1) H 03/17/25 08:58 Plt Count 190 10^3/cmm (157-399) 03/17/25 08:58 MPV 9.8 fL (7.4-10.4) 03/17/25 08:58 Neut % (Auto) 64.9 % 03/17/25 08:58 Lymph % (Auto) 22.2 % 03/17/25 08:58 [place] % (Auto) 7.1 % 03/17/25 08:58 Eos % (Auto) 4.5 % 03/17/25 08:58 Baso % (Auto) 0.6 % 03/17/25 08:58 Neut # (Auto) 4.58 10^3/uL (1.8-7.7) 03/17/25 08:58 Lymph # (Auto) 1.6 10^3/uL (0.8-4.8) 03/17/25 08:58 Wheeler # (Auto) 0.5 10^3/uL (0.2-0.9) 03/17/25 08:58 Eos # (Auto) 0.3 10^3/uL (0.0-0.8) 03/17/25 08:58 Baso # (Auto) 0.0 10^3/uL (0.0-0.1) 03/17/25 08:58 Nucleated RBC % (auto) 0 % 03/17/25 08:58 Nucleated RBCs # 0.0 /100WBC 03/17/25 08:58 Sodium 135 mmol/L (136-145) L 03/17/25 08:58 Potassium 3.7 mmol/L (3.5-5.1) 03/17/25 08:58 Chloride 101 mmol/L (98-107) 03/17/25 08:58 Carbon Dioxide 19 mmol/L (22-29) L 03/17/25 08:58 Anion Gap 18.7 (5-19) 03/17/25 08:58 BUN 4 mg/dL (6-20) L 03/17/25 08:58 Creatinine 0.4 mg/dL (0.5-0.9) L 03/17/25 08:58 GFR Calculation 175.9 mL/min (90-130) H 03/17/25 08:58 Glucose 83 mg/dL (65-115) 03/17/25 08:58 Calculated Osmolality 276 mOsm/kg (285-295) L 03/17/25 08:58 Calcium 8.5 mg/dL (8.5-10.5) 03/17/25 08:58 Phosphorus 2.1 mg/dL (2.5-4.5) L 03/16/25 05:05 Magnesium 1.7 mg/dL (1.7-2.3) 03/16/25 05:05 Total Bilirubin 0.4 mg/dL (0.15-1.2) 03/17/25 08:58 AST 15 U/L (0-32) 03/17/25 08:58 ALT 9 U/L (0-33) 03/17/25 08:58 Alkaline Phosphatase 65 U/L (35-105) 03/17/25 08:58 Troponin T Baseline < 6 ng/L (0-10) 03/18/25 02:59 Troponin T 120 Minute < 6.0 ng/L (0-10) 03/18/25 05:02 Delta Troponin T 0 ABS# (0-10) 03/18/25 05:02 Troponin T Hi Sens 6Hr < 6.0 ng/L (0-10) 03/18/25 09:31 Troponin T Hi Sens 6Hr Delta 0 ng/L (0-12) 03/18/25 09:31 Total Protein 5.6 g/dL (6.6-8.7) L 03/17/25 08:58 Albumin 3.3 g/dL (3.5-5.2) L 03/17/25 08:58 Globulin 2.3 g/dL (1.3-4.6) 03/17/25 08:58 Lipase 169 U/L (13-60) H 03/16/25 05:05 25-OH Vitamin D Total 17 ng/mL (30-100) L 03/14/25 04:43 HCG, Qual Negative (Negative) 03/13/25 12:13 Urine Color [place] (Yellow) A 03/13/25 11:59 Urine Appearance Turbid (CLEAR) A 03/13/25 11:59 Urine pH 5.5 (5-7) 03/13/25 11:59 Ur Specific [place] 1.028 (1.005-1.030) 03/13/25 11:59 Urine Protein 2+ (Negative) A 03/13/25 11:59 Urine Glucose (UA) Negative (Normal) 03/13/25 11:59 Urine Ketones Trace (Negative) 03/13/25 11:59 Urine Blood Negative (Negative) 03/13/25 11:59 Urine Nitrate Negative (Negative) 03/13/25 11:59 Urine Bilirubin 2+ (Negative) H 03/13/25 11:59 Urine Urobilinogen 1.0 mg/dL (Negative) 03/13/25 11:59 Ur Leukocyte Esterase Trace (Negative) A 03/13/25 11:59 Urine RBC 0-4 /hpf (0-2) H 03/13/25 11:59 Urine WBC 5-10 /hpf (0-5) H 03/13/25 11:59 Ur Squamous Epith Cells 10-15 /hpf (0-5) H 03/13/25 11:59 Amorphous Sediment Not Reportable 03/13/25 11:59 Urine Bacteria 1+ /hpf (NONE) H 03/13/25 11:59 Hyaline Casts 5-10 /lpf H 03/13/25 11:59 Ethyl Alcohol < 10 mg/dL (0-10) 03/13/25 12:13 Influenza A (PCR) Negative (Negative) 03/13/25 12:19 Influenza Type B (PCR) Negative (Negative) 03/13/25 12:19 RSV (PCR) Negative (Negative) 03/13/25 12:19 SARS-CoV-2 (PCR) Negative (Negative) 03/13/25 12:[address] Abd/Pel: Radiologist's impression: Intraperitoneal space: Fat stranding is observed around the pancreatic head that is accompanied by a small amount of fluid extending caudally along the peritoneal margin with the retroperitoneum. The pancreatic duct in the pancreatic head measures about 4 mm in maximum diameter, unchanged. No ductal dilatation in the body and tail of the pancreas which is also unchanged. Vasculature: Unremarkable. No abdominal aortic aneurysm. Lymph nodes: Unremarkable. No enlarged lymph nodes. Urinary bladder: Unremarkable as visualized. Reproductive: Unremarkable as visualized. Bones/joints: Unremarkable. No acute fracture. Soft tissues: Unremarkable. CT/CT abdomen pelvis w con* [id number] IMPRESSION: Acute pancreatitis involving the head and uncinate process of the pancreas similar to the last examination. MRI: Radiologist's impression: Liver: Hepatic steatosis. Gallbladder and biliary ducts: Distended gallbladder. No gallstones identified. No intra or extrahepatic biliary ductal dilatation. Pancreas: Mild enlargement with edema of the pancreatic head and body. Edema with adjacent fluid to the pancreas. Pancreatic duct measures up to 4 mm within proximal portion, unchanged. Intraperitoneal space: No fluid collection. MR/MR MRCP [id number] IMPRESSION: 1. Acute pancreatitis. No abscess or pseudocyst formation. 2. No cholelithiasis. No intra or extrahepatic biliary ductal dilatation. 3. Hepatic steatosis. Vitals Last Vital Signs Temp 97.6 F 03/18/25 07:14 Pulse 72 03/18/25 07:14 Resp 17 03/18/25 08:14 BP 167/84 03/18/25 07:14 Pulse Ox 96 03/18/25 07:14 O2 Del Method Room Air 03/18/25 07:14 Discharge Plan Discharge Patient Disposition: Home Condition: Stable Prescriptions: New pantoprazole 40 mg Tablet,Delayed Release (Dr/Ec) 40 mg PO DAILY Qty: 30 0RF ibuprofen 600 mg tablet 600 mg PO TID PRN (Reason: abdominal pain) Qty: 20 0RF Rx Instructions: Take with food losartan 25 mg tablet 25 mg PO DAILY Qty: 30 0RF cholecalciferol (vitamin D3) 25 mcg (1,000 unit) capsule 25 mcg PO DAILY 90 Days Qty: 90 0RF Continued ondansetron 8 mg tablet,disintegrating 8 mg PO Q12H PRN (Reason: nausea and vomiting) Qty: 30 5RF propranolol 20 mg tablet 40 mg PO BID Referrals: Bebo Culver DO [Primary Care Provider, [facility]] Discharge Diet: Low Fat Patient Instructions: Pancreatitis (GEN), Abdominal Pain (ED), Opioid Safety, Patient Portal & [place] Instructions Activity Restrictions/Additional Instructions: Eat half portion low-fat foods until your pancreas fully recovers If you have worsening nausea vomiting or pain despite ibuprofen please return to have further lab evaluation and imaging and that can situation Stop drinking alcohol completely. Discharge Attestations Time Spent in Discharge Care*: greater than 30 min Time Spent in Smoking Cessation: 3 to 10 minutes Stop smoking from your half packs per day to none while you are here. If you do need to use a nicotine patch wean those off and do not use replacement nicotine long-term as replacement nicotine is still bad for your coronary arteries and vasculature Quality Metrics Clinical Quality Measures [ No reported AMI, CVA or VTE this stay] Coding Level of Care Code 09221 Diagnoses Acute on chronic pancreatitis K85.90; K86.1 Tobacco use Z72.0 Hypomagnesemia E83.42 Nausea and vomiting R11.2 Abdominal pain R10.9 Hypertension I10 Hepatic steatosis K76.0 Time Spent (min) 35
== END 2025-03-18 12:36 | disposition home or self-care (01) | DRG 440 ==
LOC: ER 18:08 → MEDSURG 18:18
PROVIDERS: Internal Medicine; Admitting Provider Internal Medicine; Emergency Provider Nurse Practitioner; PCP Family Medicine; Visit Provider Internal Medicine
DX: K85.20 Alcohol induced acute pancreatitis without necrosis or infection (principal); K86.0 Alcohol-induced chronic pancreatitis; F17.210 Nicotine dependence, cigarettes, uncomplicated; E83.42 Hypomagnesemia; I10 Essential (primary) hypertension; K76.0 Fatty (change of) liver, not elsewhere classified
CPT/HCPCS: 36415; 74177; 74181; 80048; 80053; 80307; 81001; 82306; 83690; 83735; 84100; 84484; 84703; 85025; 87637; 93005; 96361; 96374; 96375; 96376; 99285; J1885; J2270; J2405; J2470; J2765; J3010; J3475; J3480; J3490; J7030; J7060; J9999